=== PATIENT | male | born 1965 | race Caucasian/White ===

== ENCOUNTER 2016-08-22 01:07 | Emergency (ER) | payer MEDICAID ==
[2016-08-22] MEDS ORDERED: HYDROmorphone 1 MG/ML 1 ML SYRINGE IM STA ×2 (01:41→02:55)
[2016-08-22] MEDS ORDERED: ORPHENADRINE 30 MG/ML 2 ML VIAL IM STA (01:49)
[2016-08-22] MEDS ORDERED: methylPREDNISolone SOD SUCCI 125 MG/2 ML VIAL IM ONE (01:49)
--- NOTE | 2016-08-22 02:05 | ED ---
Back Pain HPI - General Chief Complaint: Back Pain/Injury Stated Complaint: BACK PAIN Time Seen by Provider: 08/22/16 01:41 Source: patient, family, RN notes reviewed Limitations: no limitations - History of Present Illness Initial Comments: Patient is a 51-year-old male presenting to the with chief complaint of left sciatic pain. Patient reports that he saw Dr. delacruz today and x-rays were reviewed and showed no evidence of any acute abnormalities. Patient was discharged by Dr. Delacruz with a prescription for steroids and Flexeril. Patient reports that at that after seeing Dr. Delacruz pain did get much worse. Patient states that approximately 12:30 this evening the pain got severe. He states that shoots down the left leg consistent with sciatica. Denies acute trauma or falls. Patient denies peripheral parestesias. He states that it is worse with movement. Denies fevers and chills. Denies saddle anesthesias. - Related Data Home Medications Medication Instructions Recorded Confirmed Citalopram Hydrobromide [CeleXA] 1 tab PO DAILY 08/22/16 08/22/16 Omeprazole 40 mg PO DAILY 08/22/16 08/22/16 Previous Rx's Medication Instructions Recorded HYDROcodone/APAP 10-325MG [[place] 1 tab PO Q6H PRN #15 tab 08/22/16 10-325] Allergies Allergy/AdvReac Type Severity Reaction Status Date / Time No Known Allergies Allergy Verified 08/22/16 01:14 Review of Systems ROS Statement: Those systems with pertinent positive or pertinent negative responses have been documented in the HPI. ROS Other: All systems not noted in ROS Statement are negative. Past Medical History Past Medical History: Asthma Additional Past Medical History / Comment(s): back pain History of Any Multi-Drug Resistant Organisms: None Reported Past Surgical History: Tonsillectomy Past Psychological History: Depression Smoking Status: Former smoker Past Alcohol Use History: Occasional Past Drug Use History: None Reported General Exam - General Exam Comments Initial Comments: Is a pleasant 51-year-old male. He does not appear to be in any acute distress at this time. He does appear to be in moderate discomfort with the leg pain. Limitations: no limitations General appearance: alert, in no apparent distress Head exam: Present: atraumatic, normocephalic, normal inspection Eye exam: Present: normal appearance, PERRL, EOMI. Absent: scleral icterus, conjunctival injection, periorbital swelling ENT exam: Present: normal exam, mucous membranes moist Neck exam: Present: normal inspection. Absent: tenderness, meningismus, lymphadenopathy Respiratory exam: Present: normal lung sounds bilaterally. Absent: respiratory distress, wheezes, rales, rhonchi, stridor Cardiovascular Exam: Present: regular rate, normal rhythm, normal heart sounds. Absent: systolic murmur, diastolic murmur, rubs, gallop, clicks GI/Abdominal exam: Present: soft, normal bowel sounds. Absent: distended, tenderness, guarding, rebound, rigid Left Hip exam: Present: normal inspection, full ROM Upper Leg exam: Present: normal inspection, full ROM Knee exam: Present: normal inspection, full ROM Lower Leg exam: Present: normal inspection, full ROM Ankle exam: Present: normal inspection, full ROM Foot/Toe exam: Present: normal inspection, full ROM Neurovascular tendon exam: Present: no vascular compromise Gait: observed and normal Back exam: Present: normal inspection, other (Patient has positive straight leg test. ) Neurological exam: Present: alert, oriented X3, CN II-XII intact Psychiatric exam: Present: normal affect, normal mood Skin exam: Present: warm, dry, intact, normal color. Absent: rash Course Vital Signs 08/22/16 08/22/16 01:15 03:31 Temperature 97.9 F 97.3 F L Pulse Rate 109 H 87 Respiratory 20 18 Rate Blood Pressure 149/93 110/58 O2 Sat by Pulse 97 95 Oximetry - Reevaluation(s) Reevaluation #1: 08/22/16 02:56 was reevaluated and states that his pain is continue to persist. Patient will be given a second IM injection of Dilaudid. Medical Decision Making - Medical Decision Making Patient is a 51-year-old male presenting to the with left-sided sciatica- like pain. He stated he saw Dr. Delacruz earlier today and received imaging studies. Patient refused to have additional imaging studies at this time. He denies any specific trauma causing the pain. Patient was given IM Dilaudid, Norflex and steroid shot. Patient will be discharged home at this time with a prescription for pain medication or see his artery receiving steroids and Flexeril from his orthopedic physician. Patient understands return parameters and treatment plan was discussed. Disposition Clinical Impression: Sciatica, left side Disposition: HOME SELF-CARE Condition: Good Instructions: Acute Low Back Pain (ED), Sciatica (ED) Additional Instructions: Patient instructed to take pain medications as prescribed. Follow-up with Dr. Delacruz. Return to the [facility] if any alarming signs or symptoms occur. Prescriptions: HYDROcodone/APAP 10-325MG [[place] 10-325] 1 tab PO Q6H PRN #15 tab PRN Reason: Pain Referrals: Zara Pisano MD [Primary Care Provider] - 1-2 days Time of Disposition: 03:18
[2016-08-22] MEDS ORDERED: HYDROcodone/APAP 10-325MG 1 EACH TAB PO ONE (03:18)
[2016-08-22 03:32] VITALS: BP 110/58; PULSE 87; RESP 18; TEMP 97.3
== END 2016-08-22 03:32 | disposition home or self-care (01) ==
LOC: EC 01:07
DX: M54.32 Sciatica, left side (principal); Z79.899 Other long term (current) drug therapy; F32.9 Major depressive disorder, single episode, unspecified; Z87.891 Personal history of nicotine dependence
CPT/HCPCS: 96372 ×4; 99283; J2360; J2930; J1170

== ENCOUNTER 2016-11-26 16:55 | Emergency (ER) | payer MEDICAID, OTHER ==
[2016-11-26] MEDS ORDERED: KETOROLAC 60 MG/2 ML VIAL IM STA (17:32)
--- NOTE | 2016-11-26 17:34 | ED ---
General Adult HPI - General Chief complaint: Fall Stated complaint: Fall/[facility]HS Time Seen by Provider: 11/26/16 17:17 Source: patient, RN notes reviewed Mode of arrival: ambulatory Limitations: no limitations - History of Present Illness Initial comments: Patient 51-year-old male who presents emergency room today with chief complaint of a fall that occurred just prior to arrival. He does admit that he was at work tripped over a box falling down onto the right side of his right ribs and an outstretched right arm. She does admit that pain is worse with movements in the right side of the ribs. Patient denies any head injury or loss conscious. He denies any other complaint associated symptoms at this time. Patient denies any recent fever, chills, shortness of breath, chest pain, back pain, abdominal pain, nausea or vomiting, numbness or tingling, dysuria or hematuria, constipation or diarrhea, headaches or visual changes, or any other complaints. - Related Data Home Medications Medication Instructions Recorded Confirmed Citalopram Hydrobromide [CeleXA] 1 tab PO DAILY 08/22/16 08/22/16 Omeprazole 40 mg PO DAILY 08/22/16 08/22/16 Previous Rx's Medication Instructions Recorded HYDROcodone/APAP 10-325MG [[place] 1 tab PO Q6H PRN #15 tab 08/22/16 10-325] Ibuprofen [Motrin] 600 mg PO Q6HR PRN #40 day 11/26/16 Allergies Allergy/AdvReac Type Severity Reaction Status Date / Time No Known Allergies Allergy Verified 08/22/16 01:14 Review of Systems ROS Statement: Those systems with pertinent positive or pertinent negative responses have been documented in the HPI. ROS Other: All systems not noted in ROS Statement are negative. Past Medical History Past Medical History: Asthma Additional Past Medical History / Comment(s): back pain History of Any Multi-Drug Resistant Organisms: None Reported Past Surgical History: Tonsillectomy Past Psychological History: Depression Smoking Status: Former smoker Past Alcohol Use History: Occasional Past Drug Use History: None Reported General Exam - General Exam Comments Initial Comments: General: The patient is awake and alert, in no distress, and does not appear acutely ill. Eye: Pupils are equal, round and reactive to light, extra-ocular movements are intact. No nystagmus. There is normal conjunctiva bilaterally. No signs of icterus. Ears, nose, mouth and throat: There are moist mucous membranes and no oral lesions. Neck: The neck is supple, there is no tenderness or JVD. Cardiovascular: There is a regular rate and rhythm. No murmur, rub or gallop is appreciated. Respiratory: Lungs are clear to auscultation, respirations are non-labored, breath sounds are equal. No wheezes, stridor, rales, or rhonchi. Gastrointestinal: Soft, non-distended, non-tender abdomen without masses or organomegaly noted. There is no rebound or guarding present. No CVA tenderness. Bowel sounds are unremarkable. Musculoskeletal: Normal appearance right wrist. No obvious deformity. Shows full range of motion. Sensations intact. Pulses bilateral 2+. Strength 5/5. Mild tenderness over the distal ulna. No snuffbox tenderness. No tenderness to the right elbow go down to the right hand. Normal appearance of the right ribs no obvious bruising or deformity. Locally tender over the lateral anterior aspect of the lower right ribs. Strength 5/5. Sensation intact. Pulses equal bilaterally 2+. Neurological: A&O x 3. CN II-XII intact, There are no obvious motor or sensory deficits. Coordination appears grossly intact. Speech is normal. Skin: Skin is warm and dry and no rashes or lesions are noted. Psychiatric: Cooperative, appropriate mood & affect, normal judgment. Limitations: no limitations Course Vital Signs 11/26/16 17:00 Temperature 98.2 F Pulse Rate 100 Respiratory 20 Rate Blood Pressure 128/89 O2 Sat by Pulse 98 Oximetry Medical Decision Making - Medical Decision Making X-rays reviewed and are unremarkable. No fractures or dislocation. Results were discussed with patient. Patient given a spirometer here in emergency room. Disposition Clinical Impression: Fall, Fall, Rib contusion, Wrist sprain Disposition: HOME SELF-CARE Condition: Good Instructions: Rib Contusion (ED) Additional Instructions: Please use medication as discussed. Please follow-up with family doctor in the next 2 days of symptoms have not improved. Please return to emergency room if the symptoms increase or worsen or for any other concerns. Prescriptions: Ibuprofen [Motrin] 600 mg PO Q6HR PRN #40 day PRN Reason: Pain Time of Disposition: 18:01
--- NOTE | 2016-11-26 17:47 | XR ---
EXAMINATION TYPE: XR ribs RT w pa chest xray DATE OF EXAM: 11/26/2016 5:43 PM COMPARISON: NONE HISTORY: Fell today TECHNIQUE: 5 views FINDINGS: Heart and mediastinum are normal. Lungs are clear of infiltrate. There is no sign of pleura l effusion or pneumothorax. I see no displaced rib fracture. IMPRESSION: Negative right rib exam. No cardiopulmonary disease.
--- NOTE | 2016-11-26 17:48 | XR ---
EXAMINATION TYPE: XR wrist limited RT DATE OF EXAM: 11/26/2016 5:43 PM COMPARISON: NONE HISTORY: Wrist pain TECHNIQUE: 2 views FINDINGS: I see no fracture nor dislocation. Joint spaces are normal. There are no erosions. IMPRESSION: Negative right wrist exam.
[2016-11-26 18:32] VITALS: BP 132/75; PULSE 85; RESP 18; TEMP 97.8
== END 2016-11-26 18:30 | disposition home or self-care (01) ==
LOC: EC 16:55
DX: S63.501A Unspecified sprain of right wrist, initial encounter (principal); S20.211A Contusion of right front wall of thorax, initial encounter; F32.9 Major depressive disorder, single episode, unspecified; Z87.891 Personal history of nicotine dependence; Z79.899 Other long term (current) drug therapy; W01.198A Fall on same level from slipping, tripping and stumbling with subsequent striking against other object, initial encounter; Y99.0 Civilian activity done for income or pay; Y92.69 Other specified industrial and construction area as the place of occurrence of the external cause
CPT/HCPCS: 99284; 96372; 71101; 73100; J1885

== ENCOUNTER → 2017-04-01 | Day surgery (SDC) | payer MEDICAID ==
[2017-03-28 16:40] VITALS: BMI 32.6
[~2017-04-01] MED LIST: LACTATED RINGERS 1,000 ML IV SCH; LIDOCAINE 1% 20 ML VIAL (10MG/ML) FOR IV START INTRADERMA PRN; LIDOCAINE 1% INJ 10MG/ML (20 ML MDV) ONE; MIDAZOLAM 2 MG/2 ML VIAL ONE; PROPOFOL 10 MG/ML 20 ML VIAL IV ONE; fentaNYL (PF) 50 MCG/ML 2 ML AMP ONE
[2017-04-01 07:33] VITALS: TEMP 97
[2017-04-01 09:17] VITALS: RESP 16
--- NOTE | 2017-04-01 09:21 | P.PCN ---
Date of Procedure: 04/01/17 Preoperative Diagnosis: Postoperative Diagnosis: Procedure(s) Performed: Procedures: 1. Esophagogastroduodenoscopy and biopsy. 2. Total colonoscopy. Preoperative diagnosis: Chronic reflux and screening for colon neoplasia. Postoperative diagnosis: 1. Sliding hiatal hernia and low-grade distal esophagitis with no evidence of strictures or Bell's esophagus. 2. Mild antral gastritis. 3. Low-grade internal hemorrhoids not bleeding at the time of the exam, otherwise, exam of the colon within normal limits. Preparation: HalfLytely prep. Sedation: Was provided by anesthesia. Brief clinical history: The patient is a 51-year-old male who is referred for this evaluation for screening for colon cancer age being his risk factor. In addition, he has issues with constipation and intermittent bleeding he attributes to hemorrhoids. The patient had had reflux requiring omeprazole therapy for several years but is not having any alarm symptoms. This would be his first upper and lower endoscopy. There is no family history of colon cancer. Procedure: With the patient on his left lateral decubitus position and after informed consent and adequate sedation, I passed the Olympus-GIF 160 video upper endoscope through the cricopharyngeus down the esophagus. GE junction was irregular and was at around 38-39 cm from the incisors and there was a sliding hiatal hernia measuring 1-2 cm. There were no strictures or Bell's esophagus. The distal esophagus showed short linear erosion or 2 terminating at the level of the GE junction consistent with LA grade A distal esophagitis. The endoscope was then passed into the stomach which was insufflated with air and inspected in detail including the retroflex view in the cardia. There was some mottling and erythema in the antrum but no ulcers or erosions. Pyloric channel, duodenal bulb, post bulbar area and descending duodenum appeared within normal limits. I obtained biopsies from the duodenum, antrum and esophagus then the endoscope was withdrawn and I proceeded with the colonoscopy. Perianal area did not show any fissures or fistulas. There were no masses felt on digital rectal examination. The Olympus CFQ 160L video colonoscope was then inserted in the rectum in the usual fashion and advanced to the cecum. I passed the endoscope into the ileocecal valve without difficulty. The mucosa appeared healthy. No abnormalities were seen in the terminal ileum or colon including any polyps or diverticular disease. I retroflexed the endoscope in the rectum before the endoscope was withdrawn. Low-grade internal hemorrhoids were noted with no evidence of bleeding. The patient tolerated the procedure well. Plan: The patient was reassured. Discussed dietary measures and local care for hemorrhoids. Wel also discussed antireflux diet and measures. Will await biopsy results and make additional recommendations regarding his acid reflux regimen. He will follow up with you as planned. Implants: Indications for Procedure: Operative Findings: Description of Procedure:
[2017-04-01 09:43] VITALS: BP 113/70; PULSE 80
== END ==
LOC: ORWHC2ENDO 07:22
DX: Z12.11 Encounter for screening for malignant neoplasm of colon (principal); K21.0 Gastro-esophageal reflux disease with esophagitis; K29.50 Unspecified chronic gastritis without bleeding; K44.9 Diaphragmatic hernia without obstruction or gangrene; K64.8 Other hemorrhoids; K59.00 Constipation, unspecified; I10 Essential (primary) hypertension; J45.909 Unspecified asthma, uncomplicated; M54.9 Dorsalgia, unspecified; Z79.899 Other long term (current) drug therapy
CPT/HCPCS: 88305; 88342; 43239; J2250; J2001; J3010; J2704; G0121

== ENCOUNTER 2017-04-30 12:31 | Emergency (ER) | payer MEDICAID ==
[2017-04-30 12:51] VITALS: RESP 18; TEMP 97.3
[2017-04-30 14:19] LABS: Basophils % (A) 0 %; CH 30.5; CHCM 34.6; Eosinophils # (A) 0.4 k/uL (0-0.7); Eosinophils % (A) 6 %; HDW 2.46; Luc # (Auto) 0.13; Luc % (Auto) 2; Lymphocytes # (A) 0.9 k/uL (1.0-4.8); Lymphocytes % (A) 14 %; MCH 29.5 pg (25.0-35.0); MCHC 33.3 g/dL (31.0-37.0); MCV 88.6 fL (80.0-100.0); Mean Platelet Volume 8.1; Monocytes # (A) 0.4 k/uL (0-1.0); Monocytes % (A) 7 %; Neutrophils # (A) 4.4 k/uL (1.3-7.7); Neutrophils % (A) 70 %; RBC 4.74 m/uL (4.30-5.90); RDW 13.9 % (11.5-15.5); WBC 6.3 k/uL (3.8-10.6); WBC (Perox) 6.16
[2017-04-30 14:24] LABS: ALT 33 U/L (21-72); AST 22 U/L (17-59); Alkaline Phosphatase 56 U/L (38-126); Anion Gap 7 mmol/L; Blood Urea Nitrogen 18 mg/dL (9-20); Calcium 9.1 mg/dL (8.4-10.2); Carbon Dioxide 26 mmol/L (22-30); Chloride 105 mmol/L (98-107); Glucose 85 mg/dL (74-99); Non-African American GFR(MDRD) >60 (>60 ml/min/1.73 sqM); Potassium 4.4 mmol/L (3.5-5.1); Sodium 138 mmol/L (137-145); Total Bilirubin 0.8 mg/dL (0.2-1.3); Total Protein 6.8 g/dL (6.3-8.2)
[2017-04-30 14:26] LABS: INR 1.1 (<1.2); Partial Thromboplastin Time 24.9 sec (22.0-30.0); Prothrombin Time 11.2 sec (9.0-12.0)
--- NOTE | 2017-04-30 14:57 | ED ---
GI Bleed HPI - General Chief complaint: GI Bleed Stated complaint: rectal bleeding Time Seen by Provider: 04/30/17 13:01 Source: patient Mode of arrival: ambulatory Limitations: no limitations - History of Present Illness Initial comments: This 52-year-old white male presents with a complaint of some rectal bleeding. He states that he had a bowel movement this morning and he had a large amount of blood in the toilet. This was bright red blood. He denies any problems with lightheadedness or fatigue. Eyes any abdominal pain chest pain or shortness of breath. He denies taking any blood thinners or aspirin. He states that he has had a workup by gastroenterology 2 months ago and had an EGD as well as a colonoscopy. They noted that he has a sliding hiatal hernia, mild esophagitis, mild gastritis, and some mild internal hemorrhoids. He had no further bleeding until this past morning. He denies any other complaints or modifying factors. - Related Data Home Medications Medication Instructions Recorded Confirmed Citalopram Hydrobromide [CeleXA] 40 mg PO DAILY@1700 08/22/16 04/30/17 Omeprazole 40 mg PO DAILY 08/22/16 04/30/17 Losartan Potassium 50 mg PO BID 03/28/17 04/30/17 Multivitamins, Thera [Multivitamin 1 tab PO DAILY 03/28/17 04/30/17 (formulary)] buPROPion HCL [Wellbutrin Sr] 100 mg PO DAILY@1700 03/28/17 04/30/17 Previous Rx's Medication Instructions Recorded Hydrocortisone [Anusol-Hc] 1 applic RECTAL TID #30 gm 04/30/17 Allergies Allergy/AdvReac Type Severity Reaction Status Date / Time No Known Allergies Allergy Verified 04/30/17 14:06 Review of Systems ROS Statement: Those systems with pertinent positive or pertinent negative responses have been documented in the HPI. ROS Other: All systems not noted in ROS Statement are negative. Past Medical History Past Medical History: Asthma, GERD/Reflux, Hypertension Additional Past Medical History / Comment(s): intermittent freq ls stools with constipation,rectal bleeding,hemorrhoids,back pain bulging disc History of Any Multi-Drug Resistant Organisms: None Reported Past Surgical History: Tonsillectomy Additional Past Surgical History / Comment(s): growth removed from scrotum at age 13,needle removed rt foot Past Anesthesia/Blood Transfusion Reactions: No Reported Reaction Additional Past Anesthesia/Blood Transfusion Reaction / Comment(s): no blood transfusion Past Psychological History: Depression Smoking Status: Former smoker - Past Family History Father Family Medical History: Congestive Heart Failure (CHF), CVA/TIA, Diabetes Mellitus, Renal Disease Mother Family Medical History: No Reported History General Exam - General Exam Comments Initial Comments: GENERAL: The patient is well nourished and well hydrated. VITAL SIGNS: Heart rate, blood pressure, respiratory rate reviewed as recorded in nurse's notes. EYES: Pupils are round and reactive. Extraocular movements are intact. No conjunctival / lid redness or swelling. ENT: No external evidence of injury, swelling, or ecchymosis. Airway is patent. Throat is clear. NECK: Nontender. No swelling or evidence of injury. No subcutaneous emphysema. Trachea is midline. No thyroid mass. HEART: Regular rate and rhythm. Good peripheral pulses. LUNGS/CHEST: Breath sounds clear and equal bilaterally. No rales, rhonchi, or wheezes. No ecchymosis, subcutaneous emphysema, or tenderness. ABDOMEN: Abdomen soft without tenderness. No palpable masses or organomegaly. No peritoneal signs. No abdominal wall swelling or ecchymosis. EXTREMITIES: No extremity tenderness. Normal muscle tone and function. No thoracolumbar tenderness. NEUROLOGIC: Sensation is grossly intact. Cranial nerve exam reveals face is symmetrical, tongue is midline, speech is clear. SKIN: No abrasions or ecchymosis is noted. No induration or masses noted. PSYCHIATRIC: Alert and oriented. Appropriate behavior and judgment. Rectal exam: There are no external hemorrhoids noted. There is some mild amount of blood noted on digital rectal exam. Hemoccult is positive. Limitations: no limitations Course Vital Signs 04/30/17 12:48 Temperature 97.3 F L Pulse Rate 96 Respiratory 18 Rate Blood Pressure 123/81 O2 Sat by Pulse 97 Oximetry Medical Decision Making - Medical Decision Making The patient was seen and examined. All diagnostics were reviewed. His hemoglobin is quite stable. His Hemoccult is positive. It is felt as though his rectal bleeding is likely due to his internal hemorrhoids. He is counseled regarding this in detail. It is felt as though he would benefit from avoiding any aspirin, nonsteroidal anti-inflammatory drugs, alcohol, and spicy foods. It is felt as though he is stable for discharge. His EGD and colonoscopy reports are reviewed from 2 months ago. It is felt as though he may benefit from some Anusol and follow up with GI. In addition, he will use his 's Benefiber. He leaves in no identifiable distress. Return parameters are discussed. - Lab Data Result diagrams: 04/30/17 13:55 04/30/17 13:55 Lab Results 04/30/17 04/30/17 04/30/17 Range/Units 13:15 13:55 13:55 WBC 6.3 (3.8-10.6) k/uL RBC 4.74 (4.30-5.90) m/uL Hgb 14.0 (13.0-17.5) gm/dL Hct 42.0 (39.0-53.0) % MCV 88.6 (80.0-100.0) fL MCH 29.5 (25.0-35.0) pg MCHC 33.3 (31.0-37.0) g/dL RDW 13.9 (11.5-15.5) % Plt Count 196 (150-450) k/uL Neutrophils % 70 % Lymphocytes % 14 % Monocytes % 7 % Eosinophils % 6 % Basophils % 0 % Neutrophils # 4.4 (1.3-7.7) k/uL Lymphocytes # 0.9 L (1.0-4.8) k/uL Monocytes # 0.4 (0-1.0) k/uL Eosinophils # 0.4 (0-0.7) k/uL Basophils # 0.0 (0-0.2) k/uL PT (9.0-12.0) sec INR (<1.2) APTT (22.0-30.0) sec Sodium 138 (137-145) mmol/L Potassium 4.4 (3.5-5.1) mmol/L Chloride 105 (98-107) mmol/L Carbon Dioxide 26 (22-30) mmol/L Anion Gap 7 mmol/L BUN 18 (9-20) mg/dL Creatinine 0.83 (0.66-1.25) mg/dL Est GFR (MDRD) Af Amer >60 (>60 ml/min/1.73 sqM) Est GFR (MDRD) Non-Af >60 (>60 ml/min/1.73 sqM) Glucose 85 (74-99) mg/dL Calcium 9.1 (8.4-10.2) mg/dL Total Bilirubin 0.8 (0.2-1.3) mg/dL AST 22 (17-59) U/L ALT 33 (21-72) U/L Alkaline Phosphatase 56 (38-126) U/L Total Protein 6.8 (6.3-8.2) g/dL Albumin 4.0 (3.5-5.0) g/dL Stool Occult Blood Positive (Negative) 04/30/17 Range/Units 13:55 WBC (3.8-10.6) k/uL RBC (4.30-5.90) m/uL Hgb (13.0-17.5) gm/dL Hct (39.0-53.0) % MCV (80.0-100.0) fL MCH (25.0-35.0) pg MCHC (31.0-37.0) g/dL RDW (11.5-15.5) % Plt Count (150-450) k/uL Neutrophils % % Lymphocytes % % Monocytes % % Eosinophils % % Basophils % % Neutrophils # (1.3-7.7) k/uL Lymphocytes # (1.0-4.8) k/uL Monocytes # (0-1.0) k/uL Eosinophils # (0-0.7) k/uL Basophils # (0-0.2) k/uL PT 11.2 (9.0-12.0) sec INR 1.1 (<1.2) APTT 24.9 (22.0-30.0) sec Sodium (137-145) mmol/L Potassium (3.5-5.1) mmol/L Chloride (98-107) mmol/L Carbon Dioxide (22-30) mmol/L Anion Gap mmol/L BUN (9-20) mg/dL Creatinine (0.66-1.25) mg/dL Est GFR (MDRD) Af Amer (>60 ml/min/1.73 sqM) Est GFR (MDRD) Non-Af (>60 ml/min/1.73 sqM) Glucose (74-99) mg/dL Calcium (8.4-10.2) mg/dL Total Bilirubin (0.2-1.3) mg/dL AST (17-59) U/L ALT (21-72) U/L Alkaline Phosphatase (38-126) U/L Total Protein (6.3-8.2) g/dL Albumin (3.5-5.0) g/dL Stool Occult Blood (Negative) Disposition Clinical Impression: Hematochezia, Internal hemorrhoids Disposition: HOME SELF-CARE Condition: Good Prescriptions: Hydrocortisone [Anusol-Hc] 1 applic RECTAL TID #30 gm Referrals: Remy Infante MD [STAFF PHYSICIAN] - 05/03/17 Zara Pisano MD [Primary Care Provider] - 05/03/17 Time of Disposition: 14:55
--- NOTE | 2017-04-30 15:03 | ED ---
Medical Decision Making - Lab Data Result diagrams: 04/30/17 13:55 04/30/17 13:55 Lab Results 04/30/17 04/30/17 04/30/17 Range/Units 13:15 13:55 13:55 WBC 6.3 (3.8-10.6) k/uL RBC 4.74 (4.30-5.90) m/uL Hgb 14.0 (13.0-17.5) gm/dL Hct 42.0 (39.0-53.0) % MCV 88.6 (80.0-100.0) fL MCH 29.5 (25.0-35.0) pg MCHC 33.3 (31.0-37.0) g/dL RDW 13.9 (11.5-15.5) % Plt Count 196 (150-450) k/uL Neutrophils % 70 % Lymphocytes % 14 % Monocytes % 7 % Eosinophils % 6 % Basophils % 0 % Neutrophils # 4.4 (1.3-7.7) k/uL Lymphocytes # 0.9 L (1.0-4.8) k/uL Monocytes # 0.4 (0-1.0) k/uL Eosinophils # 0.4 (0-0.7) k/uL Basophils # 0.0 (0-0.2) k/uL PT (9.0-12.0) sec INR (<1.2) APTT (22.0-30.0) sec Sodium 138 (137-145) mmol/L Potassium 4.4 (3.5-5.1) mmol/L Chloride 105 (98-107) mmol/L Carbon Dioxide 26 (22-30) mmol/L Anion Gap 7 mmol/L BUN 18 (9-20) mg/dL Creatinine 0.83 (0.66-1.25) mg/dL Est GFR (MDRD) Af Amer >60 (>60 ml/min/1.73 sqM) Est GFR (MDRD) Non-Af >60 (>60 ml/min/1.73 sqM) Glucose 85 (74-99) mg/dL Calcium 9.1 (8.4-10.2) mg/dL Total Bilirubin 0.8 (0.2-1.3) mg/dL AST 22 (17-59) U/L ALT 33 (21-72) U/L Alkaline Phosphatase 56 (38-126) U/L Total Protein 6.8 (6.3-8.2) g/dL Albumin 4.0 (3.5-5.0) g/dL Stool Occult Blood Positive (Negative) 04/30/17 Range/Units 13:55 WBC (3.8-10.6) k/uL RBC (4.30-5.90) m/uL Hgb (13.0-17.5) gm/dL Hct (39.0-53.0) % MCV (80.0-100.0) fL MCH (25.0-35.0) pg MCHC (31.0-37.0) g/dL RDW (11.5-15.5) % Plt Count (150-450) k/uL Neutrophils % % Lymphocytes % % Monocytes % % Eosinophils % % Basophils % % Neutrophils # (1.3-7.7) k/uL Lymphocytes # (1.0-4.8) k/uL Monocytes # (0-1.0) k/uL Eosinophils # (0-0.7) k/uL Basophils # (0-0.2) k/uL PT 11.2 (9.0-12.0) sec INR 1.1 (<1.2) APTT 24.9 (22.0-30.0) sec Sodium (137-145) mmol/L Potassium (3.5-5.1) mmol/L Chloride (98-107) mmol/L Carbon Dioxide (22-30) mmol/L Anion Gap mmol/L BUN (9-20) mg/dL Creatinine (0.66-1.25) mg/dL Est GFR (MDRD) Af Amer (>60 ml/min/1.73 sqM) Est GFR (MDRD) Non-Af (>60 ml/min/1.73 sqM) Glucose (74-99) mg/dL Calcium (8.4-10.2) mg/dL Total Bilirubin (0.2-1.3) mg/dL AST (17-59) U/L ALT (21-72) U/L Alkaline Phosphatase (38-126) U/L Total Protein (6.3-8.2) g/dL Albumin (3.5-5.0) g/dL Stool Occult Blood (Negative) Disposition Clinical Impression: Hematochezia, Internal hemorrhoids Disposition: HOME SELF-CARE Condition: Good Instructions: Gastrointestinal Bleeding (ED), Hemorrhoids (ED) Prescriptions: Hydrocortisone [Anusol-Hc] 1 applic RECTAL TID #30 gm Referrals: Zara Pisano MD [Primary Care Provider] - 05/03/17 Remy Infante MD [STAFF PHYSICIAN] - 05/03/17
[2017-04-30 15:12] VITALS: BP 133/74; PULSE 64
== END 2017-04-30 15:12 | disposition home or self-care (01) ==
LOC: EC 12:31
DX: K64.8 Other hemorrhoids (principal); K92.1 Melena; K21.9 Gastro-esophageal reflux disease without esophagitis; I10 Essential (primary) hypertension; F32.9 Major depressive disorder, single episode, unspecified; Z87.891 Personal history of nicotine dependence; Z79.899 Other long term (current) drug therapy
CPT/HCPCS: 36415; 80053; 82272; 85025; 85610; 85730; 99284

== ENCOUNTER → 2017-07-08 | Outpatient (CLI) | payer MEDICAID ==
[2017-07-08 08:38] LABS: Basophils % (A) 1 %; CH 29.7; CHCM 32.6; Eosinophils # (A) 0.3 k/uL (0-0.7); Eosinophils % (A) 7 %; HCT 45.4 % (39.0-53.0); HDW 2.46; HGB 14.6 gm/dL (13.0-17.5); Luc # (Auto) 0.12; Luc % (Auto) 2; Lymphocytes # (A) 0.8 k/uL (1.0-4.8); Lymphocytes % (A) 16 %; MCH 29.4 pg (25.0-35.0); MCHC 32.2 g/dL (31.0-37.0); MCV 91.5 fL (80.0-100.0); Mean Platelet Volume 7.3; Monocytes # (A) 0.4 k/uL (0-1.0); Monocytes % (A) 7 %; Neutrophils # (A) 3.5 k/uL (1.3-7.7); Neutrophils % (A) 68 %; RBC 4.96 m/uL (4.30-5.90); RDW 13.1 % (11.5-15.5); WBC 5.2 k/uL (3.8-10.6); WBC (Perox) 5.23
[2017-07-08 09:15] LABS: ALT 37 U/L (21-72); AST 18 U/L (17-59); Alkaline Phosphatase 61 U/L (38-126); Anion Gap 8 mmol/L; Blood Urea Nitrogen 18 mg/dL (9-20); Calcium 9.4 mg/dL (8.4-10.2); Carbon Dioxide 30 mmol/L (22-30); Chloride 103 mmol/L (98-107); Cholesterol 205 mg/dL (<200); Glucose 114 mg/dL (74-99); HDL Cholesterol 49 mg/dL (40-60); Non-African American GFR(MDRD) >60 (>60 ml/min/1.73 sqM); Potassium 4.6 mmol/L (3.5-5.1); Sodium 141 mmol/L (137-145); Total Bilirubin 0.6 mg/dL (0.2-1.3); Total Protein 6.9 g/dL (6.3-8.2)
== END | disposition home or self-care (01) ==
LOC: LABWHC1 07:50
PROVIDERS: ATTEND Internal Medicine
DX: E78.5 Hyperlipidemia, unspecified (principal); L10.9 Pemphigus, unspecified
CPT/HCPCS: 36415; 80053; 80061; 84439; 84443; 85025

== ENCOUNTER → 2019-06-13 | Outpatient (CLI) | payer MEDICAID ==
[2019-06-13 11:31] LABS: Basophils % (A) 0 %; Eosinophils # (A) 0.2 k/uL (0-0.7); Eosinophils % (A) 5 %; HCT 42.9 % (39.0-53.0); HGB 13.9 gm/dL (13.0-17.5); Lymphocytes # (A) 0.8 k/uL (1.0-4.8); Lymphocytes % (A) 16 %; MCH 28.8 pg (25.0-35.0); MCHC 32.3 g/dL (31.0-37.0); MCV 89.3 fL (80.0-100.0); Mean Platelet Volume 6.5; Monocytes # (A) 0.3 k/uL (0-1.0); Monocytes % (A) 6 %; Neutrophils # (A) 3.2 k/uL (1.3-7.7); Neutrophils % (A) 70 %; Platelet Count 240 k/uL (150-450); RDW 13.1 % (11.5-15.5); WBC 4.6 k/uL (3.8-10.6)
[2019-06-13 17:55] LABS: ALT 34 U/L (10-49); AST 25 U/L (14-35); Albumin/Globulin Ratio 2.15 (1.60-3.17); Alkaline Phosphatase 78 U/L (41-126); BUN/Creat Ratio 22.22 Ratio (12.00-20.00); Calcium 8.8 mg/dL (8.7-10.3); Carbon Dioxide 27.9 mmol/L (21.6-31.8); Chloride 104 mmol/L (96-109); Chol/HDL Ratio 2.67; Cholesterol 152 mg/dL (0-200); Glucose 91 mg/dL (70-110); Potassium 4.4 mmol/L (3.5-5.5); Sodium 141 mmol/L (135-145); Total Bilirubin 0.7 mg/dL (0.2-1.2); Total Protein 6.3 g/dL (6.2-8.2); Triglycerides <50.0 mg/dL (0.0-149.0); Uric Acid 4.7 mg/dL (3.7-8.7)
[2019-06-13 18:47] LABS: Hemoglobin A1C 5.6 % (4.0-6.0)
== END | disposition home or self-care (01) ==
LOC: LABWHC1 10:09
PROVIDERS: ATTEND Internal Medicine
DX: Z00.00 Encounter for general adult medical examination without abnormal findings (principal); I10 Essential (primary) hypertension; E78.1 Pure hyperglyceridemia; M10.9 Gout, unspecified; R73.9 Hyperglycemia, unspecified
CPT/HCPCS: 36415; 80053; 80061; 83036; 84153; 84439; 84443; 84550; 85025

== ENCOUNTER 2019-12-20 07:58 | Emergency (ER) | payer MEDICAID ==
[2019-12-20 08:06] VITALS: TEMP 98.1
[2019-12-20] MEDS ORDERED: KETOROLAC 60 MG/2 ML VIAL IM STA (08:19)
[2019-12-20] MEDS ORDERED: MORPHINE SULFATE 4 MG/ML SYRINGE IM STA (08:19)
--- NOTE | 2019-12-20 08:23 | ED ---
Upper Extremity HPI - General Chief Complaint: Extremity Injury, Upper Stated Complaint: shoulder pain Time Seen by Provider: 12/20/19 08:01 Source: patient Mode of arrival: ambulatory Limitations: no limitations - History of Present Illness Initial Comments: This a 54-year-old male presents emergency Department with chief complaint of right shoulder pain. Patient states he had some discomfort few months ago after what he thought was from working out. Patient states pain pain was bearable up until last few days the pain has become unbearable. Patient states she is left- handed but states that the pain is right shoulder. He states he feels that it's just on the outside of his shoulder or muscle region. Patient denies any paresthesias. Denies any recent trauma no falls no current neck discomfort. Denies any chest pain or shortness of breath. He states that he did take some old pain medication with no relief of symptoms. - Related Data Home Medications Medication Instructions Recorded Confirmed Citalopram Hydrobromide [CeleXA] 40 mg PO DAILY@1700 08/22/16 04/30/17 Omeprazole 40 mg PO DAILY 08/22/16 04/30/17 Losartan Potassium 50 mg PO BID 03/28/17 04/30/17 Multivitamins, Thera [Multivitamin 1 tab PO DAILY 03/28/17 04/30/17 (formulary)] buPROPion HCL [Wellbutrin Sr] 100 mg PO DAILY@1700 03/28/17 04/30/17 Previous Rx's Medication Instructions Recorded Hydrocortisone [Anusol-Hc] 1 applic RECTAL TID #30 gm 04/30/17 Naproxen 500 mg PO Q12HR #30 tablet 12/20/19 Allergies Allergy/AdvReac Type Severity Reaction Status Date / Time No Known Allergies Allergy Verified 12/20/19 08:03 Review of Systems ROS Statement: Those systems with pertinent positive or pertinent negative responses have been documented in the HPI. ROS Other: All systems not noted in ROS Statement are negative. Past Medical History Past Medical History: Asthma, GERD/Reflux, Hypertension Additional Past Medical History / Comment(s): intermittent freq ls stools with constipation,rectal bleeding,hemorrhoids,back pain bulging disc History of Any Multi-Drug Resistant Organisms: None Reported Past Surgical History: Tonsillectomy Additional Past Surgical History / Comment(s): growth removed from scrotum at age 13,needle removed rt foot Past Anesthesia/Blood Transfusion Reactions: No Reported Reaction Additional Past Anesthesia/Blood Transfusion Reaction / Comment(s): no blood t ransfusion Past Psychological History: Depression Smoking Status: Former smoker Past Alcohol Use History: Daily Past Drug Use History: None Reported - Past Family History Father Family Medical History: Congestive Heart Failure (CHF), CVA/TIA, Diabetes Mellitus, Renal Disease Mother Family Medical History: No Reported History General Exam Limitations: no limitations General appearance: alert, in no apparent distress Head exam: Present: atraumatic, normocephalic, normal inspection Eye exam: Present: normal appearance, PERRL, EOMI. Absent: scleral icterus, conjunctival injection, periorbital swelling ENT exam: Present: normal exam, normal oropharynx, mucous membranes moist Neck exam: Present: normal inspection (Full range of motion ), full ROM. Absent: tenderness, meningismus, lymphadenopathy Respiratory exam: Present: normal lung sounds bilaterally. Absent: respiratory distress, wheezes, rales, rhonchi, stridor Cardiovascular Exam: Present: regular rate, normal rhythm, normal heart sounds. Absent: systolic murmur, diastolic murmur, rubs, gallop, clicks Extremities exam: Present: other (Right shoulder there is slightly decreased range of motion secondary to pain neurovascular intact with equal radial pulses. Campground Caretaker strength is equal bilaterally patient has tenderness over the acromial process in the subacromial bursa region. Patient has equal color equal warmth) Neurological exam: Present: alert, oriented X3, CN II-XII intact, reflexes normal. Absent: motor sensory deficit Skin exam: Present: warm, dry, intact, normal color. Absent: rash Course Vital Signs 12/20/19 08:03 Temperature 98.1 F Pulse Rate 76 Respiratory 18 Rate Blood Pressure 133/93 O2 Sat by Pulse 99 Oximetry Medical Decision Making - Medical Decision Making X-ray of the right shoulder was obtained which does not show any significant abnormality. Patient's symptoms are consistent with right shoulder bursitis. Patient we started on a regimen anti-inflammatories, pain control with follow-up with orthopedics. Disposition Clinical Impression: Bursitis of right shoulder, Calcifying tendinitis of shoulder Disposition: HOME SELF-CARE Condition: Stable Instructions (If sedation given, give patient instructions): Shoulder Bursitis (ED), Calcific Tendinitis (ED) Additional Instructions: Please return to the Emergency Department if symptoms worsen or any other concerns. Prescriptions: Naproxen 500 mg PO Q12HR #30 tablet Is patient prescribed a controlled substance at d/c from ED?: No Referrals: Zara Pisano MD [Primary Care Provider] - 1-2 days Milan Nugent DO [Doctor of Osteopathic Medicine] - 1-2 days Time of Disposition: 08:56
--- NOTE | 2019-12-20 08:33 | XR ---
EXAMINATION TYPE: XR shoulder complete RT , 3 VIEWS DATE OF EXAM ORDERED: 12/20/2019 HISTORY: pain. COMPARISON: None. FINDINGS: There is amorphous calcification adjacent to the insertion site of the supraspinatus tendo n. This may represent chronic calcific tendinosis. No fracture, dislocation or other acute bony abnor mality is seen. IMPRESSION: 1. NO ACUTE OSSEOUS LESION. 2. SUSPICION OF CHRONIC CALCIFIC TENDINOSIS.
[2019-12-20 09:14] VITALS: BP 138/92; PULSE 72; RESP 20
== END 2019-12-20 09:14 | disposition home or self-care (01) ==
LOC: EC 07:58
DX: M75.51 Bursitis of right shoulder (principal); M75.31 Calcific tendinitis of right shoulder; K21.9 Gastro-esophageal reflux disease without esophagitis; I10 Essential (primary) hypertension; F32.9 Major depressive disorder, single episode, unspecified; Z87.891 Personal history of nicotine dependence; Z79.899 Other long term (current) drug therapy
CPT/HCPCS: 73030; 99283; 96372 ×2; J2270; J1885

== ENCOUNTER → 2020-04-26 | Outpatient (CLI) | payer MEDICAID ==
[2020-04-26 09:33] LABS: Basophils % (A) 1 %; Eosinophils # (A) 0.4 k/uL (0-0.7); Eosinophils % (A) 8 %; HCT 41.9 % (39.0-53.0); HGB 13.5 gm/dL (13.0-17.5); Lymphocytes # (A) 0.9 k/uL (1.0-4.8); Lymphocytes % (A) 19 %; MCH 28.5 pg (25.0-35.0); MCHC 32.3 g/dL (31.0-37.0); MCV 88.5 fL (80.0-100.0); Monocytes # (A) 0.3 k/uL (0-1.0); Monocytes % (A) 7 %; Neutrophils # (A) 2.8 k/uL (1.3-7.7); Neutrophils % (A) 62 %; Platelet Count 217 k/uL (150-450); RBC 4.74 m/uL (4.30-5.90); RDW 12.5 % (11.5-15.5); WBC 4.5 k/uL (3.8-10.6)
[2020-04-26 09:43] LABS: Potassium 4.5 mmol/L (3.5-5.1)
== END | disposition home or self-care (01) ==
LOC: LABPAT 08:48
PROVIDERS: ATTEND Orthopaedic Surgery
DX: Z01.818 Encounter for other preprocedural examination (principal); M75.41 Impingement syndrome of right shoulder
CPT/HCPCS: 36415; 80051; 85025; 93005

== ENCOUNTER → 2020-04-27 | Day surgery (SDC) | payer MEDICAID ==
[2020-04-25 15:52] VITALS: BMI 32.9
--- NOTE | 2020-04-26 16:10 | HP ---
HISTORY AND PHYSICAL DATE OF SURGERY: 04/27/2020 Jorden Almaraz is a 55-year-old patient seen with progressive right shoulder pain. We discussed options for treatment. He elected to proceed with arthroscopy. Consent regarding the procedure was obtained. PAST MEDICAL HISTORY: Hypertension, hyperlipidemia, anxiety. PAST SURGICAL HISTORY: Noncontributory. DAILY MEDICATIONS: Antihypertensive, Prilosec, Wellbutrin. ALLERGIES: NONE. SOCIAL HISTORY: He denies current tobacco use. PHYSICAL EVALUATION OF RIGHT SHOULDER: Flexion 150 degrees, abduction 140 degrees. External rotation is 40 degrees with some pain and weakness. Tenderness along the anterior lateral acromion and rotator cuff insertion site. Impingement sign is positive at 90 degrees. Drop-arm sign is positive. His distal neurovascular exam is intact. RIGHT SHOULDER RADIOGRAPHS: Right shoulder radiographs revealed a type 2 anterior acromion, evidence for severe acromioclavicular osteoarthritis and cystic changes of the greater tuberosity. An MRI of the right shoulder was obtained and revealed rotator cuff tendon tear and labral tear. IMPRESSION: 1. Right shoulder impingement with rotator cuff tear. 2. Right shoulder labral tear. 3. Right shoulder acromioclavicular joint osteoarthritis. 4. Hypertension. 5. Hyperlipidemia. PLAN: Right shoulder arthroscopy with subacromial decompression, arthroscopic rotator cuff repair, Scotty procedure and debridement. MMODL / IJN: [id number] /
[~2020-04-27] MED LIST changes: +DEXAMETHASONE SOD PHOSPHATE 10 MG/ML 1 ML VIAL IV ONE; +DEXAMETHASONE SOD PHOSPHATE 4 MG/ML 1 ML VIAL ONE; +FAMOTIDINE 20 MG/2 ML VIAL IV PRN; +HYDROmorphone 0.5 MG/0.5 ML SYRINGE IVP PRN; +LACTATED RINGERS 1,000 ML IV ONE; +LIDOCAINE 1% (10MG/ML) FOR IV START INTRADERMA ONE; -LIDOCAINE 1% 20 ML VIAL (10MG/ML) FOR IV START INTRADERMA PRN; +MIDAZOLAM 2 MG/2 ML VIAL IVP ONE; +ONDANSETRON 4 MG/2 ML VIAL IVP PRN; +ONDANSETRON 4 MG/2 ML VIAL ONE; +ROPIVACAINE 5 MG/ML 30 ML VIAL ONE; +SUCCINYLCHOLINE CHLORIDE VIAL 200 MG/10 ML VIAL IV ONE; +ceFAZolin 3 GM in SODIUM CHLORIDE 0.9% 100 ML IVPB ONE
--- NOTE | 2020-04-27 08:55 | P.ANPRN ---
Procedure Note - Anesthesia - Nerve Block Performed Right Interscalene Time Out Performed: Yes (07:54) Date of Procedure: 04/27/20 Procedure Start Time: :54 Procedure Stop Time: 08:11 Location of Patient: PreOp Indication: Acute Post-Operative Pain, Requested by Surgeon (Dr Stewart) Sedation Type: Sedate with meaningful contact maintained Preparation: Sterile Prep Position: Supine Catheter: None Needle Types: Pajunk Needle Gauge: Other (see comment) (22g) Ultrasound used to visualize needle placement: Yes Ultrasound used to observe medication spread: Yes Injectate: 0.5% Ropivacaine (see comment for volume) (20cc + Decadron 4mg) Blood Aspirated: No Pain Paresthesia on Injection Noted: No Resistance on Injection: Normal Image Stored and Saved: Yes Events: Uneventful and Well Tolerated
--- NOTE | 2020-04-27 10:03 | P.OP ---
Date of Procedure: 04/27/20 Preoperative Diagnosis: Right shoulder impingement Postoperative Diagnosis: 1. Right shoulder rotator cuff tear 2. Right shoulder impingement 3. Right shoulder acromioclavicular joint osteoarthritis 4. Right shoulder partial long head biceps tendon tear 5. Right shoulder superficial labral tear Procedure(s) Performed: 1. Right shoulder arthroscopic rotator cuff repair 2. Right shoulder arthroscopic subacromial decompression 3. Right shoulder arthroscopic Scotty procedure 4. Right shoulder arthroscopic biceps tenotomy 5. Right shoulder arthroscopic debridement labral tear Implants: 15.5 Arthrex swivel lock anchor Anesthesia: GETA, regional (Interscalene block) Surgeon: Wilver Stewart Bundler #1: Damian Munoz Estimated Blood Loss (ml): 8 Pathology: none sent Condition: stable Disposition: PACU Indications for Procedure: 55-year-old patient seen with progressive right shoulder pain. After treatment options were discussed, he elected to proceed with arthroscopy. Operative Findings: See description of procedure Description of Procedure: Patient underwent an interscalene block by department of anesthesia. The patient was then taken to the operative suite. The patient underwent a general anesthetic by the department of anesthesia. The patient was placed into a lateral position and secured. There was appropriate padding of the bony p rominence. Right shoulder was then prepped and draped in normal sterile orthopedic fashion. We placed the extremity in 10 pounds of longitudinal traction. A posterior incision was now made for a posterior working portal site. The trocar and cannula were inserted into the glenohumeral joint. Arthroscopy was initiated. Spinal needle was now inserted anteriorly, to ascertain the anterior working portal site. An incision was now made in that area, a trocar was inserted followed by a probe. There was partial tearing long head biceps tendon. There was superficial tearing of the superior labrum. There were mild grade 1 chondromalacia changes of glenohumeral joint, no osteochondral tears were present. I performed arthroscopic biceps tenotomy. I debrided the superficial labral tear. The residual labrum was probed and found to be stable. Instruments were now removed from the glenohumeral joint. Utilizing the posterior working portal site, the trocar and cannula were inserted into the subacromial space. Arthroscopy initiated. I made an incision 2 fingerbreadths lateral to the acromion. I introduced my trocar followed by my ArthroCare ablator. I now began ablating thick subacromial bursal tissue, which exposed the undersurface of the anterior acromion. There was diminished subacromial space. There was a very prominent anterior acromion. A motorized bur was introduced and a subacromial decompression was performed. I also excised some osteophytes off the inferior aspect of the distal clavicle. The AC joint was visualized and noted to be fairly arthritic. The motorized bur was introduced in the anterior portal site and a Scotty procedure was performed without difficulty, decompressing the AC joint nicely. I turned my attention to the rotator cuff. There was a 1.5 cm rotator cuff tear. I debrided the margins getting down to stable tendon tissue. I abraded the footprint with a motorized bur. I passed 3 everted mattress sutures through good bites of rotator cuff tendon. I punched hole in the footprint area for insertion of an anchor. All 6 limbs of suture were now passed through the eyelet of a 5.5 Arthrex swivel lock anchor. The eyelet was now placed into the pre-punch hole, Román DAILEY tensioned all of the sutures and deployed the anchor with good fixation noted. All residual suture limbs were now clipped. We had good compression of the tendon along the entire footprint. I injected 1 mL Renyte intra-articular. Instruments now removed from the portal sites. All portal sites were approximated with nylon suture. Sterile dressings were applied followed by a shoulder sling. Damian DAILEY assisted in this complex case. The patient was awakened, transferred to a bed, and taken to recovery in stable condition.
[2020-04-27 10:08] VITALS: TEMP 96.8
[2020-04-27 11:04] VITALS: RESP 16
[2020-04-27 11:15] VITALS: BP 123/75; PULSE 89
== END | disposition home or self-care (01) ==
LOC: OR 06:50
PROVIDERS: ATTEND Orthopaedic Surgery
DX: M75.101 Unspecified rotator cuff tear or rupture of right shoulder, not specified as traumatic (principal); M75.41 Impingement syndrome of right shoulder; M19.011 Primary osteoarthritis, right shoulder; S46.111A Strain of muscle, fascia and tendon of long head of biceps, right arm, initial encounter; S43.431A Superior glenoid labrum lesion of right shoulder, initial encounter; X58.XXXA Exposure to other specified factors, initial encounter; M25.711 Osteophyte, right shoulder; I10 Essential (primary) hypertension; E78.5 Hyperlipidemia, unspecified; F41.9 Anxiety disorder, unspecified; J45.909 Unspecified asthma, uncomplicated; K21.9 Gastro-esophageal reflux disease without esophagitis; Z79.899 Other long term (current) drug therapy
CPT/HCPCS: 29826; 29827; 29824; 64415; 76942; C1713; Q4212; J2250; J0330; J1100 ×2; J0690; J2405; J2001; J3010; J2795; J2704

== ENCOUNTER 2021-01-05 00:02 | Emergency (ER) | payer MEDICAID ==
--- NOTE | 2021-01-05 01:45 | XR ---
EXAM: XR Chest, 1 View CLINICAL HISTORY: ITS.REASON XR Reason: Cough; wheezing TECHNIQUE: Frontal view of the chest. COMPARISON: No relevant prior studies available. FINDINGS: Lungs: Mild interstitial prominence and peribronchial thickening. No consolidation. Pleural space: No significant pleural effusion or pneumothorax. Heart: Unremarkable. Mediastinum: Unremarkable. Bones/joints: No acute fracture. IMPRESSION: Mild interstitial prominence and peribronchial thickening. No consolidation.
[2021-01-05] MEDS ORDERED: methylPREDNISolone SOD SUCCI 125 MG/2 ML VIAL IM ONE (01:49)
--- NOTE | 2021-01-05 01:50 | ED ---
URI HPI - General Chief Complaint: Upper Respiratory Infection Stated Complaint: MICHEAL Time Seen by Provider: 01/05/21 00:23 Source: patient Mode of arrival: ambulatory Limitations: no limitations - History of Present Illness Initial Comments: 55 year-old male patient with past medical history significant for asthma, presents to the emergency department today for evaluation of cough and congestion. He should states he's been having increased wheezing and cough today. States he felt a rumbling in his chest with breathing. States he did use his inhaler 4 times today. He does see Dr. Pisano for pulmonology. Does not take any oral or maintenance medication for asthma. He denies any chest pain or tightness with this. Denies fever or chills. Denies ever having to be admitted for asthma in the past. Patient denies any recent rash, abdominal pain, nausea, vomiting, diarrhea, constipation, back pain, numbness, tingling, dizziness, weakness, hematuria, dysuria, urinary urgency, urinary frequency, headache, visual changes, or any other complaints. - Related Data Home Medications Medication Instructions Recorded Confirmed Citalopram Hydrobromide [CeleXA] 40 mg PO HS 08/22/16 04/25/20 Omeprazole 40 mg PO DAILY PRN 08/22/16 04/25/20 buPROPion HCL [Wellbutrin Sr] 100 mg PO HS 03/28/17 04/25/20 Hydrocortisone Suppository 25 mg RECTAL DAILY 04/25/20 04/25/20 [Anusol-Hc] Losartan [Cozaar] 50 mg PO BID 04/25/20 04/25/20 Simvastatin [Zocor] 20 mg PO DAILY 04/25/20 04/25/20 Wheat Dextrin [Benefiber] 1 dose PO DAILY 04/25/20 04/25/20 amLODIPine BESYLATE [Norvasc] 2.5 mg PO DAILY 04/25/20 04/25/20 Previous Rx's Medication Instructions Recorded HYDROcodone/APAP 7.5-325MG [Angwin 1 each PO Q6HR PRN #28 tab 04/27/20 7.5] Albuterol Sulfate [Proventil Hfa] 2 puff INHALATION Q4-6H PRN #1 01/05/21 inhaler methylPREDNISolone [Medrol Dose 4 mg PO DIRECTED #1 pack 01/05/21 Pack] Allergies Allergy/AdvReac Type Severity Reaction Status Date / Time No Known Allergies Allergy Verified 01/05/21 00:21 Review of Systems ROS Statement: Those systems with pertinent positive or pertinent negative responses have been documented in the HPI. ROS Other: All systems not noted in ROS Statement are negative. Past Medical History Past Medical History: Asthma, GERD/Reflux, Hypertension Additional Past Medical History / Comment(s): intermittent freq loose stools with constipation,occasional bleeding hemorrhoids, sciatic nerve pain,.DDD (cervical), Pain right shoulder. History of Any Multi-Drug Resistant Organisms: None Reported Past Surgical History: Tonsillectomy Additional Past Surgical History / Comment(s): growth removed from scrotum at age 13, needle removed rt foot, colonoscopy. Past Anesthesia/Blood Transfusion Reactions: No Reported Reaction Additional Past Anesthesia/Blood Transfusion Reaction / Comment(s): . Past Psychological History: Anxiety, Depression Smoking Status: Former smoker Past Alcohol Use History: Occasional Past Drug Use History: None Reported - Past Family History Father Family Medical History: Congestive Heart Failure (CHF), CVA/TIA, Diabetes Mellitus, Renal Disease Mother Family Medical History: No Reported History General Exam Limitations: no limitations General appearance: alert, in no apparent distress, other (This is a well- developed, well-nourished adult male patient in no acute distress.) Eye exam: Present: normal appearance, PERRL, EOMI. Absent: scleral icterus, conjunctival injection, periorbital swelling ENT exam: Present: normal exam, normal oropharynx, mucous membranes moist Respiratory exam: Present: normal lung sounds bilaterally, wheezes (Right posterior lung davalos). Absent: respiratory distress, rales, rhonchi, stridor Cardiovascular Exam: Present: normal rhythm, tachycardia, normal heart sounds. Absent: systolic murmur, diastolic murmur, rubs, gallop, clicks GI/Abdominal exam: Present: soft, normal bowel sounds. Absent: distended, tenderness, guarding, rebound, rigid Neurological exam: Present: alert, oriented X3, CN II-XII intact Psychiatric exam: Present: normal affect, normal mood Skin exam: Present: warm, dry, intact, normal color. Absent: rash Course Vital Signs 01/05/21 01/05/21 00:16 02:00 Temperature 98.3 F 98.0 F Pulse Rate 105 H 97 Respiratory 22 16 Rate Blood Pressure 106/72 112/68 O2 Sat by Pulse 95 97 Oximetry Medical Decision Making - Medical Decision Making 55 year-old male patient presented for evaluation of cough and wheezing. Physical examination revealed coarse expiratory wheezing a left posterior lung field. Chest x-ray was unremarkable showed some bronchial thickening consistent with asthma. He did test negative for COVID-19. Patient will be given steroids instructed to continue using his inhaler. Instructed to follow-up with his financial aid manager, he will call in the morning. Return parameters were discussed in detail. He verbalizes understanding and agrees with this plan. My attending is Dr. Roblero. - Lab Data Lab Results 01/05/21 Range/Units 00:52 Coronavirus (PCR) Not Detected (Not Detectd) - Radiology Data Radiology results: report reviewed, image reviewed Mild interstitial prominence and peribronchial thickening. No consolidation. Disposition Clinical Impression: Wheezing, Cough Disposition: HOME SELF-CARE Condition: Good Instructions (If sedation given, give patient instructions): Asthma (ED) Additional Instructions: Take medications as directed. Follow-up with her financial aid manager for further evaluation as soon as possible. Return for any new, worsening, or concerning symptoms. Prescriptions: methylPREDNISolone [Medrol Dose Pack] 4 mg PO DIRECTED #1 pack Albuterol Sulfate [Proventil Hfa] 2 puff INHALATION Q4-6H PRN #1 inhaler PRN Reason: Wheezing Is patient prescribed a controlled substance at d/c from ED?: No Referrals: Zara Pisano MD [Primary Care Provider] - 1-2 days Time of Disposition: 01:50
[2021-01-05 02:10] VITALS: BP 112/68; PULSE 97; RESP 16; TEMP 98
== END 2021-01-05 02:00 | disposition home or self-care (01) ==
LOC: EC 00:02
DX: R06.2 Wheezing (principal); R05 Cough; K21.9 Gastro-esophageal reflux disease without esophagitis; J45.909 Unspecified asthma, uncomplicated; I10 Essential (primary) hypertension; Z87.891 Personal history of nicotine dependence; Z79.899 Other long term (current) drug therapy; Z20.822 Contact with and (suspected) exposure to COVID-19
CPT/HCPCS: 99285; 87635; 71045; J2930

== ENCOUNTER → 2021-01-23 | Outpatient (CLI) | payer MEDICAID ==
[2021-01-23 09:25] LABS: Appearance,Urine Clear (Clear); Color,Urine Yellow; PH, Urine 5.5 (5.0-8.0); Protein,Urine Trace (Negative)
[2021-01-23 09:26] LABS: Bilirubin,Urine Negative (Negative); Blood,Urine Negative (Negative); Glucose,Urine (UA) Negative (Negative); Ketones,Urine Negative (Negative); Leukocyte Esterase,Urine Negative (Negative); Nitrite,Urine Negative (Negative); Urobilinogen,Urine <2.0 mg/dL (<2.0)
[2021-01-23 09:45] LABS: Specific Gravity,Urine >1.030 (1.001-1.035)
[2021-01-23 11:21] LABS: Basophils # (A) 0.03 X 10*3/uL (0.00-0.10); Basophils % (A) 0.6 %; Eosinophils # (A) 0.27 X 10*3/uL (0.04-0.35); Eosinophils % (A) 5.7 %; HGB 13.5 g/dL (13.0-17.0); Lymphocytes # (A) 0.82 X 10*3/uL (0.90-5.00); Lymphocytes % (A) 17.3 %; MCH 28.1 pg (27.0-32.0); MCHC 32.1 g/dL (32.0-37.0); MCV 87.3 fL (80.0-97.0); Mean Platelet Volume 11.3 fL (9.5-12.2); Monocytes # (A) 0.43 X 10*3/uL (0.20-1.00); Monocytes % (A) 9.1 %; Neutrophils # (A) 3.19 X 10*3/uL (1.80-7.70); Neutrophils % (A) 67.1 %; Platelet Count 210 X 10*3/uL (140-440); RBC 4.81 X 10*6/uL (4.40-5.60); RDW 13.5 % (11.5-14.5); WBC 4.75 X 10*3/uL (4.50-10.00)
[2021-01-23 14:25] LABS: Hemoglobin A1C 6.1 % (4.0-6.0)
[2021-01-23 14:59] LABS: African American GFR (CKD) 110.3 (60.0-200.0); Albumin 4.1 g/dL (3.80-4.90); Albumin/Globulin Ratio 1.95 (1.60-3.17); Anion Gap 8.2 mmol/L (4.00-12.00); BUN/Creat Ratio 18.89 Ratio (12.00-20.00); Calcium 8.7 mg/dL (8.7-10.3); Carbon Dioxide 28.8 mmol/L (21.6-31.8); Chol/HDL Ratio 4.67; Globulin 2.1 g/dL (1.6-3.3); LDL Cholesterol,Calculated 96.6 mg/dL (0.0-131.0); Non-African American GFR(CKD) 95.1 (60.0-200.0); Potassium 4.3 mmol/L (3.5-5.5); Total Bilirubin 0.7 mg/dL (0.3-1.2); Total Protein 6.2 g/dL (6.2-8.2); VLDL Calculation 13.4 mg/dL (5.00-40.00)
[2021-01-23 15:06] LABS: T4, Free (Free Thyroxine) 0.9 ng/dL (0.80-1.80)
[2021-01-23 15:09] LABS: Prostate Specific Antigen 0.4 ng/mL (0.0-3.5)
== END | disposition home or self-care (01) ==
LOC: LABWHC1 08:27
PROVIDERS: ATTEND Internal Medicine
DX: Z00.00 Encounter for general adult medical examination without abnormal findings (principal); I10 Essential (primary) hypertension; E78.5 Hyperlipidemia, unspecified
CPT/HCPCS: 36415; 80053; 80061; 81003; 83036; 84153; 84439; 84443; 85025; 87086

== ENCOUNTER → 2022-06-27 | Outpatient (CLI) | payer MEDICAID ==
[2022-06-27 11:23] LABS: Basophils # (A) 0.02 X 10*3/uL (0.00-0.10); Basophils % (A) 0.4 %; Eosinophils # (A) 0.25 X 10*3/uL (0.04-0.35); Eosinophils % (A) 4.9 %; HCT 41.2 % (39.6-50.0); HGB 13.3 g/dL (13.0-17.0); Immature Grans, Automated 0.2 %; Lymphocytes # (A) 0.97 X 10*3/uL (0.90-5.00); Lymphocytes % (A) 18.9 %; MCH 28.4 pg (27.0-32.0); MCHC 32.3 g/dL (32.0-37.0); Mean Platelet Volume 10.9 fL (9.5-12.2); Monocytes # (A) 0.45 X 10*3/uL (0.20-1.00); Monocytes % (A) 8.8 %; NRBC Per 100 WBC 0 /100 WBCS (0.0-0.0); Neutrophils # (A) 3.43 X 10*3/uL (1.80-7.70); Neutrophils % (A) 66.8 %; Platelet Count 256 X 10*3/uL (140-440); RBC 4.68 X 10*6/uL (4.40-5.60); RDW 13.2 % (11.5-14.5); WBC 5.13 X 10*3/uL (4.50-10.00)
[2022-06-27 11:51] LABS: ALT 31 U/L (10-49); AST 17 U/L (14-35); African American GFR (CKD) 99.7 (60.0-200.0); Albumin 4.4 g/dL (3.8-4.9); Albumin/Globulin Ratio 2.12 (1.60-3.17); Alkaline Phosphatase 77 U/L (41-126); Blood Urea Nitrogen 14.7 mg/dL (9.0-27.0); Calcium 9.2 mg/dL (8.7-10.3); Carbon Dioxide 28.6 mmol/L (20.0-27.5); Chloride 104 mmol/L (96-109); Chol/HDL Ratio 3.92 Ratio; Globulin 2.1 g/dL (1.6-3.3); Glucose 100 mg/dL (70-110); LDL Cholesterol,Calculated 100.1 mg/dL (0.0-131.0); Potassium 4.1 mmol/L (3.5-5.5); Sodium 141 mmol/L (135-145); Total Protein 6.4 g/dL (6.2-8.2); VLDL Calculation 13.94 mg/dL (5.00-40.00)
[2022-06-27 12:08] LABS: Erythrocyte Sedimentation Rate 15 mm/Hr (0-20)
== END | disposition home or self-care (01) ==
LOC: LABWHC1 08:17
PROVIDERS: ATTEND Internal Medicine
DX: Z00.00 Encounter for general adult medical examination without abnormal findings (principal); E78.5 Hyperlipidemia, unspecified; I10 Essential (primary) hypertension
CPT/HCPCS: 36415; 80053; 80061; 83036; 84153; 84439; 84443; 85025; 85652

== ENCOUNTER 2022-09-04 18:21 | Observation (INO) | payer MEDICAID ==
[2022-09-04] MEDS ORDERED: ASPIRIN 81 MG PO STA (19:04)
[2022-09-04] MEDS ORDERED: NITROGLYCERIN OINT 1 INCH/GM PACKET TOPICAL STA (19:04)
--- NOTE | 2022-09-04 19:06 | ED ---
General Adult HPI - General Chief complaint: Chest Pain Stated complaint: chest pain Time Seen by Provider: 09/04/22 18:46 Source: patient, RN notes reviewed Mode of arrival: ambulatory Limitations: no limitations - History of Present Illness Initial comments: Patient is a pleasant 57-year-old male presenting to the emergency department with concerns with chest discomfort. Onset of symptoms was a couple hours prior to arrival. Discomfort feels like pressure. There is minimal nausea. No diaphoresis. No dyspnea. Symptoms are near resolved at this time. Patient did have a similar episode 2 days ago. Otherwise no history prior to that. No leg pain or leg swelling. No cough or fever - Related Data Home Medications Medication Instructions Recorded Confirmed Citalopram Hydrobromide [CeleXA] 40 mg PO DAILY@1600 08/22/16 09/04/22 Omeprazole 40 mg PO DAILY 08/22/16 09/04/22 buPROPion HCL [Wellbutrin Sr] 100 mg PO DAILY@1600 03/28/17 09/04/22 Losartan [Cozaar] 50 mg PO BID 04/25/20 09/04/22 Simvastatin [Zocor] 20 mg PO DAILY 04/25/20 09/04/22 amLODIPine BESYLATE [Norvasc] 2.5 mg PO DAILY 04/25/20 09/04/22 Albuterol Sulfate [Proventil Hfa] 2 puff INHALATION RT-QID PRN 09/04/22 09/04/22 Cbd Gummies (Unknown Strength) 1 dose PO HS 09/04/22 09/04/22 Elderberry Fruit and Flower [Black 1 cap PO DAILY 09/04/22 09/04/22 Elderberry 575 mg Cap] Fluticasone Propion/Salmeterol 1 puff INHALATION RT-BID 09/04/22 09/04/22 [Advair 250-50 Diskus] Allergies Allergy/AdvReac Type Severity Reaction Status Date / Time No Known Allergies Allergy Verified 09/04/22 20:18 Review of Systems ROS Statement: Those systems with pertinent positive or pertinent negative responses have been documented in the HPI. ROS Other: All systems not noted in ROS Statement are negative. Constitutional: Denies: fever Eyes: Denies: eye pain ENT: Denies: ear pain Respiratory: Denies: cough, dyspnea Cardiovascular: Reports: as per HPI, chest pain Endocrine: Denies: fatigue Gastrointestinal: Denies: abdominal pain Genitourinary: Denies: dysuria Past Medical History Past Medical History: Asthma, GERD/Reflux, Hypertension Additional Past Medical History / Comment(s): intermittent freq loose stools with constipation,occasional bleeding hemorrhoids, sciatic nerve pain,.DDD (cervical), Pain right shoulder. History of Any Multi-Drug Resistant Organisms: None Reported Past Surgical History: Tonsillectomy Additional Past Surgical History / Comment(s): growth removed from scrotum at age 13, needle removed rt foot, colonoscopy. Past Anesthesia/Blood Transfusion Reactions: No Reported Reaction Additional Past Anesthesia/Blood Transfusion Reaction / Comment(s): . Past Psychological History: Anxiety, Depression Smoking Status: Former smoker Past Alcohol Use History: Occasional Past Drug Use History: None Reported - Past Family History Father Family Medical History: Congestive Heart Failure (CHF), CVA/TIA, Diabetes Mellitus, Renal Disease Mother Family Medical History: No Reported History General Exam Limitations: no limitations General appearance: alert, in no apparent distress Head exam: Present: atraumatic, normocephalic Eye exam: Present: normal appearance Neck exam: Present: normal inspection Respiratory exam: Present: normal lung sounds bilaterally. Absent: chest wall tenderness Cardiovascular Exam: Present: regular rate, normal rhythm Expanded Peripheral pulses: 2+: Radial (R), Radial (L), Dorsalis Pedis (R), Dorsalis Pedis (L) GI/Abdominal exam: Present: soft. Absent: tenderness Extremities exam: Present: normal inspection. Absent: pedal edema, calf tenderness Neurological exam: Present: alert Psychiatric exam: Present: normal affect, normal mood Skin exam: Present: normal color Course Vital Signs 09/04/22 09/04/22 09/04/22 18:30 19:34 20:54 Temperature 98 F Pulse Rate 86 70 70 Pulse Rate [ 70 Apical] Respiratory 16 12 12 Rate Blood Pressure 113/74 136/87 131/83 O2 Sat by Pulse 97 98 98 Oximetry EKG Findings - EKG Results: EKG: interpreted by RAUL, sinus rhythm, normal axis, normal QRS, normal ST/T Medical Decision Making - Medical Decision Making Was pt. sent in by a medical professional or institution (, PA, FIBER GLASS WORKER, urgent care, hospital, or half-way...) When possible be specific @ -No Did you speak to anyone other than the patient for history (EMS, parent, family, police, friend...)? What history was obtained from this source @ - is present and helps provide history Did you review nursing and triage notes (agree or disagree)? Why? @ -I reviewed and agree with nursing and triage notes Were old charts reviewed (outside hosp., previous admission, EMS record, old EKG, old radiological studies, urgent care reports/EKG's, half-way records)? Report findings @ -No old charts were reviewed Differential Diagnosis (chest pain, altered mental status, abdominal pain women, abdominal pain men, vaginal bleeding, weakness, fever, dyspnea, syncope, headach e, dizziness, GI bleed, back pain, seizure, CVA, palpatations, mental health)? @ -Differential Chest Pain: Stable Angina, Unstable Angina, STEMI, NSTEMI Aortic Dissection, Pneumothorax, Musculoskeletal, Esophageal Spasm GERD, Cholecystitis, Pancreatitis, Zoster, this is not meant to be an all-inclusive list. EKG interpreted by me (3pts min.). @ -As above X-rays interpreted by me (1pt min.). @ -Chest x-ray shows no acute process CT interpreted by me (1pt min.). @ -None done U/S interpreted by me (1pt. min.). @ -None done What testing was considered but not performed or refused? (CT, X-rays, U/S, labs)? Why? @ -None What meds were considered but not given or refused? Why? @ -None Did you discuss the management of the patient with other professionals (professionals i.e. , PA, FIBER GLASS WORKER, lab, RT, psych nurse, social media analyst, concrete mixer operator, teacher, parole hearing officer, counseling case manager)? Give summary @ -Case was discussed with Dr. Mcleod, who will admit covering hospital call Was smoking cessation discussed for >3mins.? @ -No Was critical care preformed (if so, how long)? @ -No Were there social determinants of health that impacted care today? How? (Homelessness, low income, unemployed, alcoholism, drug addiction, transportation, low edu. Level, literacy, decrease access to med. care, group home, rehab)? @ -No Was there de-escalation of care discussed even if they declined (Discuss DNR or withdrawal of care, Hospice)? DNR status @ -No What co-morbidities impacted this encounter? (DM, HTN, Smoking, COPD, CAD, Cancer, CVA, ARF, Chemo, Hep., AIDS, mental health diagnosis, sleep apnea, morbid obesity)? @ -None Was patient admitted / discharged? Hospital course, mention meds given and route, prescriptions, significant lab abnormalities, going to OR and other pertinent info. @ -Patient reevaluated without significant change. Patient and family updated on results and plan. Patient be admitted. Admission orders written. Undiagnosed new problem with uncertain prognosis? @ -No Drug Therapy requiring intensive monitoring for toxicity (Heparin, Nitro, Insulin, Cardizem)? @ -No Were any procedures done? @ -No Diagnosis/symptom? @ -Chest pain Acute, or Chronic, or Acute on Chronic? @ -Acute Uncomplicated (without systemic symptoms) or Complicated (systemic symptoms)? @ -default Side effects of treatment? @ -No Exacerbation, Progression, or Severe Exacerbation? @ -No Poses a threat to life or bodily function? How? (Chest pain, [place], [place], pneumonia, PE, COPD, DKA, ARF, appy, cholecystitis, CVA, Diverticulitis, Homicidal, Suicidal, threat to staff... and all critical care pts) @ -Potential threat of chest pain cause is cardiac - Lab Data Result diagrams: 09/04/22 19:13 09/04/22 19:13 Lab Results 09/04/22 09/04/22 09/04/22 Range/Units 19:13 19:13 19:13 WBC 7.0 (3.8-10.6) k/uL RBC 4.90 (4.30-5.90) m/uL Hgb 13.7 (13.0-17.5) gm/dL Hct 41.9 (39.0-53.0) % MCV 85.6 (80.0-100.0) fL MCH 27.9 (25.0-35.0) pg MCHC 32.7 (31.0-37.0) g/dL RDW 13.6 (11.5-15.5) % Plt Count 209 (150-450) k/uL MPV 8.3 Neutrophils % 73 % Lymphocytes % 13 % Monocytes % 7 % Eosinophils % 4 % Basophils % 1 % Neutrophils # 5.1 (1.3-7.7) k/uL Lymphocytes # 0.9 L (1.0-4.8) k/uL Monocytes # 0.5 (0-1.0) k/uL Eosinophils # 0.3 (0-0.7) k/uL Basophils # 0.0 (0-0.2) k/uL PT 10.3 (9.0-12.0) sec INR 1.0 (<1.2) APTT 25.1 (22.0-30.0) sec D-Dimer 0.27 (<0.60) mg/L FEU Sodium 139 (137-145) mmol/L Potassium 4.1 (3.5-5.1) mmol/L Chloride 105 (98-107) mmol/L Carbon Dioxide 25 (22-30) mmol/L Anion Gap 9 mmol/L BUN 22 H (9-20) mg/dL Creatinine 0.89 (0.66-1.25) mg/dL Est GFR (CKD-EPI)AfAm >90 (>60 ml/min/1.73 sqM) Est GFR (CKD-EPI)NonAf >90 (>60 ml/min/1.73 sqM) Glucose 94 (74-99) mg/dL Calcium 9.0 (8.4-10.2) mg/dL Magnesium 1.9 (1.6-2.3) mg/dL Total Bilirubin 0.4 (0.2-1.3) mg/dL AST 26 (17-59) U/L ALT 26 (4-49) U/L Alkaline Phosphatase 73 (38-126) U/L Troponin I (0.000-0.034) ng/mL Total Protein 6.7 (6.3-8.2) g/dL Albumin 4.2 (3.5-5.0) g/dL Amylase 49 (30-110) U/L Lipase 83 (23-300) U/L 09/04/22 Range/Units 19:13 WBC (3.8-10.6) k/uL RBC (4.30-5.90) m/uL Hgb (13.0-17.5) gm/dL Hct (39.0-53.0) % MCV (80.0-100.0) fL MCH (25.0-35.0) pg MCHC (31.0-37.0) g/dL RDW (11.5-15.5) % Plt Count (150-450) k/uL MPV Neutrophils % % Lymphocytes % % Monocytes % % Eosinophils % % Basophils % % Neutrophils # (1.3-7.7) k/uL Lymphocytes # (1.0-4.8) k/uL Monocytes # (0-1.0) k/uL Eosinophils # (0-0.7) k/uL Basophils # (0-0.2) k/uL PT (9.0-12.0) sec INR (<1.2) APTT (22.0-30.0) sec D-Dimer (<0.60) mg/L FEU Sodium (137-145) mmol/L Potassium (3.5-5.1) mmol/L Chloride (98-107) mmol/L Carbon Dioxide (22-30) mmol/L Anion Gap mmol/L BUN (9-20) mg/dL Creatinine (0.66-1.25) mg/dL Est GFR (CKD-EPI)AfAm (>60 ml/min/1.73 sqM) Est GFR (CKD-EPI)NonAf (>60 ml/min/1.73 sqM) Glucose (74-99) mg/dL Calcium (8.4-10.2) mg/dL Magnesium (1.6-2.3) mg/dL Total Bilirubin (0.2-1.3) mg/dL AST (17-59) U/L ALT (4-49) U/L Alkaline Phosphatase (38-126) U/L Troponin I <0.012 (0.000-0.034) ng/mL Total Protein (6.3-8.2) g/dL Albumin (3.5-5.0) g/dL Amylase (30-110) U/L Lipase (23-300) U/L Disposition Clinical Impression: Chest pain Disposition: ADMITTED IP TO THIS HOSP Is patient prescribed a controlled substance at d/c from ED?: No Referrals: Zara Pisano MD [Primary Care Provider] - 1-2 days Time of Disposition: 21:37
--- NOTE | 2022-09-04 19:32 | XR ---
EXAMINATION TYPE: XR chest 2V DATE OF EXAM: 09/04/2022 7:17 PM COMPARISON: Chest radiographs from 01/05/2021 TECHNIQUE: XR chest 2V Frontal and lateral views of the chest. CLINICAL INDICATION:Male, 57 years old with history of Chest Pain; FINDINGS: Lungs/Pleura: There is no evidence of pleural effusion, focal consolidation, or pneumothorax. Pulmonary vascularity: Unremarkable. Heart/mediastinum: Cardiomediastinal silhouette is unremarkable. Musculoskeletal: No acute osseous pathology. IMPRESSION: No acute cardiopulmonary disease/process.
[2022-09-04 20:21] LABS: Basophils % (A) 1 %; Eosinophils # (A) 0.3 k/uL (0-0.7); Eosinophils % (A) 4 %; HCT 41.9 % (39.0-53.0); HGB 13.7 gm/dL (13.0-17.5); Lymphocytes # (A) 0.9 k/uL (1.0-4.8); Lymphocytes % (A) 13 %; MCH 27.9 pg (25.0-35.0); MCHC 32.7 g/dL (31.0-37.0); MCV 85.6 fL (80.0-100.0); Mean Platelet Volume 8.3; Monocytes # (A) 0.5 k/uL (0-1.0); Monocytes % (A) 7 %; Neutrophils # (A) 5.1 k/uL (1.3-7.7); Neutrophils % (A) 73 %; Platelet Count 209 k/uL (150-450); RDW 13.6 % (11.5-15.5)
[2022-09-04 20:34] LABS: Partial Thromboplastin Time 25.1 sec (22.0-30.0); Prothrombin Time 10.3 sec (9.0-12.0)
[2022-09-04 20:37] LABS: ALT 26 U/L (4-49); AST 26 U/L (17-59); African American GFR (CKD) >90 (>60 ml/min/1.73 sqM); Albumin 4.2 g/dL (3.5-5.0); Alkaline Phosphatase 73 U/L (38-126); Amylase 49 U/L (30-110); Anion Gap 9 mmol/L; Blood Urea Nitrogen 22 mg/dL (9-20); Carbon Dioxide 25 mmol/L (22-30); Chloride 105 mmol/L (98-107); Glucose 94 mg/dL (74-99); Lipase 83 U/L (23-300); Magnesium 1.9 mg/dL (1.6-2.3); Non-African American GFR(CKD) >90 (>60 ml/min/1.73 sqM); Potassium 4.1 mmol/L (3.5-5.1); Sodium 139 mmol/L (137-145); Total Bilirubin 0.4 mg/dL (0.2-1.3); Total Protein 6.7 g/dL (6.3-8.2)
[2022-09-04] MEDS ORDERED: MAG HYDROX/AL HYDROX/SIMETH 30 ML, HYOSCYAMINE ELIXIR 10 ML, LIDOCAINE VISCOUS 2% 10 ML PO STA ×3 (20:43)
[2022-09-04] MEDS ORDERED: MORPHINE SULFATE 4 MG/ML SYRINGE IVP STA (21:37)
[2022-09-04] MEDS ORDERED: NITROGLYCERIN SL TABS 0.4 MG TAB SUBLINGUAL PRN (21:38)
[2022-09-04] MEDS ORDERED: ALBUTEROL NEBULIZED 2.5 MG/3 ML INHALATION PRN (21:38)
[2022-09-04] MEDS: NITROGLYCERIN OINT 1 INCH/GM PACKET TOPICAL SCH (22:57)
[2022-09-04] MEDS ORDERED: ZOLPIDEM 5 MG TAB PO PRN (23:42)
--- NOTE | 2022-09-05 00:54 | P.HPIM ---
History of Present Illness H&P Date: 09/04/22 Chief Complaint: chest pain 57 year old male with hyperlipidemia , hypertension patient coming in after experiencing chest pain , that started suddenly while resting doing nothing, he experienced retrosternal chest pain 6/10 in severity , felt pressure like , no associated palpitations, dizziness, nausea or vomiting, no SOB, or profuse sweating, he took some GERD meds with not much benefits. for which he decided to come in for evaluation , especially as this is his second episode, as he felt similr pain the night before. otherwise , normally he is able to workout doing 30 min of cardio with no limitations. he reports family history of stroke in his father at young age. he has had stress test done 10 years ago and was unremarkable otherwise he denies any cardiac history he denies any fever, chills, cough, abd pain , changes in bowel or urinary habits patient chest pain finally improved with nitro paste in the ED he denies any recent hospital stay , but had recent travel back from [place] earlier this month blood work in the ed overall unremarkable , EKG no acute ST changes CXR no acute pathology , trops negative , d dimer negative he denies any tobacco smoking, illicit drugs or alcohol abuse Review of Systems Pertinent positives as noted in HPI. All other systems were reviewed and are negative Past Medical History Past Medical History: Asthma, GERD/Reflux, Hypertension Additional Past Medical History / Comment(s): intermittent freq loose stools with constipation,occasional bleeding hemorrhoids, sciatic nerve pain,.DDD (cervical), Pain right shoulder. History of Any Multi-Drug Resistant Organisms: None Reported Past Surgical History: Tonsillectomy Additional Past Surgical History / Comment(s): growth removed from scrotum at age 13, needle removed rt foot, colonoscopy. Past Anesthesia/Blood Transfusion Reactions: No Reported Reaction Additional Past Anesthesia/Blood Transfusion Reaction / Comment(s): . Past Psychological History: Anxiety, Depression Smoking Status: Former smoker Past Alcohol Use History: Occasional Past Drug Use History: None Reported - Past Family History Father Family Medical History: Congestive Heart Failure (CHF), CVA/TIA, Diabetes Mellitus, Renal Disease Mother Family Medical History: No Reported History Medications and Allergies Home Medications Medication Instructions Recorded Confirmed Type Citalopram Hydrobromide [CeleXA] 40 mg PO DAILY@1600 08/22/16 09/04/22 History Omeprazole 40 mg PO DAILY 08/22/16 09/04/22 History buPROPion HCL [Wellbutrin Sr] 100 mg PO DAILY@1600 03/28/17 09/04/22 History Losartan [Cozaar] 50 mg PO BID 04/25/20 09/04/22 History Simvastatin [Zocor] 20 mg PO DAILY 04/25/20 09/04/22 History amLODIPine BESYLATE [Norvasc] 2.5 mg PO DAILY 04/25/20 09/04/22 History Albuterol Sulfate [Proventil Hfa] 2 puff INHALATION RT-QID PRN 09/04/22 09/04/22 History Cbd Gummies (Unknown Strength) 1 dose PO HS 09/04/22 09/04/22 History Elderberry Fruit and Flower [Black 1 cap PO DAILY 09/04/22 09/04/22 History Elderberry 575 mg Cap] Fluticasone Propion/Salmeterol 1 puff INHALATION RT-BID 09/04/22 09/04/22 History [Advair 250-50 Diskus] Allergies Allergy/AdvReac Type Severity Reaction Status Date / Time No Known Allergies Allergy Verified 09/04/22 20:18 Physical Exam Vitals: Vital Signs Temp Pulse Pulse Resp BP Pulse Ox 09/04/22 20:54 70 12 131/83 98 09/04/22 19:34 70 70 12 136/87 98 09/04/22 18:30 98 F 86 16 113/74 97 Intake and Output 09/04/22 09/04/22 09/04/22 06:59 14:59 22:59 Other: Weight 113.398 kg Constitutional: No acute distress, conversant, pleasant Eyes: Anicteric sclerae, moist conjunctiva, Pupils equal round reactive to light ENMT: NC/AT Oropharynx clear, no erythema, or exudates Neck: Supple, no masses, or JVD No carotid bruits No thyromegaly Lungs: Clear to auscultation Clear to percussion Normal respiratory effort, no accessory muscle use Cardiovascular: Heart regular in rate and rhythm, No murmurs, gallops, or rubs No peripheral edema Abdominal: Soft Nontender, no guarding, rebound or rigidity Abdomen moving with respiration Normoactive bowel sounds No hepatomegaly, No splenomegaly No palpable mass No abdominal wall hernia noted Skin: Normal temperature, tone, texture, turgor No induration No subcutaneous nodules No rash, lesions No ulcers Extremities: No digital cyanosis No clubbing Pedal pulses intact and symmetrical Radial pulses intact and symmetrical No calf tenderness Psychiatric: Alert and oriented to person, place and time Appropriate affect fair judgement Neuro Muscles Strength 5/5 in all 4 extremities Sensation to light touch grossly present throughout Cranial nerves II-XII grossly intact Lymphatics: no palpable cervical or supraclavicular lymph nodes Results CBC & Chem 7: 09/04/22 19:13 09/04/22 19:13 Labs: Abnormal Lab Results - Last 24 Hours (Table) 09/04/22 09/04/22 Range/Units 19:13 19:13 Lymphocytes # 0.9 L (1.0-4.8) k/uL BUN 22 H (9-20) mg/dL Assessment and Plan Assessment: chest pain rule outACS hypertension hyperlipidemia trend trops EKG no acute st changes monitor vital signs supervisor production managing cardiology consult lipid panel ASA, statin chronic conditions asthma , resume inhalers PRN full code DVT PPX heparin sc tid
[2022-09-05] MEDS: NITROGLYCERIN OINT 1 INCH/GM PACKET TOPICAL SCH (05:54)
[2022-09-05] MEDS ORDERED: PANTOPRAZOLE 40 MG TABLET PO SCH (07:30)
[2022-09-05] MEDS ORDERED: ASPIRIN 325 MG TAB PO SCH (09:00)
[2022-09-05] MEDS ORDERED: ATORVASTATIN 10 MG TAB PO SCH (09:00)
[2022-09-05] MEDS ORDERED: amLODIPine 2.5 MG TAB PO SCH (09:00)
[2022-09-05] MEDS ORDERED: ASPIRIN 81 MG PO SCH (09:00)
[2022-09-05] MEDS ORDERED: LOSARTAN 50 MG TAB PO SCH (09:00)
--- NOTE | 2022-09-05 10:36 | P.CRDCN ---
History of Present Illness History of present illness: HISTORY OF PRESENT ILLNESS: This is a 57-year-old male with a past medical history significant for hypertension, hyperlipidemia, former nicotine dependence (patient quit smoking 20 years ago), and former alcohol use (patient states he quit drinking 1 year ago). Patient does not follow with a hand grinder. We have been asked to see the patient in consultation for chest pain. Patient examined at the bedside. Patient states he initially began having chest discomfort Saturday morning around 3 AM. He states he woke up from sleep with right-sided chest pain and mids ternal chest pain. He states initially he thought this was related to his GERD as he gets the symptoms if he misses his dose of omeprazole. He states yesterday around 5:00 he began having the same symptoms. He denied any shortness of breath. Denied any diaphoresis. He denied any radiation of the pain. He does report having nausea on Saturday. The patient reports he is normally active and works out 2-3 times a week doing [employer]. He also reports an intentional weight loss of 25 pounds over the past year. The patient reports his dad suffered a stroke when he was in his 40s and his grandpa at the age of 63 secondary to heart attack. * EKG reveals sinus mechanism with no signs of acute ischemia * Chest xray negative for acute process * Laboratory data: WBC 7.0. Hemoglobin 13.7. Platelet count 209. D-dimer 0.27. Sodium 139. Potassium 4.1. BUN 22. Creatinine 0.9. Troponin nega tive 3 * Current home cardiac medications include amlodipine 2.5 mg daily, losartan 50 mg twice a day, simvastatin 20 mg daily REVIEW OF SYSTEMS: At the time of my exam: CONSTITUTIONAL: Denies fever or chills. HEENT: Denies blurred vision, vision changes, or eye pain. Denies hemoptysis CARDIOVASCULAR: Denies chest pain. Denies orthopnea. Denies PND. Denies palpit ations RESPIRATORY: Denies shortness of breath. GASTROINTESTINAL: Denies abdominal pain. Denies nausea or vomiting. HEMATOLOGIC: Denies bleeding disorders. GENITOURINARY: Denies any blood in urine. SKIN: Denies pruitis. Denies rash. PHYSICAL EXAM: VITAL SIGNS: Reviewed. GENERAL: Well-developed in no acute distress. HEENT: Head is normocephalic. Pupils are equal, round. Sclerae anicteric. Mucous membranes of the mouth are moist. Neck supple. No JVD or thyromegaly LUNGS: Respirations even and unlabored. Lungs essentially clear to auscultation bilaterally. HEART: Regular rate and rhythm. S1 and S2 heard. ABDOMEN: Soft. Nondistended. Nontender. EXTREMITIES: Normal range of motion. No clubbing or cyanosis. Peripheral pulses intact. No lower extremity edema NEUROLOGIC: Awake and alert. Oriented x 3. ASSESSMENT: Chest pain, troponins negative 3 Hypertension Hyperlipidemia Former nicotine dependence PLAN: An acute coronary event has been ruled out Resume home cardiac medications Obtain 2-D echo to assess cardiac structure and function Patient to undergo stress echocardiogram today If negative, recommend GI workup Further recommendations pending patient's course Nurse practitioner note has been reviewed by physician. Signing provider agrees with the documented findings, assessment, and plan of care. Past Medical History Past Medical History: Asthma, GERD/Reflux, Hypertension Additional Past Medical History / Comment(s): intermittent freq loose stools with constipation,occasional bleeding hemorrhoids, sciatic nerve pain,.DDD (cervical), Pain right shoulder. History of Any Multi-Drug Resistant Organisms: None Reported Past Surgical History: Tonsillectomy Additional Past Surgical History / Comment(s): growth removed from scrotum at age 13, needle removed rt foot, colonoscopy. Past Anesthesia/Blood Transfusion Reactions: No Reported Reaction Additional Past Anesthesia/Blood Transfusion Reaction / Comment(s): . Past Psychological History: Anxiety, Depression Smoking Status: Former smoker Past Alcohol Use History: Occasional Past Drug Use History: None Reported - Past Family History Father Family Medical History: Congestive Heart Failure (CHF), CVA/TIA, Diabetes Mellitus, Renal Disease Mother Family Medical History: No Reported History Medications and Allergies Home Medications Medication Instructions Recorded Confirmed Type Citalopram Hydrobromide [CeleXA] 40 mg PO DAILY@1600 08/22/16 09/04/22 History Omeprazole 40 mg PO DAILY 08/22/16 09/04/22 History buPROPion HCL [Wellbutrin Sr] 100 mg PO DAILY@1600 03/28/17 09/04/22 History Losartan [Cozaar] 50 mg PO BID 04/25/20 09/04/22 History Simvastatin [Zocor] 20 mg PO DAILY 04/25/20 09/04/22 History amLODIPine BESYLATE [Norvasc] 2.5 mg PO DAILY 04/25/20 09/04/22 History Albuterol Sulfate [Proventil Hfa] 2 puff INHALATION RT-QID PRN 09/04/22 09/04/22 History Cbd Gummies (Unknown Strength) 1 dose PO HS 09/04/22 09/04/22 History Elderberry Fruit and Flower [Black 1 cap PO DAILY 09/04/22 09/04/22 History Elderberry 575 mg Cap] Fluticasone Propion/Salmeterol 1 puff INHALATION RT-BID 09/04/22 09/04/22 History [Advair 250-50 Diskus] Allergies Allergy/AdvReac Type Severity Reaction Status Date / Time No Known Allergies Allergy Verified 09/04/22 20:18 Physical Exam Vitals: Vital Signs Temp Pulse Pulse Resp BP BP Pulse Ox 09/05/22 05:05 86 17 106/57 97 09/04/22 22:30 98.6 F 71 18 103/59 96 09/04/22 20:54 70 12 131/83 98 09/04/22 19:34 70 70 12 136/87 98 09/04/22 18:30 98 F 86 16 113/74 97 Intake and Output 09/04/22 09/05/22 09/05/22 22:59 06:59 14:59 Other: # Voids 2 Weight 113.398 kg Results 09/04/22 19:13 09/04/22 19:13 Cardiac Enzymes 09/04/22 09/04/22 09/04/22 Range/Units 19:13 19:13 21:52 AST 26 (17-59) U/L Troponin I <0.012 <0.012 (0.000-0.034) ng/mL 09/05/22 Range/Units 00:26 AST (17-59) U/L Troponin I <0.012 (0.000-0.034) ng/mL Coagulation 09/04/22 Range/Units 19:13 PT 10.3 (9.0-12.0) sec APTT 25.1 (22.0-30.0) sec CBC 09/04/22 Range/Units 19:13 WBC 7.0 (3.8-10.6) k/uL RBC 4.90 (4.30-5.90) m/uL Hgb 13.7 (13.0-17.5) gm/dL Hct 41.9 (39.0-53.0) % Plt Count 209 (150-450) k/uL Comprehensive Metabolic Panel 09/04/22 Range/Units 19:13 Sodium 139 (137-145) mmol/L Potassium 4.1 (3.5-5.1) mmol/L Chloride 105 (98-107) mmol/L Carbon Dioxide 25 (22-30) mmol/L BUN 22 H (9-20) mg/dL Creatinine 0.89 (0.66-1.25) mg/dL Glucose 94 (74-99) mg/dL Calcium 9.0 (8.4-10.2) mg/dL AST 26 (17-59) U/L ALT 26 (4-49) U/L Alkaline Phosphatase 73 (38-126) U/L Total Protein 6.7 (6.3-8.2) g/dL Albumin 4.2 (3.5-5.0) g/dL Current Medications Generic Name Dose Route Start Last Admin Trade Name Freq PRN Reason Stop Dose Admin Albuterol Sulfate 2.5 mg 09/04/22 21:38 Albuterol Nebulized 2.5 Mg/3 Ml INHALATION RT-QID PRN Shortness Of Breath Amlodipine Besylate 2.5 mg 09/05/22 09:00 Amlodipine 2.5 Mg Tab PO DAILY [facility] Aspirin 325 mg 09/05/22 09:00 Aspirin 325 Mg Tab PO DAILY [facility] Atorvastatin Calcium 10 mg 09/05/22 09:00 Atorvastatin 10 Mg Tab PO DAILY [facility] Bupropion HCl 100 mg 09/05/22 16:00 Bupropion Sr 100 Mg Tablet.Er PO DAILY@1600 [facility] Citalopram Hydrobromide 40 mg 09/05/22 16:00 Citalopram Hydrobromide 20 Mg Tab PO DAILY@1600 [facility] Losartan Potassium 50 mg 09/05/22 09:00 Losartan 50 Mg Tab PO BID [facility] Nitroglycerin 0.4 mg 09/04/22 21:38 Nitroglycerin Sl Tabs 0.4 Mg Tab SUBLINGUAL Q5M PRN Chest Pain Nitroglycerin 1 inch 09/05/22 00:00 09/05/22 05:54 Nitroglycerin Oint 1 Inch/Gm Packet TOPICAL 1 inch Q6HR [facility] Administration Pantoprazole Sodium 40 mg 09/05/22 07:30 09/05/22 05:54 Pantoprazole 40 Mg Tablet PO 40 mg [id number] ESTUARDO Administration Zolpidem Tartrate 5 mg 09/04/22 23:42 Zolpidem 5 Mg Tab PO HS PRN Insomnia Intake and Output 09/04/22 09/05/22 09/05/22 22:59 06:59 14:59 Other: # Voids 2 Weight 113.398 kg 09/04/22 19:13 09/04/22 19:13
[2022-09-05 11:04] LABS: Chol/HDL Ratio 3.17 Ratio; LDL Cholesterol,Calculated 78.7 mg/dL (0.0-131.0); VLDL Calculation 12.42 mg/dL (5.00-40.00)
[2022-09-05 15:07] VITALS: TEMP 98
[2022-09-05] MEDS ORDERED: CITALOPRAM HYDROBROMIDE 20 MG TAB PO SCH (16:00)
[2022-09-05] MEDS ORDERED: buPROPion SR 100 MG TABLET.ER PO SCH (16:00)
--- NOTE | 2022-09-05 16:34 | CA ---
Stress Echo Report Jorden Almaraz Age: 57 Gender: M : 1965 Exam Date: 09/05/2022 11:19 Exam Location: [place] [facility] Ht (in): 72 Wt (lb): 250 Ordering Physician: Margi Jain Referring Physician: [id number] Assistant Sales Center Manager: AUGIE, Technologist Procedure CPT: Indication: CP ICD-9 Codes: Rhythm: Patient History: Chest pain Cardiac Medications: Medications in past 24 hours: Contrast: Lumason Stress Results Protocol: Wilmer Total dose(mL): 10 Exercise Duration (min:sec): Max ST Depression (mm): Angina Score: Lewis Score: METS: 8.1 Resting HR: 96 Resting BP: 100 / 65 Peak HR: 152 Peak BP: 145 / 59 Max Predicted HR: 162 94 % Max Predicted HR Target HR: 138 Double Product: 79900 Stress Summary: BP Response: Reason for Termination: Reached target heart rate or work-load Cardiac Symptoms: Test terminated after reaching target heart rate (85% max predicted) ECG Analysis Resting ECG: Normal sinus rhythm normal axis normal intervals Stress ECG: Patient exercised on Wilmer protocol for a total of 6 and half minutes achieving 8 mets 85% of predicted maximal heart rate without chest pain or diagnostic ST segment depression Arrhythmia: Echo Analysis Resting Echo: Normal left ventricular size wall motion systolic function contrast agent was used to enhance endocardial visualization Peak Echo Analysis: Normal hyperdynamic response this was a contrast echo MEASUREMENTS (Male/Female) Normal Values CONCLUSIONS Average exercise tolerance Negative stress echo Dr. Maikel Lozada MD (Electronically Signed) Final Date: 05 September 2022 16:33
--- NOTE | 2022-09-05 16:41 | CA ---
Transthoracic Echo Report Name: Jorden Almaraz Age: 57 Gender: M : 1965 Exam Date: 09/05/2022 11:37 Exam Location: [place] [facility] Ht (in): 72 Wt (lb): 240 Ordering Physician: Margi Jain Attending/Referring Phys: [id number], Cristobal Meteorologist Liaison Vivi Patiño, MATTHEW Procedure CPT: Indications: LV function Cardiac Hx: Technical Quality: Contrast 1: Total Dose (mL): Contrast 2: Total Dose (mL): MEASUREMENTS (Male / Female) Normal Values 2D ECHO LV Diastolic Diameter PLAX 4.7 cm 4.2 - 5.9 / 3.9 - 5.3 cm LV Systolic Diameter PLAX 4.1 cm IVS Diastolic Thickness 1.0 cm 0.6 - 1.0 / 0.6 - 0.9 cm LVPW Diastolic Thickness 1.1 cm 0.6 - 1.0 / 0.6 - 0.9 cm LV Relative Wall Thickness 0.5 RV Internal Dim ED PLAX 2.9 cm LA Systolic Diameter LX 4.1 cm 3.0 - 4.0 / 2.7 - 3.8 cm LA Volume 81.9 cm??? 18 - 58 / 22 - 52 cm??? M-MODE Aortic Root Diameter MM 3.4 cm LA Systolic Diameter MM 4.3 cm LA Ao Ratio MM 1.3 MV E Point Septal Separation 0.7 cm AV Cusp Separation MM 2.4 cm DOPPLER MV Area PHT 4.1 cm??? Mitral E Point Velocity 76.3 cm/s Mitral A Point Velocity 94.3 cm/s Mitral E to A Ratio 0.8 MV Deceleration Time 184.3 ms MV E' Velocity 7.4 cm/s Mitral E to MV E' Ratio 10.2 FINDINGS Left Ventricle Left ventricular ejection fraction is estimated at 55%.left ventricular cavity size normal. Right Ventricle Normal right ventricular size and function. Right Atrium Normal right atrial size. Left Atrium Mildly increased left atrial diameter. Severely increased left atrial volume. Mildly increased left atrial area. Mitral Valve Structurally normal mitral valve. Mild mitral regurgitation. Aortic Valve Trileaflet aortic valve. Tricuspid Valve Structurally normal tricuspid valve. Pulmonic Valve Structurally normal pulmonic valve. Pericardium Normal pericardium. Aorta Normal size aortic root and proximal ascending aorta. CONCLUSIONS Normal LV function Enlarged left atrium Mild mitral regurgitation Previewed by: Dr. Maikel Lozada MD (Electronically Signed) Final Date: 05 September 2022 16:40
--- NOTE | 2022-09-05 17:25 | P.DS ---
Providers Date of admission: 09/04/22 21:38 Expected date of discharge: 09/05/22 Attending physician: Ciara Dallas MD Consults: 09/04/22 21:38 Consult Physician Urgent Consulting Provider: Benedicto Reddy Consult Reason/Comments: cp Do you want consulting provider notified?: Yes Primary care physician: [facility] Course: Chest pain, atypical GERD Hypertension Asthma 57 year old male with hyperlipidemia , hypertension presented after experiencing chest pain. In the emergency room, patient was afebrile, 113/74, heart rate 86, 97% on room air. CBC was unremarkable. Chemistries were unremarkable. Troponin was less than 0.012, trended to less than 0.012 after 2 different checks. Lipid panel is negative. Amylase, lipase is 49, 83. EKG showed normal sinus rhythm with no acute ST changes. CXR showed no acute pathology , d-dimer was negative. Case was discussed with emergency room physician and patient was admitted to the observation for further evaluation. Cardiology was consulted and recommended echocardiogram as well as echo stress test. With completed and showed normal ejection fraction with no evidence of wall motion abnormality as well as normal hemodynamic response to stress. Patient was also discharged home with PCP follow-up. Gen: awake, alert HEENT: normocephalic, atraumatic, good hearing acuity, moist mucous membranes Resp: good air exchange, breathing comfortably with no accessory muscle use, clear to auscultation bilaterally CVS: good distal perfusion x 4, regular rate and rhythm without murmurs GI: soft, NTTP, ND : no SPT, no CVAT, shepard catheter not present MSK: no pitting edema, no clubbing Neuro: non-focal, moving all extremities Psych: cooperative, euthymic mood Patient Condition at Discharge: Good Plan - Discharge Summary Discharge Rx Participant: No New Discharge Prescriptions: Continue Citalopram Hydrobromide [CeleXA] 40 mg PO DAILY@1600 Omeprazole 40 mg PO DAILY buPROPion HCL [Wellbutrin SR] 100 mg PO DAILY@1600 Losartan [Cozaar] 50 mg PO BID Simvastatin [Zocor] 20 mg PO DAILY amLODIPine BESYLATE [Norvasc] 2.5 mg PO DAILY Fluticasone Propion/Salmeterol [Advair 250-50 Diskus] 1 puff INHALATION RT- BID Albuterol Sulfate [Proventil Hfa] 2 puff INHALATION RT-QID PRN PRN Reason: Shortness Of Breath Cbd Gummies (Unknown Strength) 1 dose PO HS Elderberry Fruit and Flower [Black Elderberry 575 mg Cap] 1 cap PO DAILY Discharge Medication List Citalopram Hydrobromide [CeleXA] 40 mg PO DAILY@1600 08/22/16 [History] Omeprazole 40 mg PO DAILY 08/22/16 [History] buPROPion HCL [Wellbutrin SR] 100 mg PO DAILY@1600 03/28/17 [History] Losartan [Cozaar] 50 mg PO BID 04/25/20 [History] Simvastatin [Zocor] 20 mg PO DAILY 04/25/20 [History] amLODIPine BESYLATE [Norvasc] 2.5 mg PO DAILY 04/25/20 [History] Albuterol Sulfate [Proventil Hfa] 2 puff INHALATION RT-QID PRN 09/04/22 [History] Cbd Gummies (Unknown Strength) 1 dose PO HS 09/04/22 [History] Elderberry Fruit and Flower [Black Elderberry 575 mg Cap] 1 cap PO DAILY 09/04/22 [History] Fluticasone Propion/Salmeterol [Advair 250-50 Diskus] 1 puff INHALATION RT-BID 09/04/22 [History] Follow up Appointment(s)/Referral(s): Zara Pisano MD [Primary Care Provider] - 1-2 days Patient Instructions/Handouts: Cardiac Stress Test (DC) Discharge Disposition: HOME SELF-CARE
[2022-09-05 17:39] VITALS: BP 106/57; PULSE 85; RESP 17
== END 2022-09-05 17:36 | disposition home or self-care (01) ==
LOC: EC 18:21 → 3SCARD 21:38
PROVIDERS: ADMIT Internal Medicine; ATTEND Internal Medicine
DX: R07.89 Other chest pain (principal); J45.909 Unspecified asthma, uncomplicated; K21.9 Gastro-esophageal reflux disease without esophagitis; I10 Essential (primary) hypertension; F32.A Depression, unspecified; F41.9 Anxiety disorder, unspecified; E78.5 Hyperlipidemia, unspecified; Z87.891 Personal history of nicotine dependence; Z79.51 Long term (current) use of inhaled steroids; Z79.899 Other long term (current) drug therapy
CPT/HCPCS: 96374; 99285; 36415; 93005; 93306; 93351; 85379; 80061; 80053; 82150; 83690; 83735; 84484 ×2; 85025; 85610; 85730; 83036; 71046; G0378 ×2; J2270; S0106; Q9950

== ENCOUNTER 2022-09-07 22:21 | Emergency (ER) | payer MEDICAID ==
[2022-09-07 22:25] VITALS: BP 120/74; PULSE 98; RESP 22; TEMP 97
[2022-09-07] MEDS ORDERED: SODIUM CHLORIDE 0.9% 1,000 ML IV STA (22:37)
[2022-09-07] MEDS ORDERED: PANTOPRAZOLE 40 MG/10 ML VIAL IVP STA (22:38)
[2022-09-07] MEDS ORDERED: MAG HYDROX/AL HYDROX/SIMETH 30 ML, HYOSCYAMINE ELIXIR 10 ML, LIDOCAINE VISCOUS 2% 10 ML PO STA ×3 (22:39)
--- NOTE | 2022-09-07 22:46 | ED ---
Abdominal Pain HPI - General Chief Complaint: Abdominal Pain Stated Complaint: Chest pain Time Seen by Provider: 09/07/22 22:42 Source: patient, RN notes reviewed, old records reviewed Mode of arrival: ambulatory Limitations: no limitations - History of Present Illness Initial Comments: 57-year-old male presents to the emergency room with epigastric burning up into his chest for the past few days. States she was just discharged from the hospital for the same thing on the . He does not remember everything that they did while he was here was told to follow up with his primary care doctor but is unable to get an appointment. Patient states, pain, worse after eating today. Did take his Celexa and Wellbutrin and Motrin with no relief. -: days(s) (3) Location: epigastric Radiation: chest Quality: burning Consistency: constant Worsens With: eating - Related Data Home Medications Medication Instructions Recorded Confirmed Citalopram Hydrobromide [CeleXA] 40 mg PO DAILY@1600 08/22/16 09/04/22 Omeprazole 40 mg PO DAILY 08/22/16 09/04/22 buPROPion HCL [Wellbutrin SR] 100 mg PO DAILY@1600 03/28/17 09/04/22 Losartan [Cozaar] 50 mg PO BID 04/25/20 09/04/22 Simvastatin [Zocor] 20 mg PO DAILY 04/25/20 09/04/22 amLODIPine BESYLATE [Norvasc] 2.5 mg PO DAILY 04/25/20 09/04/22 Albuterol Sulfate [Proventil Hfa] 2 puff INHALATION RT-QID PRN 09/04/22 09/04/22 Cbd Gummies (Unknown Strength) 1 dose PO HS 09/04/22 09/04/22 Elderberry Fruit and Flower [Black 1 cap PO DAILY 09/04/22 09/04/22 Elderberry 575 mg Cap] Fluticasone Propion/Salmeterol 1 puff INHALATION RT-BID 09/04/22 09/04/22 [Advair 250-50 Diskus] Previous Rx's Medication Instructions Recorded Pantoprazole [Protonix] 40 mg PO DAILY 30 Days #30 tab 09/07/22 Allergies Allergy/AdvReac Type Severity Reaction Status Date / Time No Known Allergies Allergy Verified 09/04/22 20:18 Review of Systems ROS Statement: Those systems with pertinent positive or pertinent negative responses have been documented in the HPI. ROS Other: All systems not noted in ROS Statement are negative. Past Medical History Past Medical History: Asthma, GERD/Reflux, Hypertension Additional Past Medical History / Comment(s): intermittent freq loose stools with constipation,occasional bleeding hemorrhoids, sciatic nerve pain,.DDD (cervical), Pain right shoulder. History of Any Multi-Drug Resistant Organisms: None Reported Past Surgical History: Tonsillectomy Additional Past Surgical History / Comment(s): growth removed from scrotum at age 13, needle removed rt foot, colonoscopy. Past Anesthesia/Blood Transfusion Reactions: No Reported Reaction Additional Past Anesthesia/Blood Transfusion Reaction / Comment(s): . Past Psychological History: Anxiety, Depression Smoking Status: Former smoker Past Alcohol Use History: Occasional Past Drug Use History: None Reported - Past Family History Father Family Medical History: Congestive Heart Failure (CHF), CVA/TIA, Diabetes Mellitus, Renal Disease Mother Family Medical History: No Reported History General Exam Limitations: no limitations General appearance: alert, in no apparent distress Head exam: Present: atraumatic, normocephalic Eye exam: Present: normal appearance. Absent: scleral icterus, conjunctival injection, periorbital swelling, periorbital tenderness ENT exam: Present: mucous membranes moist Neck exam: Absent: tenderness, meningismus Respiratory exam: Present: normal lung sounds bilaterally. Absent: respiratory distress, accessory muscle use Cardiovascular Exam: Present: regular rate GI/Abdominal exam: Present: soft, tenderness (Epigastric). Absent: distended, guarding, rebound, rigid Extremities exam: Present: normal capillary refill Back exam: Present: normal inspection, tenderness (Mid thoracic). Absent: rash noted Neurological exam: Present: alert, oriented X3, normal gait Psychiatric exam: Present: anxious Skin exam: Present: warm, dry, intact, normal color. Absent: cyanosis, diaphoretic, petechiae, pallor Course Vital Signs 09/07/22 22:23 Temperature 97 F L Pulse Rate 98 Respiratory 22 Rate Blood Pressure 120/74 O2 Sat by Pulse 99 Oximetry Medical Decision Making - Medical Decision Making Patient presents with 10 out of 10 epigastric burning. Denies nausea vomiting diarrhea or fevers. No difficulty breathing. No diaphoresis. Patient refusing IV and labs. States he is feeling much better after the GI cocktail and ready to be discharged home. I did offer further testing including labs and CT and he declined at this time related to "I don't want to run up a bill". EKG shows sinus rhythm with no significant change compared to old dated 09/04/2022. Patient was admitted September 04 and had cardiac consult including an echo that showed normal left ventricular function, enlarged left atrium, mild mitral regurgitation Stress echo showed average exercise tolerance, negative stress echo. He will be placed on Protonix directed to discontinue omeprazole. Directed to follow up with Dr. Lozada for further evaluation of epigastric pain GERD versus peptic ulcer disease. Return to the emergency room with any new or concerning symptoms. He is agreeable to this plan of care. Case discussed with Dr. Ozuna. History of asthma, GERD, hypertension, anxiety and depression. Former smoker quit several years ago. Was pt. sent in by a medical professional or institution? @ -no Did you speak to anyone other than the patient for history? @ -no Did you review nursing and triage notes? @ -yes i agree Were old charts reviewed? @ -yes old ekg, and echo, last admission documentation Differential Diagnosis? @ -Differential Abdominal Pain Men: Appendicitis, cholecystitis, diverticulosis, ischemic bowel, pancreatitis, hepatitis, gastroenteritis, AAA, incarcerated hernia, hepatitis, peptic ulcer disease, splenic infarction, perforated viscus, this is not meant to be an all- inclusive list EKG interpreted by me (3pts min.)? @ -yes as above X-rays interpreted by me (1pt min.)? @ -[none] CT interpreted by me (1pt min.)? @ -[none] U/S interpreted by me (1pt. min.)? @ -[none] What testing was considered but not performed? (CT, X-rays, U/S, labs)? Why? @ CT and labs however patient refused What meds were considered but not given? Why? @ -none Did you discuss the management of the patient with other professionals? @ -no Did you reconcile home meds? @ -no Was smoking cessation discussed for >3mins.? @ -n/a Was critical care preformed (if so, how long)? @ -no Were there social determinants of health that impacted care today? How? (Homelessness, low income, unemployed, alcoholism, drug addiction, transportation, low edu. Level, literacy, decrease access to med. care, long term, rehab)? @ -none Was there de-escalation of care discussed even if they declined? (Discuss DNR or withdrawal of care, Hospice)? @ -no What co-morbidities impacted this encounter? (DM, HTN, Smoking, COPD, CAD, Cancer, CVA, Hep., AIDS, mental health diagnosis, sleep apnea, morbid obesity)? @ -Asthma, GERD, hypertension, anxiety and depression Was patient admitted / discharged? @ -discharged Undiagnosed new problem with uncertain prognosis? @ -[none] Drug Therapy requiring intensive monitoring for toxicity (Heparin, Nitro, Insulin, Cardizem)? @ -no Were any procedures done? @ -no Diagnosis/symptom? @ -GERD Acute, or Chronic, or Acute on Chronic? @ -acute Uncomplicated (without systemic symptoms) or Complicated (systemic symptoms)? @ -[default] Side effects of treatment? @ -[none] Exacerbation, Progression, or Severe Exacerbation] @ -[no] Poses a threat to life or bodily function? @ -[no] - EKG Data EKG shows normal: sinus rhythm (Ventricular rate 89, MT interval 0.164, QRS 0. 105, QTC 0.416, sinus rhythm, normal axis) Disposition Clinical Impression: Epigastric pain, GERD (gastroesophageal reflux disease) Disposition: HOME SELF-CARE Condition: Good Instructions (If sedation given, give patient instructions): Epigastric Pain (ED) Additional Instructions: Take Protonix daily as prescribed. Follow-up with Dr. Lozada the helpdesk administrator for endoscopy. Return to the emergency room with any new or concerning symptoms including increased pain, fevers or persistent nausea vomiting. Prescriptions: Pantoprazole [Protonix] 40 mg PO DAILY 30 Days #30 tab Is patient prescribed a controlled substance at d/c from ED?: No Referrals: Chuck Coleman MD [Primary Care Provider] - 1-2 days Sheri Lozada MD [STAFF PHYSICIAN] - 1-2 days Time of Disposition: 23:37
== END 2022-09-07 23:44 | disposition home or self-care (01) ==
LOC: EC 22:21
DX: R10.13 Epigastric pain (principal); K21.9 Gastro-esophageal reflux disease without esophagitis; J45.909 Unspecified asthma, uncomplicated; I10 Essential (primary) hypertension; F41.9 Anxiety disorder, unspecified; F32.A Depression, unspecified; Z87.891 Personal history of nicotine dependence; Z79.899 Other long term (current) drug therapy
CPT/HCPCS: 93005; 99284

== ENCOUNTER → 2023-03-22 | Day surgery (SDC) | payer MEDICAID ==
[~2023-03-22] MED LIST changes: -DEXAMETHASONE SOD PHOSPHATE 10 MG/ML 1 ML VIAL IV ONE; -DEXAMETHASONE SOD PHOSPHATE 4 MG/ML 1 ML VIAL ONE; -FAMOTIDINE 20 MG/2 ML VIAL IV PRN; -HYDROmorphone 0.5 MG/0.5 ML SYRINGE IVP PRN; -LACTATED RINGERS 1,000 ML IV ONE; -LIDOCAINE 1% (10MG/ML) FOR IV START INTRADERMA ONE; -LIDOCAINE 1% INJ 10MG/ML (20 ML MDV) ONE; +LIDOCAINE 2% INJ 20 MG/ML (2 ML VIAL) ONE; -MIDAZOLAM 2 MG/2 ML VIAL IVP ONE; -MIDAZOLAM 2 MG/2 ML VIAL ONE; -ONDANSETRON 4 MG/2 ML VIAL IVP PRN; -ONDANSETRON 4 MG/2 ML VIAL ONE; -ROPIVACAINE 5 MG/ML 30 ML VIAL ONE; -SUCCINYLCHOLINE CHLORIDE VIAL 200 MG/10 ML VIAL IV ONE; -ceFAZolin 3 GM in SODIUM CHLORIDE 0.9% 100 ML IVPB ONE; -fentaNYL (PF) 50 MCG/ML 2 ML AMP ONE
[2023-03-22 11:01] VITALS: TEMP 97.4
--- NOTE | 2023-03-22 12:22 | P.PCN ---
Date of Procedure: 03/22/23 Procedure(s) Performed: BRIEF HISTORY: Patient is a 57-year-old, pleasant, white male scheduled for an upper endoscopy as a part of surveillance of Bell's esophagus with biopsies that showed indefinite for dysplasia in September of this year.. He has since been on Protonix 40 mg twice daily as scheduled for repeat upper endoscopy PROCEDURE PERFORMED: Esophagogastroduodenoscopy with biopsy. PREOPERATIVE DIAGNOSIS: GERD/Bell's esophagus indefinite for dysplasia. IV sedation per anesthesia. PROCEDURE: After informed consent was obtained, the patient was brought into the endoscopy unit. IV sedation was administered by Anesthesia under continuous monitoring. Initially the Olympus GIF-140 video endoscope was inserted into the mouth. Esophagus intubated without any difficulty. It was gradually advanced into the stomach and duodenum and carefully examined. The bulb and the second part of the duodenum appeared normal. The scope at this time was withdrawn to the stomach, adequately insufflated with air, and upon careful examination, mucosa of the antrum, body, cardia and the fundus appeared normal. Multiple small gastric polyps were noted which were biopsied. The scope was then withdrawn into the esophagus. Small hiatal hernia noted. The GE junction was located at 39 cm from the incisors. There were 2 tongues of Bell's appearing mucosa measuring 2 mm and 3 mm just proximal to the GE junction which was biopsied. The rest of the esophagus appeared normal. There were no erosions or ulcerations seen and the patient tolerated the procedure well. IMPRESSION: 1. Short segment Bell's esophagus with 2 mm and 3 mm tongue of Bell's appearing mucosa just proximal to the GE junction status post multiple biopsies. 2. Small hiatal hernia 3. Multiple small gastric polyps. RECOMMENDATIONS: The findings of this examination were discussed with the patient as well as his family. He was advised to follow with the biopsy results. Continue with Protonix 40 mg twice daily and follow antrum reflux measures. Based on the biopsy results will plan a repeat upper endoscopy in 1-3 years.
[2023-03-22 12:26] VITALS: RESP 16
[2023-03-22 12:37] VITALS: PULSE 87
[2023-03-22 12:49] VITALS: BP 122/81
== END ==
LOC: ORWHC2ENDO 10:41
PROVIDERS: ATTEND Internal Medicine Gastroenterology
DX: K22.70 Barrett's esophagus without dysplasia (principal); K21.9 Gastro-esophageal reflux disease without esophagitis; Z79.899 Other long term (current) drug therapy; K31.7 Polyp of stomach and duodenum; K44.9 Diaphragmatic hernia without obstruction or gangrene; E78.5 Hyperlipidemia, unspecified; I10 Essential (primary) hypertension; J45.909 Unspecified asthma, uncomplicated; F41.9 Anxiety disorder, unspecified; Z88.9 Allergy status to unspecified drugs, medicaments and biological substances; Z87.891 Personal history of nicotine dependence
CPT/HCPCS: 88305; 43239; J2704; J2001

== ENCOUNTER → 2023-11-18 | Outpatient (CLI) | payer MEDICAID ==
[2023-11-18 11:00] LABS: Basophils # (A) 0.02 X 10*3/uL (0.00-0.10); Basophils % (A) 0.4 %; Eosinophils # (A) 0.39 X 10*3/uL (0.04-0.35); Eosinophils % (A) 7.2 %; HCT 42.7 % (39.6-50.0); HGB 13.5 g/dL (13.0-17.0); Lymphocytes # (A) 0.85 X 10*3/uL (0.90-5.00); Lymphocytes % (A) 15.6 %; MCH 27.7 pg (27.0-32.0); MCHC 31.6 g/dL (32.0-37.0); MCV 87.7 FL (80.0-97.0); Mean Platelet Volume 10.8 FL (9.5-12.2); Monocytes # (A) 0.47 X 10*3/uL (0.20-1.00); Monocytes % (A) 8.6 %; NRBC Per 100 WBC 0 X 10*3/uL (0.00-0.01); Neutrophils # (A) 3.71 X 10*3/uL (1.80-7.70); Platelet Count 227 X 10*3/uL (140-440); RBC 4.87 X 10*6/uL (4.40-5.60); RDW 14.1 % (11.5-14.5); WBC 5.45 X 10*3/uL (4.50-10.00)
[2023-11-18 11:21] LABS: ALT 29 U/L (10-49); AST 19 U/L (14-35); Albumin 4.3 g/dL (3.8-4.9); Albumin/Globulin Ratio 1.79 Ratio (1.60-3.17); Alkaline Phosphatase 86 U/L (41-126); Blood Urea Nitrogen 18.8 mg/dL (9.0-27.0); Calcium 9.2 mg/dL (8.7-10.3); Carbon Dioxide 24.9 mmol/L (21.6-31.8); Chloride 105 mmol/L (96-109); Chol/HDL Ratio 3.48 Ratio; Globulin 2.4 g/dL (1.6-3.3); Glucose 121 mg/dL (70-110); LDL Cholesterol,Calculated 111.2 mg/dL (0.0-131.0); PSA Annual Screen 0.631 ng/mL (0.000-4.000); Potassium 4.4 mmol/L (3.5-5.5); Sodium 140 mmol/L (135-145); T4, Free (Free Thyroxine) 1.07 ng/dL (0.80-1.80); Total Bilirubin 0.5 mg/dL (0.3-1.2); Total Protein 6.7 g/dL (6.2-8.2); VLDL Calculation 17.14 mg/dL (5.00-40.00)
== END | disposition home or self-care (01) ==
LOC: LABWHC1 07:15
PROVIDERS: ATTEND Internal Medicine
DX: Z12.5 Encounter for screening for malignant neoplasm of prostate (principal); I10 Essential (primary) hypertension; E78.5 Hyperlipidemia, unspecified
CPT/HCPCS: 84439; 80061; 80053; 84443; 85025; 83036; 36415; G0103

== ENCOUNTER 2024-12-16 08:50 | Inpatient (IN) | payer MEDICAID, OTHER ==
[2024-12-16] MEDS: ONDANSETRON 4 MG/2 ML VIAL IVP STA (10:37)
[2024-12-16] MEDS: KETOROLAC 15 MG/ML 1 ML VIAL IVP STA ×2 (10:37→19:01)
[2024-12-16] MEDS: LACTATED RINGERS 1,000 ML IV ONE (10:38)
[2024-12-16 10:40] LABS: Basophils # (A) 0.04 10*3/uL (0.00-0.10); Basophils % (A) 0.2 %; Eosinophils # (A) 0.05 10*3/uL (0.04-0.35); Eosinophils % (A) 0.3 %; HGB 14.3 g/dL (13.0-17.0); Lymphocytes # (A) 0.45 10*3/uL (0.90-5.00); Lymphocytes % (A) 2.6 %; MCH 28.2 pg (27.0-32.0); MCHC 33.3 g/dL (32.0-37.0); MCV 84.8 fL (80.0-97.0); Mean Platelet Volume 10.4 fL (9.5-12.2); Monocytes # (A) 1.48 10*3/uL (0.20-1.00); Monocytes % (A) 8.6 %; Neutrophils # (A) 14.95 10*3/uL (1.80-7.70); Neutrophils % (A) 87.5 %; Platelet Count 204 10*3/uL (140-440); RBC 5.07 10*6/uL (4.40-5.60); RDW 13.9 % (11.5-14.5); WBC 17.11 10*3/uL (4.50-10.00)
[2024-12-16 10:51] LABS: ALT 66 U/L (4-49); AST 33 U/L (17-59); African American GFR (CKD) >90 (>60 ml/min/1.73 sqM); Albumin 3.4 g/dL (3.5-5.0); Alkaline Phosphatase 103 U/L (38-126); Anion Gap 10 mmol/L; Blood Urea Nitrogen 21 mg/dL (9-20); Calcium 8.9 mg/dL (8.4-10.2); Carbon Dioxide 26 mmol/L (22-30); Chloride 99 mmol/L (98-107); Glucose 123 mg/dL (74-99); Lipase 23 U/L (23-300); Non-African American GFR(CKD) >90 (>60 ml/min/1.73 sqM); Sodium 135 mmol/L (137-145); Total Bilirubin 1.7 mg/dL (0.2-1.3); Total Protein 6.2 g/dL (6.3-8.2)
--- NOTE | 2024-12-16 11:28 | CT ---
EXAMINATION TYPE: CT abdomen pelvis w con CT DLP: 1738.1 mGycm, Automated exposure control for dose reduction was used. DATE OF EXAM: 12/16/2024 11:17 AM COMPARISON: No direct comparisons. CLINICAL INDICATION:Male, 59 years old with history of abdominal pain; Abdominal pain TECHNIQUE: Standard CT of the abdomen and pelvis following the administration of 100 cc of Isovue 3 00 IV contrast material. Coronal and sagittal reformats were performed. FINDINGS: LOWER CHEST: Trace right pleural effusion with associated linear subsegmental atelectasis. Enlarged r ight paraesophageal lymph node measuring up to 1.4 cm. ABDOMEN LIVER: Right hepatic dome 0.8 cm simple cyst. Portal venous vasculature is patent. GALLBLADDER AND BILE DUCTS: Distended gallbladder with wall thickening and surrounding fat stranding. There appears to be a 4 mm calculus within the gallbladder neck. No biliary ductal dilatation. PANCREAS: Unremarkable. SPLEEN: Unremarkable. ADRENAL GLANDS: Unremarkable. KIDNEYS AND URETERS: No evidence of hydronephrosis or renal calculus. The kidneys enhance symmetrical ly. Contrast is demonstrated within both collecting systems and proximal ureters on the delayed phase . Left renal subcentimeter simple appearing cyst. No follow up recommended. PELVIS BLADDER: Unremarkable REPRODUCTIVE: Unremarkable. ABDOMEN & PELVIS STOMACH AND BOWEL: Small hiatal hernia. There is fat stranding and wall thickening involving the hepa tic flexure. The appendix is not identified. No evidence of bowel obstruction. PERITONEUM: No evidence of pneumoperitoneum. Small amount of free fluid in the rectovesicular space. VASCULATURE: No evidence of aortic aneurysm. MUSCULOSKELETAL: No acute osseous abnormalities. Benign vertebral hemangioma involving the T9 vertebr al body. LYMPH NODES: No evidence for lymphadenopathy. SOFT TISSUE/ABDOMINAL WALL: Unremarkable IMPRESSION: 1. Acute cholecystitis with a 4 mm calculus in the gallbladder neck. 2. Reactive inflammatory changes involving the hepatic flexure. 3. Small amount of free fluid in the pelvis. 4. Trace right pleural effusion. [facility], , 12/16/2024 11:26 AM
--- NOTE | 2024-12-16 11:59 | US ---
EXAMINATION TYPE: US gallbladder DATE OF EXAM: 12/16/2024 COMPARISON: Same day CT CLINICAL INDICATION: Male, 59 years old with history of right upper quadrant pain; Nausea, vomiting a nd diarrhea TECHNIQUE: Grayscale and color Doppler imaging of the right upper quadrant was performed. FINDINGS: EXAM MEASUREMENTS: Liver Length: 19.0 cm Gallbladder Wall: 0.6 cm CBD: 0.5 cm Right Kidney: 11.8 x 5.6 x 6.7 cm BEAM BUILDER NOTES:Difficult exam due to patient body habitus and tolerance. Pancreas: Tail obscured by overlying bowel gas Liver: Increased attenuation Gallbladder: ? Distended and full of sludge Evidence for sonographic Gómez's sign: Yes CBD: wnl Right Kidney: limited visualization, WNL as visualized. IMPRESSION: Suboptimal study. CT and ultrasound findings are consistent with acute cholecystitis. Brooks gical evaluation is advised. [facility], , 12/16/2024 11:57 AM
--- NOTE | 2024-12-16 12:26 | ED ---
Abdominal Pain HPI - General Chief Complaint: Abdominal Pain Stated Complaint: ABD Pain Time Seen by Provider: 12/16/24 09:02 Source: patient Mode of arrival: wheelchair Limitations: no limitations - History of Present Illness Initial Comments: 59-year-old male with past medical history of asthma, hypertension, hyperlipidemia who presents emergency department with right upper quadrant abdominal pain. Patient states that the pain has been going on for the past 3 days but has gotten worse. Has pain with deep inspiration. Describes it as a sharp sensation with intermittent cramping. Patient feels nauseated and has vomiting. He denies diarrhea or constipation. He does have a low-grade fever. Denies any Motrin or Tylenol use today. He has not had any abdominal surgeries. Denies any shortness of breath. No changes in his bowel or bladder habits. No other alleviating, precipitating or modifying factors - Related Data Home Medications Medication Instructions Recorded Confirmed Citalopram Hydrobromide [CeleXA] 40 mg PO HS 08/22/16 12/16/24 Simvastatin [Zocor] 20 mg PO DAILY 04/25/20 12/16/24 amLODIPine BESYLATE [Norvasc] 2.5 mg PO DAILY 04/25/20 12/16/24 Pantoprazole [Protonix] 40 mg PO BID 03/20/23 12/16/24 Dicyclomine [Bentyl] 20 mg PO TID 03/22/23 12/16/24 Budesonide/Formoterol Fumarate 2 puff INHALATION RT-BID 12/16/24 12/16/24 [Symbicort 160-4.5 Mcg Inhaler] Celecoxib [CeleBREX] 200 mg PO BID PRN 12/16/24 12/16/24 buPROPion XL [Wellbutrin XL] 300 mg PO HS 12/16/24 12/16/24 busPIRone HCL 10 mg PO BID PRN 12/16/24 12/16/24 Previous Rx's Medication Instructions Recorded polyethylene glycoL 3350 [Miralax] 17 gm PO HS 30 Days #30 packet 12/20/24 Amoxic-Pot Clav 875-125Mg 1 tab PO BID 10 Days #20 tab 12/22/24 [Augmentin 875-125] HYDROcodone/APAP 5-325MG [Morris 1 tab PO Q6HR PRN 3 Days #12 tab 12/22/24 5-325] Allergies Allergy/AdvReac Type Severity Reaction Status Date / Time No Known Allergies Allergy Verified 12/18/24 14:05 Review of Systems ROS Statement: Those systems with pertinent positive or pertinent negative responses have been documented in the HPI. ROS Other: All systems not noted in ROS Statement are negative. Past Medical History Past Medical History: Asthma, GERD/Reflux, Hyperlipidemia, Hypertension, Osteoarthritis (OA) Additional Past Medical History / Comment(s): GERD, recent difficulty for diarrhea. Occasional bleeding hemorrhoids, sciatic nerve pain, DDD (cervical), History of Any Multi-Drug Resistant Organisms: None Reported Past Surgical History: Orthopedic Surgery, Tonsillectomy Additional Past Surgical History / Comment(s): growth removed in scrotum at age 13, needle removed left foot, colonoscopy. RIGHT SHOULDER SURGERY Past Anesthesia/Blood Transfusion Reactions: No Reported Reaction Additional Past Anesthesia/Blood Transfusion Reaction / Comment(s): . Past Psychological History: Anxiety Smoking Status: Former smoker - Past Family History Father Family Medical History: Diabetes Mellitus, Renal Disease Additional Family Medical History / Comment(s): Obesity Mother Family Medical History: COPD General Exam Limitations: no limitations General appearance: alert, in no apparent distress Head exam: Present: atraumatic, normocephalic, normal inspection Eye exam: Present: normal appearance, PERRL, EOMI. Absent: scleral icterus, conjunctival injection, periorbital swelling ENT exam: Present: normal exam, mucous membranes moist Neck exam: Present: normal inspection. Absent: tenderness, meningismus, lymphadenopathy Respiratory exam: Present: normal lung sounds bilaterally. Absent: respiratory distress, wheezes, rales, rhonchi, stridor Cardiovascular Exam: Present: normal rhythm, tachycardia, normal heart sounds. Absent: systolic murmur, diastolic murmur, rubs, gallop, clicks GI/Abdominal exam: Present: soft, tenderness (Right upper quadrant tenderness), normal bowel sounds. Absent: distended, guarding, rebound, rigid Extremities exam: Present: normal inspection, full ROM, normal capillary refill. Absent: tenderness, pedal edema, joint swelling, calf tenderness Back exam: Present: normal inspection Neurological exam: Present: alert, oriented X3, CN II-XII intact Psychiatric exam: Present: normal affect, normal mood Skin exam: Present: warm, dry, intact, normal color. Absent: rash Course Vital Signs 12/16/24 12/16/24 12/16/24 08:55 12:56 14:00 Temperature 97.7 F 99.4 F Pulse Rate 116 H 99 Pulse Rate [ 106 H Pulse Oximetery ] Respiratory 18 18 Rate Blood Pressure 118/80 110/83 Blood Pressure 112/72 [Right Arm] O2 Sat by Pulse 98 94 L 97 Oximetry 12/16/24 15:09 Temperature Pulse Rate 101 H Pulse Rate [ Pulse Oximetery ] Respiratory 18 Rate Blood Pressure 128/44 Blood Pressure [Right Arm] O2 Sat by Pulse 96 Oximetry Medical Decision Making - Medical Decision Making Was pt. sent in by a medical professional or institution (, PA, FORMULATION CHEMIST, urgent care, hospital, or group home...) When possible be specific @ -No Did you speak to anyone other than the patient for history (EMS, parent, family, police, friend...)? What history was obtained from this source @ -I spoke with for history Did you review nursing and triage notes (agree or disagree)? Why? @ -I reviewed and agree with nursing and triage notes Were old charts reviewed (outside hosp., previous admission, EMS record, old EKG, old radiological studies, urgent care reports/EKG's, group home records)? Report findings @ -No old charts were reviewed Differential Diagnosis (chest pain, altered mental status, abdominal pain women, abdominal pain men, vaginal bleeding, weakness, fever, dyspnea, syncope, headache, dizziness, GI bleed, back pain, seizure, CVA, palpatations, mental health, musculoskeletal)? @ -Differential Abdominal Pain Men: Appendicitis, cholecystitis, diverticulosis, ischemic bowel, pancreatitis, hepatitis, UTI, gastroenteritis, AAA, incarcerated hernia, bowel obstruction, constipation, inflammatory bowel, hepatitis, peptic ulcer disease, splenic infarction, perforated viscus, testicular torsion, this is not meant to be an all-inclusive list EKG interpreted by me (3pts min.). @ -Yes and demonstrates sinus tachycardia with a rate of 103. Parable 153. QRS 112. QTc of 409. No acute ST segment elevations or depressions X-rays interpreted by me (1pt min.). @ -None done CT interpreted by me (1pt min.). @ -Yes which demonstrates acute cholecystitis with stone and gallstone neck U/S interpreted by me (1pt. min.). @ -yes which demonstrates acute cholecystitis What testing was considered but not performed or refused? (CT, X-rays, U/S, labs)? Why? @ -None What meds were considered but not given or refused? Why? @ -None Did you discuss the management of the patient with other professionals (professionals i.e. DrJose, PA, FORMULATION CHEMIST, lab, RT, psych nurse, social organization professor, tool pusher, teacher, chief diversity officer, disability case manager)? Give summary @ -Spoke with Dr. Burton who would like patient admitted to medicine. Spoke with Dr. Schultz for admission Was smoking cessation discussed for >3mins.? @ -No Was critical care preformed (if so, how long)? @ -No Were there social determinants of health that impacted care today? How? (Homelessness, low income, unemployed, alcoholism, drug addiction, transportation, low edu. Level, literacy, decrease access to med. care, snf, rehab)? @ -No Was there de-escalation of care discussed even if they declined (Discuss DNR or withdrawal of care, Hospice)? DNR status @ -No What co-morbidities impacted this encounter? (DM, HTN, Smoking, COPD, CAD, Cancer, CVA, ARF, Chemo, Hep., AIDS, mental health diagnosis, sleep apnea, morbid obesity)? @ -None Was patient admitted / discharged? Hospital course, mention meds given and route, prescriptions, significant lab abnormalities, going to OR and other pertinent info. @ -Upon arrival patient seen and evaluated in room 8. Thorough history and physical exam was performed. IV access was established and laboratory studies were conducted. Gallbladder ultrasound and CT was performed which demonstrates acute cholecystitis. Patient does have elevated white blood cell count. He is initiated on antibiotics is given a fluid bolus for sepsis. Source of infection was identified at 1126. I did call and speak with Dr. Burton. He would like the patient to be admitted to medicine with heme-onc consults. He would like to obtain an MRCP first. I then spoke with Dr. Schultz for the admission Undiagnosed new problem with uncertain prognosis? @ -No Drug Therapy requiring intensive monitoring for toxicity (Heparin, Nitro, Insulin, Cardizem)? @ -No Were any procedures done? @ -No Diagnosis/symptom? @ -Acute abdominal pain, acute cholecystitis, acute leukocytosis, tachycardia Acute, or Chronic, or Acute on Chronic? @ -Acute Uncomplicated (without systemic symptoms) or Complicated (systemic symptoms)? @ -Complicated Side effects of treatment? @ -Allergic reaction Exacerbation, Progression, or Severe Exacerbation? @ -No Poses a threat to life or bodily function? How? (Chest pain, USA, CT, pneumonia, PE, COPD, DKA, ARF, appy, cholecystitis, CVA, Diverticulitis, Homicidal, Suicidal, threat to staff... and all critical care pts) @ -No - Lab Data Result diagrams: 12/21/24 02:53 12/21/24 02:53 Lab Results 12/16/24 12/16/24 12/16/24 Range/Units 10:27 10:27 10:27 WBC 17.11 H (4.50-10.00) 10*3/uL RBC 5.07 (4.40-5.60) 10*6/uL Hgb 14.3 (13.0-17.0) g/dL Hct 43.0 (39.6-50.0) % MCV 84.8 (80.0-97.0) fL MCH 28.2 (27.0-32.0) pg MCHC 33.3 (32.0-37.0) g/dL Plt Count 204 (140-440) 10*3/uL MPV 10.4 (9.5-12.2) fL Immature Gran % (Auto) 0.8 % Neutrophils % 87.5 % Lymphocytes % 2.6 % Monocytes % 8.6 % Eosinophils % 0.3 % Basophils % 0.2 % Immature Gran # 0.14 H (0.00-0.04) 10*3/uL Neutrophils # 14.95 H (1.80-7.70) 10*3/uL Lymphocytes # 0.45 L (0.90-5.00) 10*3/uL Monocytes # 1.48 H (0.20-1.00) 10*3/uL Eosinophils # 0.05 (0.04-0.35) 10*3/uL Basophils # 0.04 (0.00-0.10) 10*3/uL Sodium 135 L (137-145) mmol/L Potassium 4.0 (3.5-5.1) mmol/L Chloride 99 (98-107) mmol/L Carbon Dioxide 26 (22-30) mmol/L Anion Gap 10 mmol/L BUN 21 H (9-20) mg/dL Creatinine 0.77 (0.66-1.25) mg/dL Est GFR (CKD-EPI)AfAm >90 (>60 ml/min/1.73 sqM) Est GFR (CKD-EPI)NonAf >90 (>60 ml/min/1.73 sqM) Glucose 123 H (74-99) mg/dL Plasma Lactic Acid Tima 1.2 (0.7-2.0) mmol/L Calcium 8.9 (8.4-10.2) mg/dL Total Bilirubin 1.7 H (0.2-1.3) mg/dL AST 33 (17-59) U/L ALT 66 H (4-49) U/L Alkaline Phosphatase 103 (38-126) U/L Troponin I (0.000-0.034) ng/mL Total Protein 6.2 L (6.3-8.2) g/dL Albumin 3.4 L (3.5-5.0) g/dL Lipase 23 (23-300) U/L Urine Color Urine Appearance (Clear) Urine pH (5.0-8.0) Ur Specific [place] (1.001-1.035) Urine Protein (Negative) Urine Glucose (UA) (Negative) Urine Ketones (Negative) Urine Blood (Negative) Urine Nitrite (Negative) Urine Bilirubin (Negative) Urine Urobilinogen (<2.0) mg/dL Ur Leukocyte Esterase (Negative) Urine RBC (0-5) /hpf Urine WBC (0-5) /hpf Ur Squamous Epith Cells (0-4) /hpf Urine Bacteria (None) /hpf Urine Mucus (None) /hpf 12/16/24 12/16/24 Range/Units 10:27 12:19 WBC (4.50-10.00) 10*3/uL RBC (4.40-5.60) 10*6/uL Hgb (13.0-17.0) g/dL Hct (39.6-50.0) % MCV (80.0-97.0) fL MCH (27.0-32.0) pg MCHC (32.0-37.0) g/dL Plt Count (140-440) 10*3/uL MPV (9.5-12.2) fL Immature Gran % (Auto) % Neutrophils % % Lymphocytes % % Monocytes % % Eosinophils % % Basophils % % Immature Gran # (0.00-0.04) 10*3/uL Neutrophils # (1.80-7.70) 10*3/uL Lymphocytes # (0.90-5.00) 10*3/uL Monocytes # (0.20-1.00) 10*3/uL Eosinophils # (0.04-0.35) 10*3/uL Basophils # (0.00-0.10) 10*3/uL Sodium (137-145) mmol/L Potassium (3.5-5.1) mmol/L Chloride (98-107) mmol/L Carbon Dioxide (22-30) mmol/L Anion Gap mmol/L BUN (9-20) mg/dL Creatinine (0.66-1.25) mg/dL Est GFR (CKD-EPI)AfAm (>60 ml/min/1.73 sqM) Est GFR (CKD-EPI)NonAf (>60 ml/min/1.73 sqM) Glucose (74-99) mg/dL Plasma Lactic Acid Tima (0.7-2.0) mmol/L Calcium (8.4-10.2) mg/dL Total Bilirubin (0.2-1.3) mg/dL AST (17-59) U/L ALT (4-49) U/L Alkaline Phosphatase (38-126) U/L Troponin I <0.012 (0.000-0.034) ng/mL Total Protein (6.3-8.2) g/dL Albumin (3.5-5.0) g/dL Lipase (23-300) U/L Urine Color Yellow Urine Appearance Clear (Clear) Urine pH 6.5 (5.0-8.0) Ur Specific [place] 1.029 (1.001-1.035) Urine Protein 2+ H (Negative) Urine Glucose (UA) Negative (Negative) Urine Ketones Negative (Negative) Urine Blood Small H (Negative) Urine Nitrite Negative (Negative) Urine Bilirubin Negative (Negative) Urine Urobilinogen 3.0 (<2.0) mg/dL Ur Leukocyte Esterase Negative (Negative) Urine RBC 4 (0-5) /hpf Urine WBC 5 (0-5) /hpf Ur Squamous Epith Cells <1 (0-4) /hpf Urine Bacteria Rare H (None) /hpf Urine Mucus Moderate H (None) /hpf Disposition Clinical Impression: Acute cholecystitis, Cholelithiases, Leukocytosis, Tachycardia Disposition: ADMITTED IP TO THIS HOSP Condition: Stable Is patient prescribed a controlled substance at d/c from ED?: No Time of Disposition: 12:41 Decision to Admit Reason: Admit from EC Decision Date: 12/16/24 Decision Time: 12:41
[2024-12-16] MEDS ORDERED: NALOXONE 0.4 MG/ML 1 ML VIAL IV PRN (12:41)
[2024-12-16] MEDS: PIPERACILLIN-TAZOBACTAM 3.375 GM in SODIUM CHLORIDE 0.9% 100 ML IVPB ONE (12:58)
[2024-12-16] MEDS: SODIUM CHLORIDE 0.9% 1,000 ML IV SCH (12:58)
[2024-12-16] MEDS: SODIUM CHLORIDE 0.9% 1,000 ML IV ONE (12:59)
[2024-12-16 13:04] LABS: Appearance,Urine Clear (Clear); Bacteria,Urine Rare /hpf; Bilirubin,Urine Negative (Negative); Blood,Urine Small (Negative); Color,Urine Yellow; Glucose,Urine (UA) Negative (Negative); Ketones,Urine Negative (Negative); Leukocyte Esterase,Urine Negative (Negative); Mucus,Urine Moderate /hpf; Nitrite,Urine Negative (Negative); PH, Urine 6.5 (5.0-8.0); Protein,Urine 2+ (Negative); RBC,Urine 4 /hpf (0-5); Specific Gravity,Urine 1.029 (1.001-1.035); Squamous Epithelial Cell,Urine <1 /hpf (0-4); WBC,Urine 5 /hpf (0-5)
--- NOTE | 2024-12-16 15:24 | P.HPIM ---
History of Present Illness H&P Date: 12/16/24 Patient is a 59-year-old male with history of anxiety/depression, dyslipidemia, GERD, hypertension, COPD presenting with abdominal pain. He claims that his abdominal pain started Saturday, progressively worsened. He was mostly limited to right upper quadrant. He claims that he was also feeling chills, and had fever of 101 Fahrenheit. He also had nausea with vomiting x 2, no bowel movements in the last 3 days. 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 Denies any alcohol use, smoking or illicit drug use. No issues with anesthesia in the past. In the ED, temperature was 97.7, pulse 116, respiratory rate 18, blood pressure 118/80, saturating at 98% on room air. Gallbladder ultrasound showed CBD within normal limits 4 mm calculus in the gallbladder neck with acute cholecystitis, reactive inflammatory changes involving the hepatic flexure, small amount of free fluid in the pelvis, trace right pleural effusion. WBC 17.11, platelet 204, hemoglobin 14.3, creatinine 0.77, total bili 1.7 AST 33, ALT 66, ALP 103, troponin negative, lipase 23. She received 2 L of IV fluids in the ED, started on IV Zosyn. Surgery consulted. Concern for possible acute cholangitis. Pending GI recommendations. Patient being admitted for sepsis secondary to acute cholecystitis, possible cholangitis. Pertinent positives and negatives as discussed in HPI, a complete review of systems was performed and all other systems are negative. Patient seen and examined at bedside. Vital signs reviewed General: nontoxic, no distress, appears at stated age Derm: warm, dry Head: atraumatic, normocephalic, symmetric Eyes: EOMI, no lid lag, anicteric sclera, pupils equal round reactive to light ENT: Nose and ears atraumatic Neck: No thyromegaly, supple Mouth: no lip lesion, mucus membranes moist Cardiovascular: S1S2 reg, no murmur, no edema Lungs: clear to auscultation bilateral, no rhonchi, no rales, no wheeze, no accessory muscle use Abdominal: soft, tender to palpation in right upper quadrant, no guarding, no appreciable organomegaly Ext: no gross muscle atrophy, muscle strength muscle strength 5 out of 5 in all 4 extremities, no contractures Neuro: CN II-XII grossly intact Psych: Alert, oriented, appropriate affect Assessment/Plan: Active: Acute cholecystitis Possible cholangitis Hyperbilirubinemia Mild transaminitis - Continue normal saline at 130 cc an hour, Zosyn IV 3.375 g every 8 hours - Blood cultures pending - Continue n.p.o. - Surgery and GI following - MRCP pending History of hypertension - Hold amlodipine Chronic: Asthma, not in exacerbation Anxiety/depression GERD Hyperlipidemia The patient is admitted with an anticipated greater than 2 midnight stay as inpatient status for evaluation of acute cholecystitis. Surrogate decision-maker: Spouse CODE STATUS: Full code DVT prophylaxis: SCDs Anticipated discharge date: Pending clinical course Anticipated discharge place: Pending clinical course A total of 65 minutes was spent on the care of this complex patient more than 50% of the time was spent in counseling and care coordination. Past Medical History Past Medical History: Asthma, GERD/Reflux, Hyperlipidemia, Hypertension, Osteoarthritis (OA) Additional Past Medical History / Comment(s): GERD, recent difficulty for diarrhea. Occasional bleeding hemorrhoids, sciatic nerve pain, DDD (cervical), History of Any Multi-Drug Resistant Organisms: None Reported Past Surgical History: Orthopedic Surgery, Tonsillectomy Additional Past Surgical History / Comment(s): growth removed in scrotum at age 13, needle removed left foot, colonoscopy. RIGHT SHOULDER SURGERY Past Anesthesia/Blood Transfusion Reactions: No Reported Reaction Additional Past Anesthesia/Blood Transfusion Reaction / Comment(s): . Past Psychological History: Anxiety Smoking Status: Former smoker - Past Family History Father Family Medical History: Diabetes Mellitus, Renal Disease Additional Family Medical History / Comment(s): Obesity Mother Family Medical History: COPD Medications and Allergies Home Medications Medication Instructions Recorded Confirmed Type Citalopram Hydrobromide [CeleXA] 40 mg PO HS 08/22/16 12/16/24 History Simvastatin [Zocor] 20 mg PO DAILY 04/25/20 12/16/24 History amLODIPine BESYLATE [Norvasc] 2.5 mg PO DAILY 04/25/20 12/16/24 History Pantoprazole [Protonix] 40 mg PO BID 03/20/23 12/16/24 History Dicyclomine [Bentyl] 20 mg PO TID 03/22/23 12/16/24 History Budesonide/Formoterol Fumarate 2 puff INHALATION RT-BID 12/16/24 12/16/24 History [Symbicort 160-4.5 Mcg Inhaler] Celecoxib [CeleBREX] 200 mg PO BID PRN 12/16/24 12/16/24 History buPROPion XL [Wellbutrin XL] 300 mg PO HS 12/16/24 12/16/24 History busPIRone HCL 10 mg PO BID PRN 12/16/24 12/16/24 History Allergies Allergy/AdvReac Type Severity Reaction Status Date / Time No Known Allergies Allergy Verified 12/16/24 13:24 Physical Exam Vitals: Vital Signs Temp Pulse Resp BP Pulse Ox 12/16/24 12:56 99 18 110/83 94 L 12/16/24 08:55 97.7 F 116 H 18 118/80 98 Intake and Output 12/15/24 12/16/24 12/16/24 22:59 06:59 14:59 Other: Weight 108.862 kg Results CBC & Chem 7: 12/16/24 10:27 12/16/24 10:27 Labs: Abnormal Lab Results - Last 24 Hours (Table) 12/16/24 12/16/24 12/16/24 Range/Units 10:27 10:27 12:19 WBC 17.11 H (4.50-10.00) 10*3/uL Immature Gran # 0.14 H (0.00-0.04) 10*3/uL Neutrophils # 14.95 H (1.80-7.70) 10*3/uL Lymphocytes # 0.45 L (0.90-5.00) 10*3/uL Monocytes # 1.48 H (0.20-1.00) 10*3/uL Sodium 135 L (137-145) mmol/L BUN 21 H (9-20) mg/dL Glucose 123 H (74-99) mg/dL Total Bilirubin 1.7 H (0.2-1.3) mg/dL ALT 66 H (4-49) U/L Total Protein 6.2 L (6.3-8.2) g/dL Albumin 3.4 L (3.5-5.0) g/dL Urine Protein 2+ H (Negative) Urine Blood Small H (Negative) Urine Bacteria Rare H (None) /hpf Urine Mucus Moderate H (None) /hpf
--- NOTE | 2024-12-16 16:08 | P.CONS ---
History of Present Illness - Reason for Consult Consult date: 12/16/24 Acute Bebe lithiasis, elevated liver enzymes Requesting physician: Lolis Sanchez - Chief Complaint Abdominal pain - History of Present Illness This is a pleasant 59-year-old male with history of anxiety and depression, dyslipidemia, GERD, hypertension, and COPD who presented to the emergency department today with complaints of abdominal pain. He complaints most of his abdominal pain is in the right side of his abdomen worse in the right lower. Abdominal pain had started on Saturday and has progressively gotten worse. Reportedly having fever and chills. Nausea and vomiting. He came into the emergency department for further evaluation. Patient was afebrile on admission. Laboratory studies show leukocytosis with a WBC of 17.1, mildly elevated bilirubin at 1.7 AST 33 ALT 66 alkaline phosphatase 103 lipase 23. He underwent gallbladder ultrasound which reported as a suboptimal study secondary to patient's body habitus however does report possible distended gallbladder possibly full of sludge, CBD 0.5 cm. He did undergo a CT of the abdomen and pelvis reporting acute cholecystitis with calculus in gallbladder neck. Gastroenterology was consulted for elevated LFTs and cholelithiasis. General surgery is on consultation for cholecystitis. MRCP has been ordered from the general surgery group. Patient currently states pain is improved with pain medication, no emesis and is afebrile. States most of his pain is in his right lower abdomen but also in the right upper abdomen. Review of Systems REVIEW OF SYSTEMS: CARDIOPULMONARY: No chest pain or shortness of breath. Gastrointestinal: Abdominal pain associated with nausea and vomiting. No hematemesis, coffee-ground emesis. No rectal bleeding, or melena. Acid reflux. GENITOURINARY: No dysuria or hematuria. MUSCULOSKELETAL: Reports normal range of motion. SKIN: No rashes. No jaundice. ENDOCRINE: No chills, fevers. No excessive weight gain or loss. No polydipsia or polyuria. PSYCHIATRIC: Anxiety and depression. NEUROLOGY: No change in mental status. Denies dizziness, headache. ENT: Vision unremarkable. CONSTITUTIONAL: No recent weight loss. Fever and chills. Past Medical History Past Medical History: Asthma, GERD/Reflux, Hyperlipidemia, Hypertension, Osteoarthritis (OA) Additional Past Medical History / Comment(s): GERD, recent difficulty for diarrhea. Occasional bleeding hemorrhoids, sciatic nerve pain, DDD (cervical), History of Any Multi-Drug Resistant Organisms: None Reported Past Surgical History: Orthopedic Surgery, Tonsillectomy Additional Past Surgical History / Comment(s): growth removed in scrotum at age 13, needle removed left foot, colonoscopy. RIGHT SHOULDER SURGERY Past Anesthesia/Blood Transfusion Reactions: No Reported Reaction Additional Past Anesthesia/Blood Transfusion Reaction / Comm: . Past Psychological History: Anxiety Smoking Status: Former smoker - Past Family History Father Family Medical History: Diabetes Mellitus, Renal Disease Additional Family Medical History / Comment(s): Obesity Mother Family Medical History: COPD Medications and Allergies Home Medications Medication Instructions Recorded Confirmed Type Citalopram Hydrobromide [CeleXA] 40 mg PO HS 08/22/16 12/16/24 History Simvastatin [Zocor] 20 mg PO DAILY 04/25/20 12/16/24 History amLODIPine BESYLATE [Norvasc] 2.5 mg PO DAILY 04/25/20 12/16/24 History Pantoprazole [Protonix] 40 mg PO BID 03/20/23 12/16/24 History Dicyclomine [Bentyl] 20 mg PO TID 03/22/23 12/16/24 History Budesonide/Formoterol Fumarate 2 puff INHALATION RT-BID 12/16/24 12/16/24 History [Symbicort 160-4.5 Mcg Inhaler] Celecoxib [CeleBREX] 200 mg PO BID PRN 12/16/24 12/16/24 History buPROPion XL [Wellbutrin XL] 300 mg PO HS 12/16/24 12/16/24 History busPIRone HCL 10 mg PO BID PRN 12/16/24 12/16/24 History Allergies Allergy/AdvReac Type Severity Reaction Status Date / Time No Known Allergies Allergy Verified 12/16/24 13:24 Physical Exam Vitals: Vital Signs Temp Pulse Resp BP Pulse Ox 12/16/24 12:56 99 18 110/83 94 L 12/16/24 08:55 97.7 F 116 H 18 118/80 98 Intake and Output 12/15/24 12/16/24 12/16/24 22:59 06:59 14:59 Other: Weight 108.862 kg General appearance: The patient is alert, oriented, appears in no acute distress. HET: Head is normocephalic and atraumatic. Conjunctiva pink. Sclera anicteric. Neck: Supple without lymphadenopathy. Trachea midline. Heart: Regular. Lungs: Equal expansion, normal respiratory effort. Abdomen: Soft, right upper quadrant tenderness with palpation, nondistended. Skin: No rashes. No jaundice. Extremities: Normal skin color and turgor. No pedal edema. Neurological: No focal deficits. Alert and oriented x3. Results CBC & Chem 7: 12/16/24 10:27 12/16/24 10:27 Labs: Abnormal Lab Results - Last 24 Hours (Table) 12/16/24 12/16/24 12/16/24 Range/Units 10:27 10: 12:19 WBC 17.11 H (4.50-10.00) 10*3/uL Immature Gran # 0.14 H (0.00-0.04) 10*3/uL Neutrophils # 14.95 H (1.80-7.70) 10*3/uL Lymphocytes # 0.45 L (0.90-5.00) 10*3/uL Monocytes # 1.48 H (0.20-1.00) 10*3/uL Sodium 135 L (137-145) mmol/L BUN 21 H (9-20) mg/dL Glucose 123 H (74-99) mg/dL Total Bilirubin 1.7 H (0.2-1.3) mg/dL ALT 66 H (4-49) U/L Total Protein 6.2 L (6.3-8.2) g/dL Albumin 3.4 L (3.5-5.0) g/dL Urine Protein 2+ H (Negative) Urine Blood Small H (Negative) Urine Bacteria Rare H (None) /hpf Urine Mucus Moderate H (None) /hpf Comments: CT abdomen pelvis with contrast reports acute cholecystitis with a 4 mm calculus in the gallbladder neck. Reactive inflammatory changes involving the hepatic flexure. Small amount of free fluid in the pelvis. Trace right pleural effusion. Gallbladder ultrasound reports suboptimal study. CT and ultrasound findings are consistent with acute cholecystitis. Surgical evaluation is advised. Assessment and Plan (1) Acute cholecystitis Narrative/Plan: 5-year-old male presenting with right upper quadrant pain with CT and ultrasound evidence of acute cholecystitis, reported calculus in the gallbladder neck with mildly elevated total bilirubin and ALT likely reactive to acute cholecystitis. Patient does not appear to have choledochal lithiasis, there is no evidence on ultrasound or CT for biliary dilation. Mildly elevated bilirubin with mild e levation of ALT no elevation of alkaline phosphatase likely not a cholestatic pattern. MRCP has been ordered by the surgical team. Will await imaging. Repeat labs. And continue with recommendations from general surgery. Current Visit: Yes Status: Acute Code(s): K81.0 - ACUTE CHOLECYSTITIS SNOMED Code(s): 02415439 (2) Elevated LFTs Current Visit: Yes Status: Acute Code(s): R79.89 - OTHER SPECIFIED ABNORMAL FINDINGS OF BLOOD CHEMISTRY SNOMED Code(s): 785321754 Plan: 1. Continue symptomatic and supportive care 2. Keep n.p.o. 3. MRCP pending 4. Protonix 40 mg daily for GI prophylaxis 5. Antiemetics as needed 6. Pain medication per primary medical team 7. Repeat CBC, CMP, INR tomorrow 8. Continue antibiotics as ordered 9. Continue with recommendations from general surgery 10. Further recommendations forthcoming based on clinical course Thank you for this consultation, we will continue to follow. Dr. Mingo Lozada I agree with the dictator's note, documented as a scribe by Cary Scott.
[2024-12-16] MEDS ORDERED: KETOROLAC 15 MG/ML 1 ML VIAL IM PRN (19:05)
[2024-12-16] MEDS: PIPERACILLIN-TAZOBACTAM 3.375 GM in SODIUM CHLORIDE 0.9% 100 ML IVPB SCH (20:13)
[2024-12-16] MEDS: CITALOPRAM HYDROBROMIDE 20 MG TAB PO SCH (20:13)
[2024-12-16] MEDS: busPIRone HCl 10 MG TAB PO PRN (20:13)
[2024-12-16] MEDS: buPROPion XL 300 MG TAB.ER.24H PO SCH (20:13)
[2024-12-16] MEDS: PANTOPRAZOLE 40 MG TABLET PO SCH (20:13)
[2024-12-16] MEDS: SYMBICORT 160-4.5 MCG INHALER INHALATION SCH (20:45)
--- NOTE | 2024-12-16 21:40 | P.GSCN ---
History of Present Illness Consult date: 12/16/24 History of present illness: This is a pleasant 59-year-old male who presented to the emergency department today with complaints of abdominal pain. The pain has been going on for the past 2 days and has been worsening over that period. Per patient's , he also had mild febrile episodes at home. He states that the pain is mainly on the right side. He also is complaining of nausea and vomiting. On workup, he is found to have leukocytosis of 17.1 and mildly elevated bilirubin at 1.7. Ultrasound was performed which does report distended gallbladder possibly full of sludge. CT of the abdomen concerning for acute cholecystitis with calculus in the gallbladder neck. Review of Systems All systems: negative Past Medical History Past Medical History: Asthma, GERD/Reflux, Hyperlipidemia, Hypertension, Osteoarthritis (OA) Additional Past Medical History / Comment(s): GERD, recent difficulty for diarrhea. Occasional bleeding hemorrhoids, sciatic nerve pain, DDD (cervical), History of Any Multi-Drug Resistant Organisms: None Reported Past Surgical History: Orthopedic Surgery, Tonsillectomy Additional Past Surgical History / Comment(s): growth removed in scrotum at age 13, needle removed left foot, colonoscopy. RIGHT SHOULDER SURGERY Past Anesthesia/Blood Transfusion Reactions: No Reported Reaction Additional Past Anesthesia/Blood Transfusion Reaction / Comm: . Past Psychological History: Anxiety Smoking Status: Former smoker - Past Family History Father Family Medical History: Diabetes Mellitus, Renal Disease Additional Family Medical History / Comment(s): Obesity Mother Family Medical History: COPD Medications and Allergies Home Medications Medication Instructions Recorded Confirmed Type Citalopram Hydrobromide [CeleXA] 40 mg PO HS 08/22/16 12/16/24 History Simvastatin [Zocor] 20 mg PO DAILY 04/25/20 12/16/24 History amLODIPine BESYLATE [Norvasc] 2.5 mg PO DAILY 04/25/20 12/16/24 History Pantoprazole [Protonix] 40 mg PO BID 03/20/23 12/16/24 History Dicyclomine [Bentyl] 20 mg PO TID 03/22/23 12/16/24 History Budesonide/Formoterol Fumarate 2 puff INHALATION RT-BID 12/16/24 12/16/24 History [Symbicort 160-4.5 Mcg Inhaler] Celecoxib [CeleBREX] 200 mg PO BID PRN 12/16/24 12/16/24 History buPROPion XL [Wellbutrin XL] 300 mg PO HS 12/16/24 12/16/24 History busPIRone HCL 10 mg PO BID PRN 12/16/24 12/16/24 History Allergies Allergy/AdvReac Type Severity Reaction Status Date / Time No Known Allergies Allergy Verified 12/16/24 13:24 Surgical - Exam Osteopathic Statement: *. No significant issues noted on an osteopathic structural exam other than those noted in the History and Physical/Consult. Vital Signs Temp Pulse Resp BP Pulse Ox 97.7 F 116 H 18 118/80 98 12/16/24 08:55 12/16/24 08:55 12/16/24 08:55 12/16/24 08:55 12/16/24 08:55 - General well nourished, no distress - Eyes normal ocular movement - Neck trachea midline - Abdomen Soft, tender to palpation in the right upper quadrant, nondistended, no rebound or guarding - Psychiatric oriented to time, oriented to person, oriented to place Results - Labs 12/16/24 10:27 12/16/24 10:27 Abnormal Lab Results - Last 24 Hours (Table) 12/16/24 12/16/24 12/16/24 Range/Units 10:27 10:27 12:19 WBC 17.11 H (4.50-10.00) 10*3/uL Immature Gran # 0.14 H (0.00-0.04) 10*3/uL Neutrophils # 14.95 H (1.80-7.70) 10*3/uL Lymphocytes # 0.45 L (0.90-5.00) 10*3/uL Monocytes # 1.48 H (0.20-1.00) 10*3/uL Sodium 135 L (137-145) mmol/L BUN 21 H (9-20) mg/dL Glucose 123 H (74-99) mg/dL Total Bilirubin 1.7 H (0.2-1.3) mg/dL ALT 66 H (4-49) U/L Total Protein 6.2 L (6.3-8.2) g/dL Albumin 3.4 L (3.5-5.0) g/dL Urine Protein 2+ H (Negative) Urine Blood Small H (Negative) Urine Bacteria Rare H (None) /hpf Urine Mucus Moderate H (None) /hpf Diabetes panel 12/16/24 Range/Units 10:27 Sodium 135 L (137-145) mmol/L Potassium 4.0 (3.5-5.1) mmol/L Chloride 99 (98-107) mmol/L Carbon Dioxide 26 (22-30) mmol/L BUN 21 H (9-20) mg/dL Creatinine 0.77 (0.66-1.25) mg/dL Glucose 123 H (74-99) mg/dL Calcium 8.9 (8.4-10.2) mg/dL AST 33 (17-59) U/L ALT 66 H (4-49) U/L Alkaline Phosphatase 103 (38-126) U/L Total Protein 6.2 L (6.3-8.2) g/dL Albumin 3.4 L (3.5-5.0) g/dL Calcium panel 12/16/24 Range/Units 10:27 Calcium 8.9 (8.4-10.2) mg/dL Albumin 3.4 L (3.5-5.0) g/dL Pituitary panel 12/16/24 Range/Units 10:27 Sodium 135 L (137-145) mmol/L Potassium 4.0 (3.5-5.1) mmol/L Chloride 99 (98-107) mmol/L Carbon Dioxide 26 (22-30) mmol/L BUN 21 H (9-20) mg/dL Creatinine 0.77 (0.66-1.25) mg/dL Glucose 123 H (74-99) mg/dL Calcium 8.9 (8.4-10.2) mg/dL Adrenal panel 12/16/24 Range/Units 10:27 Sodium 135 L (137-145) mmol/L Potassium 4.0 (3.5-5.1) mmol/L Chloride 99 (98-107) mmol/L Carbon Dioxide 26 (22-30) mmol/L BUN 21 H (9-20) mg/dL Creatinine 0.77 (0.66-1.25) mg/dL Glucose 123 H (74-99) mg/dL Calcium 8.9 (8.4-10.2) mg/dL Total Bilirubin 1.7 H (0.2-1.3) mg/dL AST 33 (17-59) U/L ALT 66 H (4-49) U/L Alkaline Phosphatase 103 (38-126) U/L Total Protein 6.2 L (6.3-8.2) g/dL Albumin 3.4 L (3.5-5.0) g/dL Assessment and Plan Plan: 59-year-old male with concern for acute cholecystitis. Patient started on IV antibiotics. Keep patient NPO. Based on mild elevation of total bilirubin, we will obtain MRCP for further evaluation prior to surgical intervention. This was explained to the patient and patient's . They are in agreement with this plan.
[2024-12-17] MEDS: KETOROLAC 15 MG/ML 1 ML VIAL IVP PRN (03:14)
[2024-12-17 05:32] LABS: Basophils # (A) 0.02 10*3/uL (0.00-0.10); Basophils % (A) 0.2 %; Eosinophils # (A) 0.25 10*3/uL (0.04-0.35); Eosinophils % (A) 2.1 %; HCT 36.4 % (39.6-50.0); HGB 11.8 g/dL (13.0-17.0); Lymphocytes # (A) 0.43 10*3/uL (0.90-5.00); Lymphocytes % (A) 3.7 %; MCH 28.2 pg (27.0-32.0); MCHC 32.4 g/dL (32.0-37.0); MCV 87.1 fL (80.0-97.0); Mean Platelet Volume 10.5 fL (9.5-12.2); Monocytes # (A) 1.26 10*3/uL (0.20-1.00); Monocytes % (A) 10.7 %; Neutrophils # (A) 9.73 10*3/uL (1.80-7.70); Neutrophils % (A) 82.5 %; Platelet Count 182 10*3/uL (140-440); RBC 4.18 10*6/uL (4.40-5.60); RDW 13.9 % (11.5-14.5); WBC 11.78 10*3/uL (4.50-10.00)
[2024-12-17 06:09] LABS: ALT 66 U/L (4-49); AST 44 U/L (17-59); African American GFR (CKD) >90 (>60 ml/min/1.73 sqM); Albumin 2.8 g/dL (3.5-5.0); Albumin/Globulin Ratio 1.2; Alkaline Phosphatase 137 U/L (38-126); Anion Gap 11 mmol/L; Blood Urea Nitrogen 20 mg/dL (9-20); Calcium 8.6 mg/dL (8.4-10.2); Carbon Dioxide 24 mmol/L (22-30); Chloride 101 mmol/L (98-107); Globulin 2.4 g/dL; Glucose 96 mg/dL (74-99); Non-African American GFR(CKD) >90 (>60 ml/min/1.73 sqM); Sodium 136 mmol/L (137-145); Total Bilirubin 1.8 mg/dL (0.2-1.3); Total Protein 5.2 g/dL (6.3-8.2)
[2024-12-17] MEDS: ATORVASTATIN 10 MG TAB PO SCH (08:45)
[2024-12-17] MEDS: LORazepam 1 MG/0.5 ML VIAL IV STA (10:42)
--- NOTE | 2024-12-17 11:46 | MR ---
EXAMINATION TYPE: MR MRCP DATE OF EXAM: 12/17/2024 11:31 AM COMPARISON: CT abdomen and pelvis one day earlier CLINICAL INDICATION: Male, 59 years old with history of abdominal pain, cholecystitis, Abdomen pain IV Contrast: cc (None if empty) Standard multiplanar, multisequence MRI departmental protocol Multiplanar, multisequence images of the abdomen were acquired without contrast. Diffusion weighted i maging was performed. Thin and thick slice MRCP imaging performed on independent workstation. FINDINGS: Liver/gallbladder/pancreas/biliary system: Gallbladder redemonstrates edematous wall thickening. No i ntraluminal gallstones are seen. No intrahepatic or extrahepatic biliary dilatation is noted. And cys tic duct is not well-visualized. Common bile duct measures up to 4 mm. There is some motion compromis e identified making evaluation suboptimal. Liver is normal in size with 7 mm simple appearing thin-wa lled cyst in the right hepatic dome coronal image 23. There is slightly larger 1.3 cm simple thin-wal led cyst anterior left hepatic lobe coronal image 6. Pancreas shows no obvious mass or ductal dilatat ion. Other: Lung bases are grossly clear. Both adrenal glands and spleen appear within normal limits. No h ydronephrosis is evident bilaterally. There is a 7 mm simple appearing thin-walled cyst from the uppe r pole of the left kidney. No abnormal bowel dilatation. No AAA. Osseous structures are intact. IMPRESSION: MRI findings suggestive of acute cholecystitis are redemonstrated. Suboptimal evaluation of the cysti c duct and portions of the common bile duct. Visualized portion of common bile duct is not dilated. N o definitive internal gallstones in gallbladder. Cannot confirm or exclude tiny stone in the gallblad gayatri neck. [facility], , 12/17/2024 11:43 AM
--- NOTE | 2024-12-17 12:58 | P.PN ---
Subjective Progress Note Date: 12/17/24 SURGICAL PROGRESS NOTE CHIEF COMPLAINT: Acute cholecystitis HISTORY OF PRESENT ILLNESS: Patient continues to have right upper quadrant abdominal pain and nausea. Medications are helping. MRCP had reported MR findings suggestive of acute cholecystitis. Suboptimal evaluation of the cystic duct and portions of the common bile duct. Visualized portion of common bile duct is not dilated. Afebrile. WBC is down from 17-11.78 total bilirubin is 1.8 AST 44 ALT 66 alk phos 137 PHYSICAL EXAM: VITAL SIGNS: Reviewed. GENERAL: Well-developed in no acute distress. HEENT: No sclera icterus. Extraocular movements grossly intact. Moist buccal mucosa. Head is atraumatic, normocephalic. ABDOMEN: Soft. Nondistended. Tenderness palpation right upper quadrant NEUROLOGIC: Alert and oriented. Cranial nerves II through XII grossly intact. ASSESSMENT: 1. Acute cholecystitis 2. Mildly elevated total bilirubin PLAN: - Patient scheduled for robotic cholecystectomy tomorrow with Dr. Burton - Clear liquid diet today - N.p.o. after midnight - Continue antibiotics - Continue supportive care Physician [facility] note has been reviewed by physician. Signing provider agrees with the documented findings, assessment, and plan of care. Attestation Patient seen and examined at bedside. Continues to have right upper quadrant abdominal pain that is somewhat improved during his admission. MRCP completed with no obvious finding of choledocholithiasis. Total bilirubin is 1.8. GI is following with no plans for intervention at this time. Plan for robotic cholecystectomy tomorrow. Clear liquid diet today and n.p.o. after midnight. Continue IV antibiotics. Nicole Burton, Objective - Vital Signs Vital signs: Vital Signs Temp 98.3 F 12/17/24 07:00 Pulse 102 H 12/17/24 07:00 Resp 17 12/17/24 07:00 BP 115/72 12/17/24 07:00 Pulse Ox 96 12/17/24 07:00 FiO2 Intake & Output 12/16/24 12/17/24 12/17/24 18:59 06:59 18:59 Intake Total 0 500 Balance 0 500 Weight 108.862 kg Intake: Oral 0 500 Other: # Voids 2 2 - Labs CBC & Chem 7: 12/17/24 04:57 12/17/24 04:57 Labs: Abnormal Lab Results - Last 24 Hours (Table) 12/16/24 12/17/24 12/17/24 Range/Units 12:19 04:57 04:57 WBC 11.78 H (4.50-10.00) 10*3/uL RBC 4.18 L (4.40-5.60) 10*6/uL Hgb 11.8 L (13.0-17.0) g/dL Hct 36.4 L (39.6-50.0) % Immature Gran # 0.09 H (0.00-0.04) 10*3/uL Neutrophils # 9.73 H (1.80-7.70) 10*3/uL Lymphocytes # 0.43 L (0.90-5.00) 10*3/uL Monocytes # 1.26 H (0.20-1.00) 10*3/uL Sodium 136 L (137-145) mmol/L Total Bilirubin 1.8 H (0.2-1.3) mg/dL ALT 66 H (4-49) U/L Alkaline Phosphatase 137 H (38-126) U/L Total Protein 5.2 L (6.3-8.2) g/dL Albumin 2.8 L (3.5-5.0) g/dL Urine Protein 2+ H (Negative) Urine Blood Small H (Negative) Urine Bacteria Rare H (None) /hpf Urine Mucus Moderate H (None) /hpf
--- NOTE | 2024-12-17 14:03 | P.PN ---
Subjective Progress Note Date: 12/17/24 Principal diagnosis: Acute cholecystitis This is a pleasant 59-year-old male with history of anxiety and depression, dyslipidemia, GERD, hypertension, and COPD who presented to the emergency department today with complaints of abdominal pain. He complaints most of his abdominal pain is in the right side of his abdomen worse in the right lower. Abdominal pain had started on Saturday and has progressively gotten worse. Reportedly having fever and chills. Nausea and vomiting. He came into the emergency department for further evaluation. Patient was afebrile on admission. Laboratory studies show leukocytosis with a WBC of 17.1, mildly elevated bilirubin at 1.7 AST 33 ALT 66 alkaline phosphatase 103 lipase 23. He underwent gallbladder ultrasound which reported as a suboptimal study secondary to patient's body habitus however does report possible distended gallbladder possibly full of sludge, CBD 0.5 cm. He did undergo a CT of the abdomen and pelvis reporting acute cholecystitis with calculus in gallbladder neck. Gastroenterology was consulted for elevated LFTs and cholelithiasis. General surgery is on consultation for cholecystitis. MRCP has been ordered from the general surgery group. Patient currently states pain is improved with pain medication, no emesis and is afebrile. States most of his pain is in his right lower abdomen but also in the right upper abdomen. 12/17/2024 Patient seen and examined as a follow-up. States abdominal pain is improved. He is using Toradol with good pain relief. States he still has some of that discomfort into his back. No nausea or vomiting. Scheduled for MRCP today which stated findings suggestive of acute cholecystitis redemonstrated. Suboptimal evaluation of the cystic duct and portions of the common bile duct. Visualized portion of common bile duct not dilated. No definitive internal gallstones in the gallbladder. Patient is afebrile. Leukocytosis improving. He remains on IV antibiotics. Total bilirubin 1.8 AST 44 ALT 66 alkaline phosphatase 137 Objective - Vital Signs Vital signs: Vital Signs Temp 98.3 F 12/17/24 07:00 Pulse 102 H 12/17/24 07:00 Resp 17 12/17/24 07:00 BP 115/72 12/17/24 07:00 Pulse Ox 96 12/17/24 07:00 FiO2 Intake & Output 12/16/24 12/17/24 12/17/24 18:59 06:59 18:59 Intake Total 0 500 Balance 0 500 Weight 108.862 kg Intake: Oral 0 500 Other: # Voids 2 2 - Exam General appearance: The patient is alert, oriented, appears in no acute distress. HET: Head is normocephalic and atraumatic. Conjunctiva pink. Sclera anicteric. Neck: Supple without lymphadenopathy. Abdomen: Soft, right upper quadrant tenderness, nondistended. Extremities: Normal skin color and turgor. No pedal edema Skin: No rashes, no jaundice Neurological: No focal deficits. Alert and oriented. - Labs CBC & Chem 7: 12/17/24 04:57 12/17/24 04:57 Labs: Abnormal Lab Results - Last 24 Hours (Table) 12/16/24 12/17/24 12/17/24 Range/Units 12:19 04:57 04:57 WBC 11.78 H (4.50-10.00) 10*3/uL RBC 4.18 L (4.40-5.60) 10*6/uL Hgb 11.8 L (13.0-17.0) g/dL Hct 36.4 L (39.6-50.0) % Immature Gran # 0.09 H (0.00-0.04) 10*3/uL Neutrophils # 9.73 H (1.80-7.70) 10*3/uL Lymphocytes # 0.43 L (0.90-5.00) 10*3/uL Monocytes # 1.26 H (0.20-1.00) 10*3/uL Sodium 136 L (137-145) mmol/L Total Bilirubin 1.8 H (0.2-1.3) mg/dL ALT 66 H (4-49) U/L Alkaline Phosphatase 137 H (38-126) U/L Total Protein 5.2 L (6.3-8.2) g/dL Albumin 2.8 L (3.5-5.0) g/dL Urine Protein 2+ H (Negative) Urine Blood Small H (Negative) Urine Bacteria Rare H (None) /hpf Urine Mucus Moderate H (None) /hpf Assessment and Plan (1) Acute cholecystitis Narrative/Plan: 5-year-old male presenting with right upper quadrant pain with CT and ultrasound evidence of acute cholecystitis, reported calculus in the gallbladder neck with mildly elevated total bilirubin and ALT likely reactive to acute cholecystitis. Patient does not appear to have choledochal lithiasis, there is no evidence on ultrasound or CT for biliary dilation. Mildly elevated bilirubin with mild elevation of ALT no elevation of alkaline phosphatase likely not a cholestatic pattern. MRCP has been ordered by the surgical team. Will await imaging. Repeat labs. And continue with recommendations from general surgery. Current Visit: Yes Status: Acute Code(s): K81.0 - ACUTE CHOLECYSTITIS SNOMED Code(s): 32567890 (2) Elevated LFTs Narrative/Plan: Elevated LFTs likely reactive to acute cholecystitis. MRCP is not showing evidence of cholelithiasis or choledocholithiasis. Current Visit: Yes Status: Acute Code(s): R79.89 - OTHER SPECIFIED ABNORMAL FINDINGS OF BLOOD CHEMISTRY SNOMED Code(s): 461556789 Plan: 1. Continue symptomatic and supportive care 2. MRCP findings discussed with general surgery. No indication for ERCP at this time. 3. Clear liquid diet, n.p.o. after midnight 4. Protonix 40 mg daily for GI prophylaxis 5. Antiemetics as needed 6. Pain medication per primary medical team 7. Daily CBC, CMP 8. Continue antibiotics as ordered 9. Continue with recommendations from general surgery Thank you for this consultation, we will continue to follow. Dr. Mingo Lozada I agree with the dictator's note, documented as a scribe by Cary Scott.
--- NOTE | 2024-12-17 17:07 | P.PN ---
Subjective Progress Note Date: 12/17/24 Hospital course: Patient is a pleasant 59-year-old male with a past COPD not home oxygen dependent, GERD, anxiety with depression. He presented to the hospital on 12/16/2024 secondary to abdominal pain/discomfort accompanied by nausea and vomiting. Upon arrival to our facility, patient underwent evaluation in the emergency department.. Vital signs upon arrival show blood pressure 118/80, heart rate 116, respiratory rate 18, temp 97.7 F, and SpO2 of 98% on room air. EKG completed showing sinus tachycardia 103 bpm. Labs completed and reviewed. CBC showing leukocytosis with WBC count of 17.11. BMP showing elevated BUN of 21 and blood glucose of 123. Lactic acid was 1.2. Liver profile showed elevated total bili of 1.7 and ALT of 66. Troponin was negative at less than 0. 012. Lipase 23. CT abdomen and pelvis showing acute cholecystitis with a 4 mm calculus in the gallbladder neck, nearby reactive inflammatory changes involving the hepatic flexure and small amount of free fluid in the pelvis. Patient was admitted under services with consultation to gastroenterology to rule out choledocholithiasis and to general surgery for acute cholecystitis. Physical exam: Patient seen and fully evaluated at bedside this morning. He reports continued pain right upper quadrant but denies any further episodes of nausea or vomiting stating currently controlled with medication regimen. Patient awaiting to be taken down for MRCP later this morning. Vital signs reviewed and stable. General: Nontoxic, no distress and appears stated age. Derm: Skin warm and dry, normal coloration for ethnicity. Head: Atraumatic, normocephalic and symmetric. Eyes: EOM's intact, no lid lag, and anicteric sclera Mouth: no lip lesions, mucus membranes moist Cardiovascular: regular rate and rhythm with normal S1S2, no murmur, positive posterior tibial pulses bilaterally, and cap refill < 2 seconds. Lungs: Respirations even, regular, and unlabored on room air. Lungs CTA bilaterally, no rhonchi, no rales, no wheezing, and no accessory muscle usage. Abdominal: soft, tenderness upon palpation right upper quadrant, no guarding, no appreciable organomegaly Ext: ROM intact. No gross muscle atrophy, no edema, no contractures Neuro: Speech clear, face symmetrical and CN II-XII grossly intact with no noted focal neuro deficits Psych: Alert and oriented to person, place, time, and situation. Appropriate and pleasant affect. Assessment and Plan of Care: Acute cholecystitis Hyperbilirubinemia with transaminitis, rule out cholangitis vs choledocholithiasis -General Surgery following, discussed plan of care in detail with general surgery PA. -Gastroenterology following, discussed plan of care in detail with gastroenterology CUSTOMER SUPPORT ASSOCIATE. - N.p.o. pending completion MRCP later this morning, diet to be advanced per general surgery/gastroenterology team. -Continue IV antibiotics with Zosyn 3.375 g every 8 hours. -Gentle IV fluid hydration with 0.9% normal saline at 130 cc/h, may discontinue once diet is advanced. -Continue symptomatic care and pain management Toradol 15 mg IVP every 6 hours as needed for pain and Zofran 4 mg IVP every 8 hours as needed for nausea or vomiting. -GI prophylaxis with Protonix 40 mg twice daily. Hypertension -Monitor vital signs and continue daily medication regimen with amlodipine 2.5 mg daily. Hyperlipidemia -At this time we continue atorvastatin 10 mg daily, if transaminitis worsens will hold. Anxiety with depression -Continue Wellbutrin XL 300 mg nightly, Celexa 40 mg nightly, and BuSpar 10 mg twice daily as needed for anxiety. Data and imaging reviewed: -Vital signs reviewed. Blood pressure 115/72, heart rate 102, respiratory rate 17, temp 98.3 F, and SpO2 of 96% on room air. -Morning labs reviewed. CBC showing improvement of leukocytosis with WBC count decreasing from 17.11 down to 11.78. Hemoglobin also decreasing but stable at 11.8. BMP unremarkable. Blood glucose 96. Liver profile showing hyperbilirubinemia with total bili 1.8, AST of 44, ALT of 66, and alkaline phosphatase of 137. CODE STATUS full code DVT prophylaxis: SCDs Discussed with: Patient, RN, gastroenterology CUSTOMER SUPPORT ASSOCIATE, and general surgery PA Anticipated discharge date: Pending clinical course Anticipated discharge place: Home Patient was seen independently by Nurse Pracitioner. This document was prepared using [employer] dictation software. Please allow for errors in screen printing press operator, while rare they do occur. Oscar Abad NP rendered care for this patient independently, reviewed the findings and plan as documented in the note above and agree with plan. I did not physically speak with or examine the patient on this date. Objective - Vital Signs Vital signs: Vital Signs Temp 99.2 F 12/17/24 00:50 Pulse 113 H 12/17/24 00:50 Resp 16 12/17/24 00:50 BP 113/71 12/17/24 00:50 Pulse Ox 95 12/17/24 00:50 FiO2 Intake & Output 12/16/24 12/17/24 12/17/24 18:59 06:59 18:59 Intake Total 0 500 Balance 0 500 Weight 108.862 kg Intake: Oral 0 500 Other: # Voids 2 2 - Labs CBC & Chem 7: 12/17/24 04:57 12/17/24 04:57 Labs: Abnormal Lab Results - Last 24 Hours (Table) 12/16/24 12/16/24 12/16/24 Range/Units 10:27 10:27 12:19 WBC 17.11 H (4.50-10.00) 10*3/uL RBC (4.40-5.60) 10*6/uL Hgb (13.0-17.0) g/dL Hct (39.6-50.0) % Immature Gran # 0.14 H (0.00-0.04) 10*3/uL Neutrophils # 14.95 H (1.80-7.70) 10*3/uL Lymphocytes # 0.45 L (0.90-5.00) 10*3/uL Monocytes # 1.48 H (0.20-1.00) 10*3/uL Sodium 135 L (137-145) mmol/L BUN 21 H (9-20) mg/dL Glucose 123 H (74-99) mg/dL Total Bilirubin 1.7 H (0.2-1.3) mg/dL ALT 66 H (4-49) U/L Alkaline Phosphatase (38-126) U/L Total Protein 6.2 L (6.3-8.2) g/dL Albumin 3.4 L (3.5-5.0) g/dL Urine Protein 2+ H (Negative) Urine Blood Small H (Negative) Urine Bacteria Rare H (None) /hpf Urine Mucus Moderate H (None) /hpf 12/17/24 12/17/24 Range/Units 04:57 04:57 WBC 11.78 H (4.50-10.00) 10*3/uL RBC 4.18 L (4.40-5.60) 10*6/uL Hgb 11.8 L (13.0-17.0) g/dL Hct 36.4 L (39.6-50.0) % Immature Gran # 0.09 H (0.00-0.04) 10*3/uL Neutrophils # 9.73 H (1.80-7.70) 10*3/uL Lymphocytes # 0.43 L (0.90-5.00) 10*3/uL Monocytes # 1.26 H (0.20-1.00) 10*3/uL Sodium 136 L (137-145) mmol/L BUN (9-20) mg/dL Glucose (74-99) mg/dL Total Bilirubin 1.8 H (0.2-1.3) mg/dL ALT 66 H (4-49) U/L Alkaline Phosphatase 137 H (38-126) U/L Total Protein 5.2 L (6.3-8.2) g/dL Albumin 2.8 L (3.5-5.0) g/dL Urine Protein (Negative) Urine Blood (Negative) Urine Bacteria (None) /hpf Urine Mucus (None) /hpf
[2024-12-18 08:20] LABS: Basophils # (A) 0.02 X 10*3/uL (0.00-0.10); Basophils % (A) 0.2 %; Eosinophils % (A) 2.6 %; HCT 32.2 % (39.6-50.0); HGB 10.3 g/dL (13.0-17.0); Lymphocytes # (A) 0.47 X 10*3/uL (0.90-5.00); Lymphocytes % (A) 4.1 %; MCH 27.5 pg (27.0-32.0); MCV 85.9 FL (80.0-97.0); Mean Platelet Volume 11.6 FL (9.5-12.2); Monocytes # (A) 1.47 X 10*3/uL (0.20-1.00); NRBC Per 100 WBC 0 X 10*3/uL (0.00-0.01); Neutrophils # (A) 9.04 X 10*3/uL (1.80-7.70); Neutrophils % (A) 79.7 %; Platelet Count 205 X 10*3/uL (140-440); RBC 3.75 X 10*6/uL (4.40-5.60); WBC 11.35 X 10*3/uL (4.50-10.00)
[2024-12-18 08:26] LABS: ALT 99 U/L (10-49); AST 70 U/L (14-35); Albumin/Globulin Ratio 1.43 Ratio (1.60-3.17); Alkaline Phosphatase 262 U/L (41-126); BUN/Creat Ratio 22.12 Ratio (12.00-20.00); Blood Urea Nitrogen 17.7 mg/dL (9.0-27.0); Calcium 8.1 mg/dL (8.7-10.3); Carbon Dioxide 23.3 mmol/L (21.6-31.8); Chloride 105 mmol/L (96-109); Globulin 2.1 g/dL (1.6-3.3); Glucose 108 mg/dL (70-110); Potassium 3.7 mmol/L (3.5-5.5); Sodium 137 mmol/L (135-145); Total Bilirubin 1.5 mg/dL (0.3-1.2); Total Protein 5.1 g/dL (6.2-8.2)
[2024-12-18] MEDS: amLODIPine 2.5 MG TAB PO SCH (09:01)
[2024-12-18 11:50] LABS: Glucose,Whole Blood 105 mg/dL (70-110)
--- NOTE | 2024-12-18 12:05 | P.PN ---
Subjective Progress Note Date: 12/18/24 Principal diagnosis: Acute cholecystitis This is a pleasant 59-year-old male with history of anxiety and depression, dyslipidemia, GERD, hypertension, and COPD who presented to the emergency department today with complaints of abdominal pain. He complaints most of his abdominal pain is in the right side of his abdomen worse in the right lower. Abdominal pain had started on Saturday and has progressively gotten worse. Reportedly having fever and chills. Nausea and vomiting. He came into the emergency department for further evaluation. Patient was afebrile on admission. Laboratory studies show leukocytosis with a WBC of 17.1, mildly elevated bilirubin at 1.7 AST 33 ALT 66 alkaline phosphatase 103 lipase 23. He underwent gallbladder ultrasound which reported as a suboptimal study secondary to patient's body habitus however does report possible distended gallbladder possibly full of sludge, CBD 0.5 cm. He did undergo a CT of the abdomen and pelvis reporting acute cholecystitis with calculus in gallbladder neck. Gastroenterology was consulted for elevated LFTs and cholelithiasis. General surgery is on consultation for cholecystitis. MRCP has been ordered from the general surgery group. Patient currently states pain is improved with pain medication, no emesis and is afebrile. States most of his pain is in his right lower abdomen but also in the right upper abdomen. 12/17/2024 Patient seen and examined as a follow-up. States abdominal pain is improved. He is using Toradol with good pain relief. States he still has some of that discomfort into his back. No nausea or vomiting. Scheduled for MRCP today which stated findings suggestive of acute cholecystitis redemonstrated. Suboptimal evaluation of the cystic duct and portions of the common bile duct. Visualized portion of common bile duct not dilated. No definitive internal gallstones in the gallbladder. Patient is afebrile. Leukocytosis improving. He remains on IV antibiotics. Total bilirubin 1.8 AST 44 ALT 66 alkaline phosphatase 137 12/18/2024 Patient seen and examined today as a follow-up. He states he still having some right upper quadrant discomfort mostly into his back. No nausea or vomiting. He is scheduled today to undergo cholecystectomy. He has been afebrile. WBC 11.3 hemoglobin 10.3 platelet count 205,000 total bilirubin 1.5 AST 70 ALT 99 alk phos 262 Objective - Vital Signs Vital signs: Vital Signs Temp 98.6 F 12/18/24 00:45 Pulse 76 12/18/24 00:45 Resp 16 12/18/24 00:45 BP 97/56 12/18/24 00:45 Pulse Ox 94 L 12/18/24 00:45 FiO2 Intake & Output 12/17/24 12/17/24 12/18/24 06:59 18:59 06:59 Intake Total 500 250 Balance 500 250 Intake: Oral 500 250 Other: Voiding Method Toilet # Voids 2 3 1 - Exam General appearance: The patient is alert, oriented, appears in no acute distress. HET: Head is normocephalic and atraumatic. Conjunctiva pink. Sclera anicteric. Neck: Supple without lymphadenopathy. Abdomen: Soft, right upper quadrant tenderness, nondistended. Extremities: Normal skin color and turgor. No pedal edema Skin: No rashes, no jaundice Neurological: No focal deficits. Alert and oriented. - Labs CBC & Chem 7: 12/18/24 05:02 12/18/24 05:02 Labs: Microbiology - Last 24 Hours (Table) 12/16/24 12:52 Blood Culture - Preliminary Blood Assessment and Plan (1) Acute cholecystitis Narrative/Plan: 5-year-old male presenting with right upper quadrant pain with CT and ultrasound evidence of acute cholecystitis, reported calculus in the gallbladder neck with mildly elevated total bilirubin and ALT likely reactive to acute cholecystitis. Patient does not appear to have choledochal lithiasis, there is no evidence on ultrasound or CT for biliary dilation. Mildly elevated bilirubin with mild elevation of ALT no elevation of alkaline phosphatase likely not a cholestatic pattern. MRCP has been ordered by the surgical team. Will await imaging. Repeat labs. And continue with recommendations from general surgery. Current Visit: Yes Status: Acute Code(s): K81.0 - ACUTE CHOLECYSTITIS SNOMED Code(s): 87376209 (2) Elevated LFTs Narrative/Plan: Elevated LFTs likely reactive to acute cholecystitis. MRCP is not showing evidence of cholelithiasis or choledocholithiasis. Current Visit: Yes Status: Acute Code(s): R79.89 - OTHER SPECIFIED ABNORMAL FINDINGS OF BLOOD CHEMISTRY SNOMED Code(s): 862907709 Plan: 1. Continue symptomatic and supportive care 2. MRCP findings discussed with general surgery. No indication for ERCP at this time. 3. N.p.o. for surgery 4. Protonix 40 mg daily for GI prophylaxis 5. Antiemetics as needed 6. Pain medication per primary medical team 7. Continue with recommendations from general surgery Thank you for allowing us to participate in the care of the patient, the GI service will sign off, gastroenterology will not be available at the hospital this weekend and through next week. If further evaluation by gastroenterology is required the patient will need transfer as per the primary team's discretion. Dr. Mingo Lozada I agree with the dictator's note, documented as a scribe by Cary Scott.
[2024-12-18] MEDS: IV FLUID CONTINUATION 1,000 ML IV ONE ×2 (14:02→15:03)
[2024-12-18] MEDS: ONDANSETRON 4 MG/2 ML VIAL IVP PRN (14:50)
[2024-12-18] MEDS: DEXAMETHASONE SOD PHOSPHATE 4 MG/ML 1 ML VIAL IVP STA (14:51)
[2024-12-18] MEDS: HEPARIN SODIUM,PORCINE 5,000 UNIT/ML 1 ML VIAL SQ STA (14:51)
[2024-12-18] MEDS: droPERidol 2.5 MG/ML VIAL IVP ONE (14:52)
[2024-12-18] MEDS: LACTATED RINGERS 1,000 ML BAG IV STA (15:03)
[2024-12-18] MEDS ORDERED: HYDROmorphone (PF) 1 MG/ML ONE (15:06)
[2024-12-18] MEDS ORDERED: fentaNYL (PF) 50 MCG/ML 2 ML AMP ONE (15:06)
[2024-12-18] MEDS ORDERED: SUCCINYLCHOLINE CHLORIDE 200 MG/10 ML VIAL IV ONE (15:06)
[2024-12-18] MEDS ORDERED: NEOSTIGMINE 1 MG/ML 10 ML VIAL ONE (15:06)
[2024-12-18] MEDS ORDERED: LIDOCAINE 1% INJ 10MG/ML (20 ML MDV) ONE (15:06)
[2024-12-18] MEDS ORDERED: GLYCOPYRROLATE 0.2 MG/ML 2 ML VIAL ONE (15:06)
[2024-12-18] MEDS ORDERED: PROPOFOL 10 MG/ML 20 ML VIAL IV ONE (15:06)
[2024-12-18] MEDS ORDERED: PHENYLEPHRINE-0.9% NACL SYG 1,000 MCG/10 ML SYRINGE ONE (15:06)
[2024-12-18] MEDS ORDERED: MIDAZOLAM 2 MG/2 ML VIAL ONE (15:06)
[2024-12-18] MEDS ORDERED: ROCURONIUM 10 MG/ML (5 ML VIAL) IV ONE (15:06)
[2024-12-18] MEDS ORDERED: KETOROLAC 15 MG/ML 1 ML VIAL ONE (15:06)
[2024-12-18] MEDS: BUPIVACAINE (PF) 0.25% 30 ML VIAL SQ ONE (15:29)
--- NOTE | 2024-12-18 16:11 | P.PN ---
Subjective Progress Note Date: 12/18/24 Hospital course: Patient is a pleasant 59-year-old male with a past COPD not home oxygen dependent, GERD, anxiety with depression. He presented to the hospital on 12/16/2024 secondary to abdominal pain/discomfort accompanied by nausea and vomiting. Upon arrival to our facility, patient underwent evaluation in the emergency department.. Vital signs upon arrival show blood pressure 118/80, heart rate 116, respiratory rate 18, temp 97.7 F, and SpO2 of 98% on room air. EKG completed showing sinus tachycardia 103 bpm. Labs completed and reviewed. CBC showing leukocytosis with WBC count of 17.11. BMP showing elevated BUN of 21 and blood glucose of 123. Lactic acid was 1.2. Liver profile showed elevated total bili of 1.7 and ALT of 66. Troponin was negative at less than 0. 012. Lipase 23. CT abdomen and pelvis showing acute cholecystitis with a 4 mm calculus in the gallbladder neck, nearby reactive inflammatory changes involving the hepatic flexure and small amount of free fluid in the pelvis. Patient was admitted under services with consultation to gastroenterology to rule out choledocholithiasis and to general surgery for acute cholecystitis. Physical exam: Patient seen and fully evaluated at bedside this morning. He reports continued pain right upper quadrant but denies any further episodes of nausea or vomiting. He reports pain medication is controlling pain at this time. He is scheduled to undergo laparoscopic cholecystectomy later today with Dr. Burton. Vital signs reviewed and stable. General: Nontoxic, no distress and appears stated age. Derm: Skin warm and dry, normal coloration for ethnicity. Head: Atraumatic, normocephalic and symmetric. Eyes: EOM's intact, no lid lag, and anicteric sclera Mouth: no lip lesions, mucus membranes moist Cardiovascular: regular rate and rhythm with normal S1S2, no murmur, positive posterior tibial pulses bilaterally, and cap refill < 2 seconds. Lungs: Respirations even, regular, and unlabored on room air. Lungs CTA bilaterally, no rhonchi, no rales, no wheezing, and no accessory muscle usage. Abdominal: soft, tenderness upon palpation right upper quadrant, no guarding, no appreciable organomegaly Ext: ROM intact. No gross muscle atrophy, no edema, no contractures Neuro: Speech clear, face symmetrical and CN II-XII grossly intact with no noted focal neuro deficits Psych: Alert and oriented to person, place, time, and situation. Appropriate and pleasant affect. Assessment and Plan of Care: Acute cholecystitis Hyperbilirubinemia with transaminitis -General Surgery following, discussed plan of care in detail with general surgery PA. Patient to undergo laparoscopic cholecystectomy later today. -Gastroenterology following, discussed plan of care in detail with gastroenterology POLISH COMPOUNDER. -MRCP was completed showing findings of acute cholecystitis redemonstrated with suboptimal evaluation of cystic duct and portions of the common bile duct but visualized portions of the common bile duct are not dilated and no definitive internal gallstones and gallbladder neck. -Continue IV antibiotics with Zosyn 3.375 g every 8 hours. -Gentle IV fluid hydration with 0.9% normal saline at 130 cc/h, may discontinue once diet is advanced. -Continue symptomatic care and pain management Toradol 15 mg IVP every 6 hours as needed for pain and Zofran 4 mg IVP every 8 hours as needed for nausea or v omiting. -GI prophylaxis with Protonix 40 mg twice daily. Hypertension -Monitor vital signs and continue daily medication regimen with amlodipine 2.5 mg daily. Hyperlipidemia -At this time we continue atorvastatin 10 mg daily, if transaminitis worsens will hold. Anxiety with depression -Continue Wellbutrin XL 300 mg nightly, Celexa 40 mg nightly, and BuSpar 10 mg twice daily as needed for anxiety. Data and imaging reviewed: -Vital signs reviewed. Blood pressure 109/64, heart rate 80, respiratory rate 18, temp 98.5 F, and SpO2 of 96% on room air. Temperature high over the past 24 hours was 99.7 F -Morning labs reviewed. CBC showing improvement of leukocytosis with WBC count decreasing from 17.11 down to 11.35. Hemoglobin also decreasing but stable at 10.3. BMP unremarkable. Blood glucose 108. Liver profile showing hyperbilirubinemia with total bili 1.5, AST of 70, ALT of 99 and alkaline phosphatase of 262. CODE STATUS full code DVT prophylaxis: SCDs Discussed with: Patient, RN, gastroenterology POLISH COMPOUNDER, and general surgery PA Anticipated discharge date: Pending clinical course Anticipated discharge place: Home Patient was seen independently by Nurse Pracitioner. This document was prepared using [employer] dictation software. Please allow for errors in wheat combine driver, while rare they do occur. Oscar Abad NP rendered care for this patient independently, reviewed the find ings and plan as documented in the note above and agree with plan. I did not physically speak with or examine the patient on this date. Objective - Vital Signs Vital signs: Vital Signs Temp 98.5 F 12/18/24 06:58 Pulse 80 12/18/24 06:58 Resp 18 12/18/24 06:58 BP 109/64 12/18/24 06:58 Pulse Ox 96 12/18/24 06:58 FiO2 Intake & Output 12/17/24 12/18/24 12/18/24 18:59 06:59 18:59 Intake Total 250 Balance 250 Intake: Oral 250 Other: Voiding Method Toilet # Voids 3 1 - Labs CBC & Chem 7: 12/18/24 05:02 12/18/24 05:02 Labs: Abnormal Lab Results - Last 24 Hours (Table) 12/18/24 12/18/24 Range/Units 05:02 05:02 WBC 11.35 H (4.50-10.00) X 10*3/uL RBC 3.75 L (4.40-5.60) X 10*6/uL Hgb 10.3 L (13.0-17.0) g/dL Hct 32.2 L (39.6-50.0) % Immature Gran # 0.05 H (0.00-0.04) X 10*3/uL Neutrophils # 9.04 H (1.80-7.70) X 10*3/uL Lymphocytes # 0.47 L (0.90-5.00) X 10*3/uL Monocytes # 1.47 H (0.20-1.00) X 10*3/uL BUN/Creatinine Ratio 22.12 H (12.00-20.00) Ratio Calcium 8.1 L (8.7-10.3) mg/dL Total Bilirubin 1.5 H (0.3-1.2) mg/dL AST 70 H (14-35) U/L ALT 99 H (10-49) U/L Alkaline Phosphatase 262 H (41-126) U/L Total Protein 5.1 L (6.2-8.2) g/dL Albumin 3.0 L (3.8-4.9) g/dL Albumin/Globulin Ratio 1.43 L (1.60-3.17) Ratio Microbiology - Last 24 Hours (Table) 12/16/24 12:52 Blood Culture - Preliminary Blood
[2024-12-18] MEDS: LACTATED RINGERS 1,000 ML IV ONE (16:17)
[2024-12-18] MEDS: HYDROmorphone 0.5 MG/0.5 ML SYRINGE IVP PRN (17:18)
[2024-12-18] MEDS: METOCLOPRAMIDE 5 MG/ML 2 ML VIAL IVP STA (17:38)
[2024-12-18] MEDS: INDOCYANINE GREEN 25 MG VIAL IV STA (18:52)
--- NOTE | 2024-12-18 19:59 | P.OP ---
Date of Procedure: 12/18/24 Preoperative Diagnosis: Acute cholecystitis Postoperative Diagnosis: Acute purulent cholecystitis Procedure(s) Performed: Robotic cholecystectomy Anesthesia: SAVANNAH Surgeon: Nicole Burton Pathology: other (Gallbladder and contents) Condition: stable Disposition: floor Indications for Procedure: 59-year-old male presented to the emergency department with complaint of severe abdominal pain, fever and nausea and vomiting. On workup he is found to have concern for acute cholecystitis. Bilirubin was slightly elevated and MRCP was performed to confirm no clear evidence of choledocholithiasis. With MRCP showing no obvious evidence of this, plan is for robotic cholecystectomy. Risks, benefits and alternatives were provided to the patient. All questions answered prior to attending the operating suite. Operative Findings: Significantly inflamed gallbladder with turbid fluid within the right upper quadrant and lizz pus within the gallbladder lumen Description of Procedure: Patient was brought to the operating suite and placed in supine position on the operating table. Sedation provided by anesthesia and the patient underwent endotracheal intubation. He was then prepped and draped in regular sterile fashion. Infraumbilical incision was made and dissection was carried to the fascia. The fascia was incised and a millimeter trocar was placed. Pneumoperitoneum was achieved. 2 additional 8 mm trocars were placed in the right upper quadrant and 1 in the left upper quadrant. The patient was then positioned appropriately and was noted to have significant turbid fluid in the right upper quadrant and purulent material on the omentum. Instruments were placed and robot was docked. The omentum was then dissected free from the gallbladder and the gallbladder was noted to be significantly distended with purulent and exudative changes. The gallbladder was grasped and elevated superiorly and the laterally and drainage was immediately noted from the gallbladder of purulent material. Suction was used to clear the purulent material and fluid in the right upper quadrant. Dissection was then carried along the infundibulum towards the cystic duct. Attempt was made to evaluate anatomy using ICG, however the cystic duct and gallbladder were noted not to light up, likely secondary to the severe cholecystitis. 2 clips were placed proximally and 1 was placed distally on the cystic duct and the cystic duct was ligated. The cystic artery was then also clearly visualized and clip was placed proximally and distally and the cystic artery was ligated. Cautery was then used to dissect the gallbladder off of the liver bed. Significant care was taken during this process as the gallbladder was quite inflamed. Hemostasis was noted throughout this process. No evidence of biliary leak was noted. Gallbladder was then placed in an Endo Catch bag and removed from the abdomen from the infraumbilical incision site. Copious months irrigation was placed in the right upper quadrant and suction. Hemostasis continued to be maintained. Coagulant factor was placed on the liver bed at the site of dissection. Decision was made secondary to the significant purulent drainage and inflammation to leave JUDIE drain under the liver bed and this was secured from the lateral trocar site using 2-0 nylon suture. The infraumbilical fascial incision site was closed using 0 Vicryl suture under direct visualization and Caleb- Shelby device. Pneumoperitoneum was released and all ports removed from the abdomen. All incision sites were closed with 4-0 Vicryl subcuticular suture. Sterile dressing was applied. The patient was awakened in the operating suite and taken to postanesthesia care in stable condition.
[2024-12-18 22:43] LABS: Glucose,Whole Blood 142 mg/dL (70-110)
[2024-12-19] MEDS: HEPARIN SODIUM,PORCINE 5,000 UNIT/ML 1 ML VIAL SQ SCH (00:29)
[2024-12-19] MEDS: HYDROmorphone 0.5 MG/0.5 ML SYRINGE IVP PRN (00:34)
[2024-12-19] MEDS: HYDROcodone/APAP 5-325MG 1 EACH TAB PO PRN (03:36)
[2024-12-19 06:32] LABS: Glucose,Whole Blood 138 mg/dL (70-110)
[2024-12-19] MEDS: ONDANSETRON 4 MG/2 ML VIAL IVP PRN (07:49)
--- NOTE | 2024-12-19 09:53 | P.PN ---
Progress Note - Text Progress Note Date: 12/19/24 CHIEF COMPLAINT: Acute cholecystitis HISTORY OF PRESENT ILLNESS: Patient is POD #1 Cholecystectomy. No acute events overnight. Tolerating Clear Liquid Diet. Pain is controlled. Denies nausea. JUDIE is serosangenous PHYSICAL EXAM: VITAL SIGNS: Reviewed. GENERAL: Well-developed in no acute distress. HEENT: No sclera icterus. Extraocular movements grossly intact. Moist buccal mucosa. Head is atraumatic, normocephalic. ABDOMEN: Soft. Nondistended. Incisions C/D/I. JUDIE is serosangenous NEUROLOGIC: Alert and oriented. Cranial nerves II through XII grossly intact. ASSESSMENT: 1. Acute cholecystitis 2. Mildly elevated total bilirubin PLAN: - Advanced to Regular Diet - IV Fluids turned down to 75 cc/hr - Continue antibiotics - Continue supportive care - OOB, ambulate - AM labs Damian Travis DO [facility] [phone]
[2024-12-19] MEDS: SODIUM CHLORIDE 0.9% 1,000 ML IV SCH (10:04)
[2024-12-19 10:34] LABS: HCT 33.4 % (39.6-50.0); HGB 10.2 g/dL (13.0-17.0); MCH 26.7 pg (27.0-32.0); MCHC 30.5 g/dL (32.0-37.0); MCV 87.4 FL (80.0-97.0); Mean Platelet Volume 11.5 FL (9.5-12.2); NRBC Per 100 WBC 0 X 10*3/uL (0.00-0.01); Platelet Count 209 X 10*3/uL (140-440); RBC 3.82 X 10*6/uL (4.40-5.60); RDW 14.2 % (11.5-14.5)
[2024-12-19 11:21] LABS: ALT 92 U/L (10-49); AST 45 U/L (14-35); Albumin/Globulin Ratio 1.43 Ratio (1.60-3.17); Alkaline Phosphatase 281 U/L (41-126); BUN/Creat Ratio 22.43 Ratio (12.00-20.00); Blood Urea Nitrogen 15.7 mg/dL (9.0-27.0); Calcium 8.1 mg/dL (8.7-10.3); Carbon Dioxide 24.2 mmol/L (21.6-31.8); Chloride 104 mmol/L (96-109); Globulin 2.1 g/dL (1.6-3.3); Glucose 132 mg/dL (70-110); Magnesium 2.1 mg/dL (1.5-2.4); Potassium 4.4 mmol/L (3.5-5.5); Sodium 139 mmol/L (135-145); Total Protein 5.1 g/dL (6.2-8.2)
[2024-12-19 11:58] LABS: Glucose,Whole Blood 121 mg/dL (70-110)
--- NOTE | 2024-12-19 16:36 | P.PN ---
Subjective Progress Note Date: 12/19/24 Hospital course: Patient is a pleasant 59-year-old male with a past COPD not home oxygen dependent, GERD, anxiety with depression. He presented to the hospital on 12/16/2024 secondary to abdominal pain/discomfort accompanied by nausea and vomiting. Upon arrival to our facility, patient underwent evaluation in the emergency department.. Vital signs upon arrival show blood pressure 118/80, heart rate 116, respiratory rate 18, temp 97.7 F, and SpO2 of 98% on room air. EKG completed showing sinus tachycardia 103 bpm. Labs completed and reviewed. CBC showing leukocytosis with WBC count of 17.11. BMP showing elevated BUN of 21 and blood glucose of 123. Lactic acid was 1.2. Liver profile showed elevated total bili of 1.7 and ALT of 66. Troponin was negative at less than 0. 012. Lipase 23. CT abdomen and pelvis showing acute cholecystitis with a 4 mm calculus in the gallbladder neck, nearby reactive inflammatory changes involving the hepatic flexure and small amount of free fluid in the pelvis. Patient was admitted under services with consultation to gastroenterology to rule out choledocholithiasis and to general surgery for acute cholecystitis. Physical exam: Patient seen and fully evaluated at bedside this morning. He is post op day 1 and reports feeling well this morning. States he was even up to the chair. Patient was tolerating clear liquid diet without any reports of nausea or vomiting. Vital signs reviewed and stable. General: Nontoxic, no distress and appears stated age. Derm: Skin warm and dry, normal coloration for ethnicity. Head: Atraumatic, normocephalic and symmetric. Eyes: EOM's intact, no lid lag, and anicteric sclera Mouth: no lip lesions, mucus membranes moist Cardiovascular: regular rate and rhythm with normal S1S2, no murmur, positive posterior tibial pulses bilaterally, and cap refill < 2 seconds. Lungs: Respirations even, regular, and unlabored on room air. Lungs CTA bilaterally, no rhonchi, no rales, no wheezing, and no accessory muscle usage. Abdominal: soft, tenderness upon palpation right upper quadrant, no guarding, no appreciable organomegaly Ext: ROM intact. No gross muscle atrophy, no edema, no contractures Neuro: Speech clear, face symmetrical and CN II-XII grossly intact with no noted focal neuro deficits Psych: Alert and oriented to person, place, time, and situation. Appropriate and pleasant affect. Assessment and Plan of Care: Acute cholecystitis Hyperbilirubinemia with transaminitis -General Surgery following, took patient for laparoscopic cholecystectomy 12/18/2024. -Gastroenterology evaluated and clearing patient from their perspective. -MRCP was completed showing findings of acute cholecystitis redemonstrated with suboptimal evaluation of cystic duct and portions of the common bile duct but visualized portions of the common bile duct are not dilated and no definitive internal gallstones and gallbladder neck. -Continue IV antibiotics with Zosyn 3.375 g every 8 hours. -Gentle IV fluid hydration with 0.9% normal saline at 75 cc/h, may discontinue once diet is advanced. -Continue symptomatic care and pain management Toradol 15 mg IVP every 6 hours as needed for pain and Zofran 4 mg IVP every 8 hours as needed for nausea or vomiting. -GI prophylaxis with Protonix 40 mg twice daily. - Bowel regimen with MiraLAX 17 g nightly. Hypertension -Monitor vital signs and continue daily medication regimen with amlodipine 2.5 mg daily. Hyperlipidemia -At this time we continue atorvastatin 10 mg daily, if transaminitis worsens will hold. Anxiety with depression -Continue Wellbutrin XL 300 mg nightly, Celexa 40 mg nightly, and BuSpar 10 mg twice daily as needed for anxiety. Data and imaging reviewed: -Vital signs reviewed. Blood pressure 124/76, heart rate 87, respiratory rate 18, temp 97.8 F, and SpO2 of 95% on room air. -Morning labs reviewed. CBC showing resolution of leukocytosis with WBC count of 9.70 and stable hemoglobin of 10.2. BMP unremarkable. Blood glucose 132. Magnesium 2.1. Liver profile showing improved but continued transaminitis with AST of 45, ALT of 92 and alkaline phosphatase of 281. CODE STATUS full code DVT prophylaxis: SCDs Discussed with: Patient and RN Anticipated discharge date: Pending clinical course Anticipated discharge place: Home Patient was seen independently by Nurse Pracitioner. This document was prepared using [employer] dictation software. Please allow for errors in blanket folder, while rare they do occur. Oscar Abad NP rendered care for this patient independently, reviewed the findings and plan as documented in the note above and agree with plan. I did not physically speak with or examine the patient on this date. Objective - Vital Signs Vital signs: Vital Signs Temp 97.8 F 05/10/25 07:25 Pulse 87 12/19/24 07:25 Resp 18 12/19/24 07:25 BP 124/76 12/19/24 07:25 Pulse Ox 95 12/19/24 07:25 FiO2 Intake & Output 12/18/24 12/19/24 12/19/24 18:59 06:59 18:59 Intake Total 1800 Output Total 5 580 Balance 1795 -580 Weight 108.862 kg Intake: IV 1800 Output: Drainage 30 Right Abdomen 30 Urine 550 Estimated Blood Loss 5 Other: Voiding Method Urinal # Voids 2 - Labs CBC & Chem 7: 12/19/24 03:27 12/19/24 03:27 Labs: Abnormal Lab Results - Last 24 Hours (Table) 12/18/24 12/19/24 Range/Units 22:41 06:31 POC Glucose (mg/dL) 142 H 138 H (70-110) mg/dL Microbiology - Last 24 Hours (Table) 12/16/24 12:52 Blood Culture - Preliminary Blood
[2024-12-19 16:43] LABS: Glucose,Whole Blood 104 mg/dL (70-110)
[2024-12-19 20:14] LABS: Glucose,Whole Blood 111 mg/dL (70-110)
[2024-12-19] MEDS: polyethylene glycoL 3350 17 GM POWD.PACK PO SCH (21:14)
[2024-12-20 06:27] LABS: Glucose,Whole Blood 100 mg/dL (70-110)
[2024-12-20 10:04] LABS: ALT 92 U/L (10-49); AST 49 U/L (14-35); Albumin 2.9 g/dL (3.8-4.9); Albumin/Globulin Ratio 1.38 Ratio (1.60-3.17); Alkaline Phosphatase 296 U/L (41-126); BUN/Creat Ratio 17.12 Ratio (12.00-20.00); Basophils # (A) 0.02 X 10*3/uL (0.00-0.10); Basophils % (A) 0.3 %; Bilirubin, Conjugated 0.46 mg/dL (0.20-0.40); Bilirubin,Unconjugated 0.34 mg/dL (0.20-1.00); Blood Urea Nitrogen 13.7 mg/dL (9.0-27.0); Calcium 7.9 mg/dL (8.7-10.3); Carbon Dioxide 25.5 mmol/L (21.6-31.8); Chloride 103 mmol/L (96-109); Eosinophils % (A) 1.4 %; Globulin 2.1 g/dL (1.6-3.3); Glucose 99 mg/dL (70-110); HCT 31.8 % (39.6-50.0); HGB 10.1 g/dL (13.0-17.0); Lymphocytes # (A) 0.63 X 10*3/uL (0.90-5.00); MCH 27.4 pg (27.0-32.0); MCHC 31.8 g/dL (32.0-37.0); MCV 86.4 FL (80.0-97.0); Mean Platelet Volume 10.9 FL (9.5-12.2); Monocytes # (A) 0.98 X 10*3/uL (0.20-1.00); Monocytes % (A) 13.9 %; NRBC Per 100 WBC 0 X 10*3/uL (0.00-0.01); Neutrophils # (A) 5.18 X 10*3/uL (1.80-7.70); Neutrophils % (A) 73.7 %; Platelet Count 267 X 10*3/uL (140-440); Potassium 3.8 mmol/L (3.5-5.5); RBC 3.68 X 10*6/uL (4.40-5.60); RDW 14.3 % (11.5-14.5); Sodium 139 mmol/L (135-145); Total Bilirubin 0.8 mg/dL (0.3-1.2); WBC 7.03 X 10*3/uL (4.50-10.00)
[2024-12-20 11:38] LABS: Glucose,Whole Blood 108 mg/dL (70-110)
--- NOTE | 2024-12-20 13:13 | P.PN ---
Progress Note - Text Progress Note Date: 12/20/24 HISTORY OF PRESENT ILLNESS: Patient is POD #2 Cholecystectomy. No acute events overnight. Tolerating Diet. Pain is controlled. Denies nausea. JUDIE is bile tinged. PHYSICAL EXAM: VITAL SIGNS: Reviewed. GENERAL: Well-developed in no acute distress. HEENT: No sclera icterus. Extraocular movements grossly intact. Moist buccal mucosa. Head is atraumatic, normocephalic. ABDOMEN: Soft. Nondistended. Incisions C/D/I. JUDIE is serosangenous NEUROLOGIC: Alert and oriented. Cranial nerves II through XII grossly intact. ASSESSMENT: 1. Acute cholecystitis 2. Mildly elevated total bilirubin PLAN: - Regular Diet - IV Fluids - Continue antibiotics - Cultures positive for E. Coli - Continue supportive care - OOB, ambulate - AM labs Damian Travis [facility] [phone]
[2024-12-20] MEDS ORDERED: ALPRAZolam 0.5 MG TAB PO PRN (13:46)
--- NOTE | 2024-12-20 14:25 | P.PN ---
Subjective Progress Note Date: 12/20/24 Hospital course: Patient is a pleasant 59-year-old male with a past COPD not home oxygen dependent, GERD, anxiety with depression. He presented to the hospital on 12/16/2024 secondary to abdominal pain/discomfort accompanied by nausea and vomiting. Upon arrival to our facility, patient underwent evaluation in the emergency department.. Vital signs upon arrival show blood pressure 118/80, heart rate 116, respiratory rate 18, temp 97.7 F, and SpO2 of 98% on room air. EKG completed showing sinus tachycardia 103 bpm. Labs completed and reviewed. CBC showing leukocytosis with WBC count of 17.11. BMP showing elevated BUN of 21 and blood glucose of 123. Lactic acid was 1.2. Liver profile showed elevated total bili of 1.7 and ALT of 66. Troponin was negative at less than 0.012. Lipase 23. CT abdomen and pelvis showing acute cholecystitis with a 4 m m calculus in the gallbladder neck, nearby reactive inflammatory changes involving the hepatic flexure and small amount of free fluid in the pelvis. Patient was admitted under services with consultation to gastroenterology to rule out choledocholithiasis and to general surgery for acute cholecystitis. MRCP was completed showing findings of acute cholecystitis redemonstrated with suboptimal evaluation of cystic duct and portions of the common bile duct but visualized portions of the common bile duct are not dilated and no definitive internal gallstones and gallbladder neck. Patient underwent laparoscopic cholecystectomy 12/18/2024. Blood culture showing no growth to date. Wound culture obtained during surgery preliminarily positive for E. coli. Infectious disease consulted Physical exam: Patient seen and fully evaluated at bedside this morning. He is post op day 2 and reports feeling great. He states that he has had decreased output from JUDIE drain and feels eager to go home. Patient tolerating oral intake and denies having any nausea or vomiting. He reports passing flatus and states. Small bowel movement just prior to surgery team advancing him to regular diet but no further bowel movements since. Vital signs reviewed and stable. General: Nontoxic, no distress and appears stated age. Derm: Skin warm and dry, normal coloration for ethnicity. Head: Atraumatic, normocephalic and symmetric. Eyes: EOM's intact, no lid lag, and anicteric sclera Mouth: no lip lesions, mucus membranes moist Cardiovascular: regular rate and rhythm with normal S1S2, no murmur, positive posterior tibial pulses bilaterally, and cap refill < 2 seconds. Lungs: Respirations even, regular, and unlabored on room air. Lungs CTA bilaterally, no rhonchi, no rales, no wheezing, and no accessory muscle usage. Abdominal: soft, minimal tenderness around laparoscopic incision sites. JUDIE drain in place with tea colored drainage. Ext: ROM intact. No gross muscle atrophy, no edema, no contractures Neuro: Speech clear, face symmetrical and CN II-XII grossly intact with no noted focal neuro deficits Psych: Alert and oriented to person, place, time, and situation. Appropriate and pleasant affect. Assessment and Plan of Care: Acute cholecystitis status post laparoscopic cholecystectomy 12/18/2024. E. coli infection Hyperbilirubinemia with transaminitis -General Surgery following, took patient for laparoscopic cholecystectomy 12/18/2024. -Blood culture showing no growth to date. Wound culture obtained during surgery preliminarily positive for E. coli. -Infectious disease consulted, appreciate recommendation -Continue IV antibiotics with Zosyn 3.375 g every 8 hours. -Continue symptomatic care and pain management Toradol 15 mg IVP every 6 hours as needed for pain and Zofran 4 mg IVP every 8 hours as needed for nausea or vomiting. -GI prophylaxis with Protonix 40 mg twice daily. -Bowel regimen with MiraLAX 17 g nightly. Hypertension -Monitor vital signs and continue daily medication regimen with amlodipine 2.5 mg daily. Hyperlipidemia -At this time we continue atorvastatin 10 mg daily, if transaminitis worsens will hold. Anxiety with depression -Continue Wellbutrin XL 300 mg nightly, Celexa 40 mg nightly, and BuSpar 10 mg twice daily as needed for anxiety. Data and imaging reviewed: -Vital signs reviewed. Blood pressure 132/83, heart rate 94, respiratory rate 18, temp 99.0 F, and SpO2 of 95% on room air -Morning labs reviewed. Blood culture showing no growth to date. Wound culture obtained during surgery preliminarily positive for E. coli. CBC showing stable normocytic anemia with hemoglobin of 10.1. BMP unremarkable. Blood glucose was 100. Calcium 7.9 but with albumin of 2.9 corrected calcium of 8.8. Liver profile showing improving but continued transaminitis with AST of 49, ALT of 92, and alkaline phosphatase of 296. CODE STATUS full code DVT prophylaxis: SCDs Discussed with: Patient and RN Anticipated discharge date: Pending clinical course Anticipated discharge place: Home Patient was seen independently by Nurse Pracitioner. This document was prepared using [employer] dictation software. Please allow for errors in car runner, while rare they do occur. Oscar Abad [employer] rendered care for this patient independently, reviewed the findings and plan as documented in the note above and agree with plan. I did not physically speak with or examine the patient on this date. Objective - Vital Signs Vital signs: Vital Signs Temp 99.0 F 12/20/24 08:14 Pulse 94 12/20/24 08:14 Resp 18 12/20/24 08:14 BP 132/83 12/20/24 08:14 Pulse Ox 95 12/20/24 08:14 FiO2 Intake & Output 12/19/24 12/20/24 12/20/24 18:59 06:59 18:59 Intake Total 1620 Output Total 75 Balance -75 1620 Intake: Oral 1620 Output: Drainage 75 Right Abdomen 75 Other: Voiding Method Urinal # Voids 4 5 - Labs CBC & Chem 7: 12/20/24 06:21 12/20/24 06:21 Labs: Abnormal Lab Results - Last 24 Hours (Table) 12/19/24 12/19/24 12/19/24 Range/Units 03:27 03:27 11:56 RBC 3.82 L (4.40-5.60) X 10*6/uL Hgb 10.2 L (13.0-17.0) g/dL Hct 33.4 L (39.6-50.0) % MCH 26.7 L (27.0-32.0) pg MCHC 30.5 L (32.0-37.0) g/dL BUN/Creatinine Ratio 22.43 H (12.00-20.00) Ratio Glucose 132 H (70-110) mg/dL POC Glucose (mg/dL) 121 H (70-110) mg/dL Calcium 8.1 L (8.7-10.3) mg/dL AST 45 H (14-35) U/L ALT 92 H (10-49) U/L Alkaline Phosphatase 281 H (41-126) U/L Total Protein 5.1 L (6.2-8.2) g/dL Albumin 3.0 L (3.8-4.9) g/dL Albumin/Globulin Ratio 1.43 L (1.60-3.17) Ratio 12/19/24 Range/Units 20:13 RBC (4.40-5.60) X 10*6/uL Hgb (13.0-17.0) g/dL Hct (39.6-50.0) % MCH (27.0-32.0) pg MCHC (32.0-37.0) g/dL BUN/Creatinine Ratio (12.00-20.00) Ratio Glucose (70-110) mg/dL POC Glucose (mg/dL) 111 H (70-110) mg/dL Calcium (8.7-10.3) mg/dL AST (14-35) U/L ALT (10-49) U/L Alkaline Phosphatase (41-126) U/L Total Protein (6.2-8.2) g/dL Albumin (3.8-4.9) g/dL Albumin/Globulin Ratio (1.60-3.17) Ratio Microbiology - Last 24 Hours (Table) 12/18/24 16:40 Gram Stain - Preliminary Other - Other Wound Culture - Preliminary Escherichia coli 12/16/24 12:52 Blood Culture - Preliminary Blood
[2024-12-20 16:54] LABS: Glucose,Whole Blood 94 mg/dL (70-110)
[2024-12-20 20:28] LABS: Glucose,Whole Blood 111 mg/dL (70-110)
[2024-12-20] MEDS: MELATONIN 3 MG TABLET PO SCH (20:52)
[2024-12-21 06:19] LABS: Glucose,Whole Blood 99 mg/dL (70-110)
--- NOTE | 2024-12-21 07:34 | P.CONS ---
History of Present Illness - Reason for Consult Consult date: 12/20/24 Positive culture Requesting physician: Oscar Abad - Chief Complaint Abdominal pain x few days - History of Present Illness Patient is a 59-year-old male with a past medical history significant for hypertension hyperlipidemia osteoarthritis reflux presenting to the hospital 4 days ago for evaluation of abdominal pain and this patient has been diagnosed with cholecystitis the patient is status post robotic cholecystectomy completed on 12/18/2024 with operative findings of acute purulent cholecystitis operative culture completed which is currently growing E. coli patient has been treated with [facility] infectious disease was consulted today for further management of antibiotic therapy patient on presentation to the hospital was afebrile he did have 1 low-grade fever of 99.7 on 12/17/2024 and no fever have been called subsequently patient denies any headache or URI symptoms no chest pain shortness of breath or cough he did have pain to the right upper quadrant area mostly dull aching has decreased in intensity no nausea no vomiting patient did not have any bowel movement and no urinary symptoms, patient did have a white count of 11.72 on admission white count subsequent normalized creatinine 0.8 did have elevated liver enzymes blood culture negative abdominal culture with E. coli sensitivities pending Review of Systems Positive point and negatives has been mentioned in the HPI, complete review of systems was performed and all other systems are negative Past Medical History Past Medical History: Asthma, GERD/Reflux, Hyperlipidemia, Hypertension, Osteoarthritis (OA) Additional Past Medical History / Comment(s): GERD, recent difficulty for diarrhea. Occasional bleeding hemorrhoids, sciatic nerve pain, DDD (cervical), History of Any Multi-Drug Resistant Organisms: None Reported Past Surgical History: Orthopedic Surgery, Tonsillectomy Additional Past Surgical History / Comment(s): growth removed in scrotum at age 13, needle removed left foot, colonoscopy. RIGHT SHOULDER SURGERY Past Anesthesia/Blood Transfusion Reactions: No Reported Reaction Additional Past Anesthesia/Blood Transfusion Reaction / Comm: . Past Psychological History: Anxiety Smoking Status: Former smoker - Past Family History Father Family Medical History: Diabetes Mellitus, Renal Disease Additional Family Medical History / Comment(s): Obesity Mother Family Medical History: COPD Medications and Allergies Home Medications Medication Instructions Recorded Confirmed Type Citalopram Hydrobromide [CeleXA] 40 mg PO HS 08/22/16 12/16/24 History Simvastatin [Zocor] 20 mg PO DAILY 04/25/20 12/16/24 History amLODIPine BESYLATE [Norvasc] 2.5 mg PO DAILY 04/25/20 12/16/24 History Pantoprazole [Protonix] 40 mg PO BID 03/20/23 12/16/24 History Dicyclomine [Bentyl] 20 mg PO TID 03/22/23 12/16/24 History Budesonide/Formoterol Fumarate 2 puff INHALATION RT-BID 12/16/24 12/16/24 History [Symbicort 160-4.5 Mcg Inhaler] Celecoxib [CeleBREX] 200 mg PO BID PRN 12/16/24 12/16/24 History buPROPion XL [Wellbutrin XL] 300 mg PO HS 12/16/24 12/16/24 History busPIRone HCL 10 mg PO BID PRN 12/16/24 12/16/24 History polyethylene glycoL 3350 [Miralax] 17 gm PO HS 30 Days #30 packet 12/20/24 Rx Allergies Allergy/AdvReac Type Severity Reaction Status Date / Time No Known Allergies Allergy Verified 12/18/24 14:05 Physical Exam Vitals: Vital Signs Temp Pulse Resp BP Pulse Ox 12/20/24 14:15 98.3 F 95 18 135/85 95 12/20/24 08:14 99.0 F 94 18 132/83 95 12/20/24 00:32 98.9 F 94 15 113/72 95 12/19/24 19:59 98.5 F 91 16 112/74 95 Intake and Output 12/20/24 12/20/24 12/20/24 06:59 14:59 22:59 Intake Total 1620 Balance 1620 Intake: Oral 1620 Other: # Voids 5 GENERAL DESCRIPTION: Middle-age male lying in bed, no distress. No tachypnea or accessory muscle of respiration use. HEENT: Shows Pallor , no scleral icterus. Oral mucous membrane is dry. NECK: Trachea central, no thyromegaly. LUNGS: Unlabored breathing. Clear to auscultation anteriorly. No wheeze or crackle. HEART: S1, S2, regular rate and rhythm. No loud murmur ABDOMEN: Soft, mild tenderness , EXTREMITIES: No edema of feet. SKIN: No rash, no masses palpable. NEUROLOGICAL: The patient is awake, alert, oriented x3, mood and affect normal. Results CBC & Chem 7: 12/20/24 06:21 12/20/24 06:21 Labs: Abnormal Lab Results - Last 24 Hours (Table) 12/19/24 12/20/24 12/20/24 Range/Units 20:13 06:21 06:21 RBC 3.68 L (4.40-5.60) X 10*6/uL Hgb 10.1 L (13.0-17.0) g/dL Hct 31.8 L (39.6-50.0) % MCHC 31.8 L (32.0-37.0) g/dL Immature Gran # 0.12 H (0.00-0.04) X 10*3/uL Lymphocytes # 0.63 L (0.90-5.00) X 10*3/uL POC Glucose (mg/dL) 111 H (70-110) mg/dL Calcium 7.9 L (8.7-10.3) mg/dL Conjugated Bilirubin 0.46 H (0.20-0.40) mg/dL AST 49 H (14-35) U/L ALT 92 H (10-49) U/L Alkaline Phosphatase 296 H (41-126) U/L Total Protein 5.0 L (6.2-8.2) g/dL Albumin 2.9 L (3.8-4.9) g/dL Albumin/Globulin Ratio 1.38 L (1.60-3.17) Ratio Microbiology - Last 24 Hours (Table) 12/18/24 16:40 Gram Stain - Preliminary Other - Other Wound Culture - Preliminary Escherichia coli 12/16/24 12:52 Blood Culture - Preliminary Blood Assessment and Plan (1) Acute cholecystitis Current Visit: Yes Status: Acute Code(s): K81.0 - ACUTE CHOLECYSTITIS SNOMED Code(s): 46168830 (2) Leukocytosis Current Visit: Yes Status: Acute Code(s): D72.829 - ELEVATED WHITE BLOOD CELL COUNT, UNSPECIFIED SNOMED Code(s): 505548107 Plan: 1patient presented hospital with abdominal pain did have elevated liver enzymes has been diagnosed with acute cholecystitis status post cholecystectomy with evidence of purulent cholecystitis and abdominal culture now growing E. coli with sensitivities pending. 2patient with elevated white count related to acute cholecystitis. 3patient will be treated with Zosyn while waiting for the culture to finalize. We will follow on clinical condition and cultures to further adjust medication if needed Thank you for this consultation we will follow the patient along with you Dictation was produced using [employer] dictation software. please excuse any grammatical, word or spelling errors. Time with Patient: Greater than 30
[2024-12-21 08:20] LABS: ALT 83 U/L (10-49); AST 34 U/L (14-35); Albumin 2.8 g/dL (3.8-4.9); Albumin/Globulin Ratio 1.22 Ratio (1.60-3.17); Alkaline Phosphatase 313 U/L (41-126); BUN/Creat Ratio 12.14 Ratio (12.00-20.00); Blood Urea Nitrogen 8.5 mg/dL (9.0-27.0); Calcium 8.2 mg/dL (8.7-10.3); Chloride 103 mmol/L (96-109); Globulin 2.3 g/dL (1.6-3.3); Glucose 115 mg/dL (70-110); Sodium 139 mmol/L (135-145); Total Bilirubin 0.7 mg/dL (0.3-1.2); Total Protein 5.1 g/dL (6.2-8.2)
[2024-12-21 08:33] LABS: Basophils # (A) 0.05 X 10*3/uL (0.00-0.10); Basophils % (A) 0.7 %; Eosinophils # (A) 0.16 X 10*3/uL (0.04-0.35); Eosinophils % (A) 2.1 %; HCT 31.7 % (39.6-50.0); HGB 10.1 g/dL (13.0-17.0); Lymphocytes # (A) 0.68 X 10*3/uL (0.90-5.00); Lymphocytes % (A) 8.9 %; MCH 27.6 pg (27.0-32.0); MCHC 31.9 g/dL (32.0-37.0); MCV 86.6 FL (80.0-97.0); Mean Platelet Volume 11.3 FL (9.5-12.2); Monocytes # (A) 1.04 X 10*3/uL (0.20-1.00); Monocytes % (A) 13.6 %; NRBC Per 100 WBC 0 X 10*3/uL (0.00-0.01); Neutrophils # (A) 5.61 X 10*3/uL (1.80-7.70); Platelet Count 296 X 10*3/uL (140-440); RBC 3.66 X 10*6/uL (4.40-5.60); RDW 14.2 % (11.5-14.5); WBC 7.67 X 10*3/uL (4.50-10.00)
[2024-12-21 11:25] LABS: Glucose,Whole Blood 88 mg/dL (70-110)
--- NOTE | 2024-12-21 14:11 | P.PN ---
Subjective Progress Note Date: 12/21/24 SURGICAL PROGRESS NOTE CHIEF COMPLAINT: Acute cholecystitis HISTORY OF PRESENT ILLNESS: Patient is postop day #3 status post robotic cholecystectomy for acute purulent cholecystitis. Patient has been up and ambulating the hallway. He reports his pain is controlled. He is having flatus that started last night. Denies any nausea or vomiting. Afebrile. Preliminary abdominal culture with E. coli. WBC 7.67 Hgb 10.1 total bilirubin 0.7 AST down from 49-34 ALT 92 down to 83 alk phos 296 to 313 PHYSICAL EXAM: VITAL SIGNS: Reviewed. GENERAL: Well-developed in no acute distress. ABDOMEN: Soft. Nondistended. JUDIE drain bile tinged NEUROLOGIC: Alert and oriented. Cranial nerves II through XII grossly intact. ASSESSMENT: 1. Acute cholecystitis PLAN: -Continue regular diet -Continue antibiotics per ID -Encourage patient to ambulate -Continue pain management -JUDIE drain bile tinged. Bilirubin levels are normal. Continue to monitor JUDIE drain output. -Patient can be discharged from surgical standpoint when medically cleared. Patient to be discharged home with JUDIE drain. Physician Telecom Billing Analyst note has been reviewed by physician. Signing provider agrees with the documented findings, assessment, and plan of care. Objective - Vital Signs Vital signs: Vital Signs Temp 98.3 F 12/21/24 07:21 Pulse 79 12/21/24 07:21 Resp 18 12/21/24 07:21 BP 133/83 12/21/24 07:21 Pulse Ox 93 L 12/21/24 07:21 FiO2 Intake & Output 12/20/24 12/21/24 12/21/24 18:59 06:59 18:59 Intake Total 540 Output Total 1200 Balance -660 Intake: Oral 540 Output: Urine 1200 Other: Voiding Method Urinal # Voids 4 3 - Labs CBC & Chem 7: 12/21/24 02:53 12/21/24 02:53 Labs: Abnormal Lab Results - Last 24 Hours (Table) 12/20/24 12/21/24 12/21/24 Range/Units 20:27 02:53 02:53 RBC 3.66 L (4.40-5.60) X 10*6/uL Hgb 10.1 L (13.0-17.0) g/dL Hct 31.7 L (39.6-50.0) % MCHC 31.9 L (32.0-37.0) g/dL Immature Gran # 0.13 H (0.00-0.04) X 10*3/uL Lymphocytes # 0.68 L (0.90-5.00) X 10*3/uL Monocytes # 1.04 H (0.20-1.00) X 10*3/uL BUN 8.5 L (9.0-27.0) mg/dL Glucose 115 H (70-110) mg/dL POC Glucose (mg/dL) 111 H (70-110) mg/dL Calcium 8.2 L (8.7-10.3) mg/dL ALT 83 H (10-49) U/L Alkaline Phosphatase 313 H (41-126) U/L Total Protein 5.1 L (6.2-8.2) g/dL Albumin 2.8 L (3.8-4.9) g/dL Albumin/Globulin Ratio 1.22 L (1.60-3.17) Ratio Microbiology - Last 24 Hours (Table) 12/18/24 16:40 Gram Stain - Preliminary Other - Other Wound Culture - Preliminary Escherichia coli
[2024-12-21 16:21] LABS: Glucose,Whole Blood 110 mg/dL (70-110)
--- NOTE | 2024-12-21 16:44 | P.PN ---
Subjective Progress Note Date: 12/21/24 Hospital course: Patient is a pleasant 59-year-old male with a past COPD not home oxygen dependent, GERD, anxiety with depression. He presented to the hospital on 12/16/2024 secondary to abdominal pain/discomfort accompanied by nausea and vomiting. Upon arrival to our facility, patient underwent evaluation in the emergency department.. Vital signs upon arrival show blood pressure 118/80, heart rate 116, respiratory rate 18, temp 97.7 F, and SpO2 of 98% on room air. EKG completed showing sinus tachycardia 103 bpm. Labs completed and reviewed. CBC showing leukocytosis with WBC count of 17.11. BMP showing elevated BUN of 21 and blood glucose of 123. Lactic acid was 1.2. Liver profile showed elevated total bili of 1.7 and ALT of 66. Troponin was negative at less than 0.012. Lipase 23. CT abdomen and pelvis showing acute cholecystitis with a 4 m m calculus in the gallbladder neck, nearby reactive inflammatory changes involving the hepatic flexure and small amount of free fluid in the pelvis. Patient was admitted under services with consultation to gastroenterology to rule out choledocholithiasis and to general surgery for acute cholecystitis. MRCP was completed showing findings of acute cholecystitis redemonstrated with suboptimal evaluation of cystic duct and portions of the common bile duct but visualized portions of the common bile duct are not dilated and no definitive internal gallstones and gallbladder neck. Patient underwent laparoscopic cholecystectomy 12/18/2024. Blood culture showing no growth to date. Wound culture obtained during surgery preliminarily positive for E. coli. Infectious disease consulted Physical exam: Patient seen and fully evaluated at bedside this morning. He is post op day 3 and reports feeling well. He reports abdominal pain is controlled and states had a bowel movement this morning. He reports continued urination without any difficulties and states he has been ambulating in the halls. Patient's at bedside updated patient and his that we are awaiting final culture and sensitivity report and then will plan for discharge home once appropriate antibiotic coverage is identified. Vital signs reviewed and stable. General: Nontoxic, no distress and appears stated age. Derm: Skin warm and dry, normal coloration for ethnicity. Head: Atraumatic, normocephalic and symmetric. Eyes: EOM's intact, no lid lag, and anicteric sclera Mouth: no lip lesions, mucus membranes moist Cardiovascular: regular rate and rhythm with normal S1S2, no murmur, positive posterior tibial pulses bilaterally, and cap refill < 2 seconds. Lungs: Respirations even, regular, and unlabored on room air. Lungs CTA bilaterally, no rhonchi, no rales, no wheezing, and no accessory muscle usage. Abdominal: soft, nontender to palpation. Bowel Sounds x 4. Ext: ROM intact. No gross muscle atrophy, no edema, no contractures Neuro: Speech clear, face symmetrical and CN II-XII grossly intact with no noted focal neuro deficits Psych: Alert and oriented to person, place, time, and situation. Appropriate and pleasant affect. Assessment and Plan of Care: Acute cholecystitis status post laparoscopic cholecystectomy 12/18/2024. E. coli infection Hyperbilirubinemia with transaminitis -General Surgery following, took patient for laparoscopic cholecystectomy 12/18/2024. -Blood culture showing no growth to date. Wound culture obtained during surgery preliminarily positive for E. coli. -Infectious disease consulted, appreciate recommendation -Continue IV antibiotics with Zosyn 3.375 g every 8 hours. -Continue symptomatic care and pain management Toradol 15 mg IVP every 6 hours as needed for pain and Zofran 4 mg IVP every 8 hours as needed for nausea or vomiting. -GI prophylaxis with Protonix 40 mg twice daily. -Bowel regimen with MiraLAX 17 g nightly. Hypertension -Monitor vital signs and continue daily medication regimen with amlodipine 2.5 mg daily. Hyperlipidemia -At this time we continue atorvastatin 10 mg daily, if transaminitis worsens will hold. Anxiety with depression -Continue Wellbutrin XL 300 mg nightly, Celexa 40 mg nightly, and BuSpar 10 mg twice daily as needed for anxiety. Data and imaging reviewed: -Vital signs reviewed. Blood pressure 133/83, heart rate 88, respiratory rate 18, temp 98.3 F, and SpO2 of 93% on room air -Morning labs reviewed. Blood culture showing no growth to date. Wound culture obtained during surgery preliminarily positive for E. coli. CBC showing stable normocytic anemia with hemoglobin of 10.1. BMP unremarkable. Blood glucose was 115. Liver profile showing improving but continued transaminitis with AST of 34, ALT 83, alkaline phosphatase of 313. CODE STATUS Full code DVT prophylaxis: SCDs Discussed with: Patient, infectious disease physician, general surgery PA and RN Anticipated discharge date: Pending final culture and sensitivity Anticipated discharge place: Home Patient was seen independently by Nurse Pracitioner. This document was prepared using [employer] dictation software. Please allow for errors in automatic lathe operator, while rare they do occur. Oscar Abad NP rendered care for this patient independently, reviewed the fi ndings and plan as documented in the note above and agree with plan. I did not physically speak with or examine the patient on this date. Objective - Vital Signs Vital signs: Vital Signs Temp 98.3 F 12/21/24 07:21 Pulse 79 12/21/24 07:21 Resp 18 12/21/24 07:21 BP 133/83 12/21/24 07:21 Pulse Ox 93 L 12/21/24 07:21 FiO2 Intake & Output 12/20/24 12/21/24 12/21/24 18:59 06:59 18:59 Intake Total 540 Output Total 1200 Balance -660 Intake: Oral 540 Output: Urine 1200 Other: Voiding Method Urinal # Voids 4 3 - Labs CBC & Chem 7: 12/21/24 02:53 12/21/24 02:53 Labs: Abnormal Lab Results - Last 24 Hours (Table) 12/20/24 12/20/24 12/20/24 Range/Units 06:21 06:21 20:27 RBC 3.68 L (4.40-5.60) X 10*6/uL Hgb 10.1 L (13.0-17.0) g/dL Hct 31.8 L (39.6-50.0) % MCHC 31.8 L (32.0-37.0) g/dL Immature Gran # 0.12 H (0.00-0.04) X 10*3/uL Lymphocytes # 0.63 L (0.90-5.00) X 10*3/uL Monocytes # (0.20-1.00) X 10*3/uL BUN (9.0-27.0) mg/dL Glucose (70-110) mg/dL POC Glucose (mg/dL) 111 H (70-110) mg/dL Calcium 7.9 L (8.7-10.3) mg/dL Conjugated Bilirubin 0.46 H (0.20-0.40) mg/dL AST 49 H (14-35) U/L ALT 92 H (10-49) U/L Alkaline Phosphatase 296 H (41-126) U/L Total Protein 5.0 L (6.2-8.2) g/dL Albumin 2.9 L (3.8-4.9) g/dL Albumin/Globulin Ratio 1.38 L (1.60-3.17) Ratio 12/21/24 12/21/24 Range/Units 02:53 02:53 RBC 3.66 L (4.40-5.60) X 10*6/uL Hgb 10.1 L (13.0-17.0) g/dL Hct 31.7 L (39.6-50.0) % MCHC 31.9 L (32.0-37.0) g/dL Immature Gran # 0.13 H (0.00-0.04) X 10*3/uL Lymphocytes # 0.68 L (0.90-5.00) X 10*3/uL Monocytes # 1.04 H (0.20-1.00) X 10*3/uL BUN 8.5 L (9.0-27.0) mg/dL Glucose 115 H (70-110) mg/dL POC Glucose (mg/dL) (70-110) mg/dL Calcium 8.2 L (8.7-10.3) mg/dL Conjugated Bilirubin (0.20-0.40) mg/dL AST (14-35) U/L ALT 83 H (10-49) U/L Alkaline Phosphatase 313 H (41-126) U/L Total Protein 5.1 L (6.2-8.2) g/dL Albumin 2.8 L (3.8-4.9) g/dL Albumin/Globulin Ratio 1.22 L (1.60-3.17) Ratio Microbiology - Last 24 Hours (Table) 12/18/24 16:40 Gram Stain - Preliminary Other - Other Wound Culture - Preliminary Escherichia coli
[2024-12-21 20:49] LABS: Glucose,Whole Blood 113 mg/dL (70-110)
[2024-12-22 06:00] LABS: Glucose,Whole Blood 109 mg/dL (70-110)
[2024-12-22 08:57] VITALS: BP 120/73; PULSE 91; RESP 17; TEMP 98
--- NOTE | 2024-12-22 13:47 | P.PN ---
Subjective Progress Note Date: 12/22/24 SURGICAL PROGRESS NOTE CHIEF COMPLAINT: Acute cholecystitis HISTORY OF PRESENT ILLNESS: Patient is postop day #4 status post robotic cholecystectomy for acute purulent cholecystitis. Patient's pain is controlled. He has been up and ambulating. He is having bowel movements and flatus. Denies any nausea or vomiting. JUDIE drain 20 mL bile tinged output. Bilirubin levels are normal. abdominal Culture growing E. coli PHYSICAL EXAM: VITAL SIGNS: Reviewed. GENERAL: Well-developed in no acute distress. ABDOMEN: Soft. Nondistended. JUDIE drain bile tinged NEUROLOGIC: Alert and oriented. Cranial nerves II through XII grossly intact. ASSESSMENT: 1. Acute cholecystitis PLAN: -Patient can be discharged from surgical standpoint with JUDIE drain -Continue regular diet -Continue antibiotics per ID -Encourage patient to ambulate -Continue pain management Physician Explosive Ordnance Handler note has been reviewed by physician. Signing provider agrees with the documented findings, assessment, and plan of care. Objective - Vital Signs Vital signs: Vital Signs Temp 98.0 F 12/22/24 07:39 Pulse 91 12/22/24 07:39 Resp 17 12/22/24 07:39 BP 120/73 12/22/24 07:39 Pulse Ox 94 L 12/22/24 09:00 FiO2 Intake & Output 12/21/24 12/22/24 12/22/24 18:59 06:59 18:59 Output Total 1622 Balance -1622 Output: Drainage 22 Right Abdomen 22 Urine 1600 Other: # Voids 2 6 - Labs CBC & Chem 7: 12/21/24 02:53 12/21/24 02:53 Labs: Abnormal Lab Results - Last 24 Hours (Table) 12/21/24 Range/Units 20:43 POC Glucose (mg/dL) 113 H (70-110) mg/dL Microbiology - Last 24 Hours (Table) 12/18/24 16:40 Gram Stain - Final Other - Other Wound Culture - Final Escherichia coli 12/16/24 12:52 Blood Culture - Final Blood 12/18/24 16:40 Anaerobic Culture - Preliminary Other - Other
--- NOTE | 2024-12-22 14:31 | P.PN ---
Subjective Progress Note Date: 12/22/24 Principal diagnosis: Reason for follow-up is purulent cholecystitis Patient is a 59-year-old male with a past medical history significant for hypertension hyperlipidemia osteoarthritis reflux presenting to the hospital for evaluation of abdominal pain has been diagnosed with a purulent cholecystitis status post cholecystectomy. On today's evaluation that is 12/22/2024, the patient continues to be afebrile, the patient is on room air and breathing comfortably, the Pt denies having any chest pain or cough, the patient denies having any nausea or vomiting did have a bowel movement abdominal pain has decreased in intensity feeling better wants to go home. No new lab has been obtained today abdominal culture with E. coli that is a sensitive pathogen Objective - Vital Signs Vital signs: Vital Signs Temp 98.0 F 12/22/24 07:39 Pulse 91 12/22/24 07:39 Resp 17 12/22/24 07:39 BP 120/73 12/22/24 07:39 Pulse Ox 94 L 12/22/24 09:00 FiO2 Intake & Output 12/21/24 12/22/24 12/22/24 18:59 06:59 18:59 Output Total 1622 Balance -1622 Output: Drainage 22 Right Abdomen 22 Urine 1600 Other: # Voids 2 - Exam GENERAL DESCRIPTION: Middle-age male lying in bed in no distress RESPIRATORY SYSTEM: Unlabored breathing , decreased breath sounds at bases HEART: S1 S2 regular rate and rhythm , ABDOMEN: Soft , no tenderness EXTREMITIES: No edema feet - Labs CBC & Chem 7: 12/21/24 02:53 12/21/24 02:53 Labs: Abnormal Lab Results - Last 24 Hours (Table) 12/21/24 Range/Units 20:43 POC Glucose (mg/dL) 113 H (70-110) mg/dL Microbiology - Last 24 Hours (Table) 12/18/24 16:40 Gram Stain - Final Other - Other Wound Culture - Final Escherichia coli 12/16/24 12:52 Blood Culture - Final Blood 12/18/24 16:40 Anaerobic Culture - Preliminary Other - Other Assessment and Plan (1) Acute cholecystitis Status: Acute Code(s): K81.0 - ACUTE CHOLECYSTITIS SNOMED Code(s): 43877568 (2) Leukocytosis Status: Acute Code(s): D72.829 - ELEVATED WHITE BLOOD CELL COUNT, UNSPECIFIED SNOMED Code(s): 168689925 Plan: 1patient presented hospital with abdominal pain did have elevated liver enzymes has been diagnosed with acute cholecystitis status post cholecystectomy with evidence of purulent cholecystitis and abdominal culture now growing E. coli with sensitivities pending. 2patient with elevated white count related to acute cholecystitis that has subsequent normalized. 3patient abdominal cultures with E. coli that is a sensitive pathogen blood culture have been negative advised to finish therapy with a 10-day course of oral Augmentin discussed with the EVP SAL[employer] for admitting team Dictation was produced using [employer] dictation software. please excuse any grammatical, word or spelling errors.
--- NOTE | 2024-12-22 18:16 | P.DS ---
Providers Date of admission: 12/16/24 12:41 Expected date of discharge: 12/22/24 Attending physician: Duane Schultz Consults: 12/16/24 12:41 Consult Physician Urgent Consulting Provider: Nicole Burton Consult Reason/Comments: acute cholecystitis Do you want consulting provider notified?: Already Contacted Consult Physician Urgent Consulting Provider: Sheri Lozada Consult Reason/Comments: acute cholelithiasis, elevated liver enzymes Do you want consulting provider notified?: Yes 12/20/24 12:51 Consult Physician Routine Consulting Provider: Zaynab Maldonado Consult Reason/Comments: positive cultures Do you want consulting provider notified?: Yes Primary care physician: Zara Aliya [facility] Course: Discharge Diagnosis: Acute cholecystitis status post laparoscopic cholecystectomy 12/18/2024. Patient discharged with JUDIE drain in place. To follow-up with general surgery in 1 week.. E. coli infection. Blood culture positive for E. coli with no resistance reported. Patient received a course of IV antibiotics with Zosyn and per recommendations of infectious disease being discharged home on an additional 10- day course of Augmentin 875/125 mg tablets every 12 hours. Patient to follow-up outpatient with PCP in 1 to 2 days and with general surgeon in 1 week. Hyperbilirubinemia with transaminitis Hypertension. Monitor vital signs and continue daily medication regimen with amlodipine 2.5 mg daily. Hyperlipidemia. Continue atorvastatin 10 mg daily, if transaminitis worsens will hold. Anxiety with depression. Continue Wellbutrin XL 300 mg nightly, Celexa 40 mg nightly, and BuSpar 10 mg twice daily as needed for anxiety. Hospital Course: Patient is a pleasant 59-year-old male with a past COPD not home oxygen dependent, GERD, anxiety with depression. He presented to the hospital on 12/16/2024 secondary to abdominal pain/discomfort accompanied by nausea and vomiting. Upon arrival to our facility, patient underwent evaluation in the emergency department.. Vital signs upon arrival show blood pressure 118/80, heart rate 116, respiratory rate 18, temp 97.7 F, and SpO2 of 98% on room air. EKG completed showing sinus tachycardia 103 bpm. Labs completed and reviewed. CBC showing leukocytosis with WBC count of 17.11. BMP showing elevated BUN of 21 and blood glucose of 123. Lactic acid was 1.2. Liver profile showed elevated total bili of 1.7 and ALT of 66. Troponin was negative at less than 0.012. Lipase 23. CT abdomen and pelvis showing acute cholecystitis with a 4 mm calculus in the gallbladder neck, nearby reactive inflammatory changes involving the hepatic flexure and small amount of free fluid in the pelvis. Krystyna parrish was admitted under services with consultation to gastroenterology to rule out choledocholithiasis and to general surgery for acute cholecystitis. MRCP was completed showing findings of acute cholecystitis redemonstrated with suboptimal evaluation of cystic duct and portions of the common bile duct but visualized portions of the common bile duct are not dilated and no definitive internal gallstones and gallbladder neck. Patient underwent laparoscopic cholecystectomy 12/18/2024. Blood culture showing no growth to date. Wound culture obtained during surgery preliminarily positive for E. coli. Infectious disease consulted. Blood culture positive for E. coli with no resistance reported. Patient received a course of IV antibiotics with Zosyn and per recommendations of infectious disease being discharged home on an additional 10- day course of Augmentin 875/125 mg tablets every 12 hours. Patient to follow-up outpatient with PCP in 1 to 2 days and with general surgeon in 1 week. Physical exam: Vital signs reviewed and stable. General: Nontoxic, no distress and appears stated age. Derm: Skin warm and dry, normal coloration for ethnicity. Head: Atraumatic, normocephalic and symmetric. Eyes: EOM's intact, no lid lag, and anicteric sclera Mouth: no lip lesions, mucus membranes moist Cardiovascular: regular rate and rhythm with normal S1S2, no murmur, positive posterior tibial pulses bilaterally, and cap refill < 2 seconds. Lungs: Respirations even, regular, and unlabored on room air. Lungs CTA bilaterally, no rhonchi, no rales, no wheezing, and no accessory muscle usage. Abdominal: soft, nontender to palpation. Bowel Sounds x 4. Ext: ROM intact. No gross muscle atrophy, no edema, no contractures Neuro: Speech clear, face symmetrical and CN II-XII grossly intact with no noted focal neuro deficits Psych: Alert and oriented to person, place, time, and situation. Appropriate and pleasant affect. A total of 34 minutes of time were spent preparing this complex discharge summary. Pt was discharged on 12/22/2024 at 9:57 PM. Patient was seen independently by Nurse Practitioner. This document was prepared using [employer] dictation software. Please allow for errors in animal husbandry worker while rare they do occur. Oscar Abad VALVE INSERTER rendered care for this patient independently, reviewed the findings and plan as documented in the note above. I did not physically speak with or examine the patient on this date. Patient Condition at Discharge: Stable Plan - Discharge Summary Discharge Rx Participant: Yes New Discharge Prescriptions: New Amoxic-Pot Clav 875-125Mg [Augmentin 875-125] 1 tab PO BID 10 Days #20 tab HYDROcodone/APAP 5-325MG [[place] 5-325] 1 tab PO Q6HR PRN 3 Days #12 tab PRN Reason: Pain polyethylene glycoL 3350 [Miralax] 17 gm PO HS 30 Days #30 packet Continue Citalopram Hydrobromide [CeleXA] 40 mg PO HS Simvastatin [Zocor] 20 mg PO DAILY amLODIPine BESYLATE [Norvasc] 2.5 mg PO DAILY Dicyclomine [Bentyl] 20 mg PO TID Pantoprazole [Protonix] 40 mg PO BID busPIRone HCL 10 mg PO BID PRN PRN Reason: Anxiety buPROPion XL [Wellbutrin XL] 300 mg PO HS Celecoxib [CeleBREX] 200 mg PO BID PRN PRN Reason: Pain Budesonide/Formoterol Fumarate [Symbicort 160-4.5 Mcg Inhaler] 2 puff INHALATION RT-BID Discharge Medication List Citalopram Hydrobromide [CeleXA] 40 mg PO HS 08/22/16 [History] Simvastatin [Zocor] 20 mg PO DAILY 04/25/20 [History] amLODIPine BESYLATE [Norvasc] 2.5 mg PO DAILY 04/25/20 [History] Pantoprazole [Protonix] 40 mg PO BID 03/20/23 [History] Dicyclomine [Bentyl] 20 mg PO TID 03/22/23 [History] Budesonide/Formoterol Fumarate [Symbicort 160-4.5 Mcg Inhaler] 2 puff INHALATION RT-BID 12/16/24 [History] Celecoxib [CeleBREX] 200 mg PO BID PRN 12/16/24 [History] buPROPion XL [Wellbutrin XL] 300 mg PO HS 12/16/24 [History] busPIRone HCL 10 mg PO BID PRN 12/16/24 [History] polyethylene glycoL 3350 [Miralax] 17 gm PO HS 30 Days #30 packet 12/20/24 [Rx] Amoxic-Pot Clav 875-125Mg [Augmentin 875-125] 1 tab PO BID 10 Days #20 tab 12/22/24 [Rx] HYDROcodone/APAP 5-325MG [[place] 5-325] 1 tab PO Q6HR PRN 3 Days #12 tab 12/22/24 [Rx] Follow up Appointment(s)/Referral(s): Zara Pisano MD [Primary Care Provider] - 01/11/25 10:15 am Nicole Burton DO [Doctor of Osteopathic Medicine] - 12/29/24 8:45 am Patient Instructions/Handouts: Mark-Jiménez Drain Care (DC), Laparoscopic Cholecystectomy (DC) Activity/Diet/Wound Care/Special Instructions: Activity: As tolerated. Diet: Low-fat diet Special Instructions: Take all of your medications as directed and remember to keep all of your doctor's appointments and follow-up as needed. Thank you for allowing us to participate in your care, it was truly a pleasure having you for our patient!!! Discharge/Stand Alone Forms: Work/Release Restrictions Form Discharge Disposition: HOME SELF-CARE
--- NOTE | 2024-12-22 21:19 | P.PN ---
Subjective Progress Note Date: 12/21/24 Principal diagnosis: Reason for follow-up is purulent cholecystitis Patient is a 59-year-old male with a past medical history significant for hypertension hyperlipidemia osteoarthritis reflux presenting to the hospital for evaluation of abdominal pain has been diagnosed with a purulent cholecystitis status post cholecystectomy. On today's evaluation that is 12/21/2024,the patient remains to be afebrile, patient is on room air not requiring supplemental oxygen and denies any shortness of breath no chest pain or cough.Patient denies having any nausea or vomiting, abdominal pain has decreased in intensity and did have a small bowel movement. Patient white count 7.67, creatinine 0.7 abdominal culture with E. coli sensitivities pending blood culture negative Objective - Vital Signs Vital signs: Vital Signs Temp 98.3 F 12/21/24 07:21 Pulse 79 12/21/24 07:21 Resp 18 12/21/24 07:21 BP 133/83 12/21/24 07:21 Pulse Ox 93 L 12/21/24 07:21 FiO2 Intake & Output 12/20/24 12/21/24 12/21/24 18:59 06:59 18:59 Intake Total 540 Output Total 1200 Balance -660 Intake: Oral 540 Output: Urine 1200 Other: Voiding Method Urinal # Voids 4 3 - Exam GENERAL DESCRIPTION: Middle-age male lying in bed in no distress RESPIRATORY SYSTEM: Unlabored breathing , decreased breath sounds at bases HEART: S1 S2 regular rate and rhythm , ABDOMEN: Soft , no tenderness EXTREMITIES: No edema feet - Labs CBC & Chem 7: 12/21/24 02:53 12/21/24 02:53 Labs: Abnormal Lab Results - Last 24 Hours (Table) 12/20/24 12/21/24 12/21/24 Range/Units 20:27 02:53 02:53 RBC 3.66 L (4.40-5.60) X 10*6/uL Hgb 10.1 L (13.0-17.0) g/dL Hct 31.7 L (39.6-50.0) % MCHC 31.9 L (32.0-37.0) g/dL Immature Gran # 0.13 H (0.00-0.04) X 10*3/uL Lymphocytes # 0.68 L (0.90-5.00) X 10*3/uL Monocytes # 1.04 H (0.20-1.00) X 10*3/uL BUN 8.5 L (9.0-27.0) mg/dL Glucose 115 H (70-110) mg/dL POC Glucose (mg/dL) 111 H (70-110) mg/dL Calcium 8.2 L (8.7-10.3) mg/dL ALT 83 H (10-49) U/L Alkaline Phosphatase 313 H (41-126) U/L Total Protein 5.1 L (6.2-8.2) g/dL Albumin 2.8 L (3.8-4.9) g/dL Albumin/Globulin Ratio 1.22 L (1.60-3.17) Ratio Microbiology - Last 24 Hours (Table) 12/18/24 16:40 Gram Stain - Preliminary Other - Other Wound Culture - Preliminary Escherichia coli Assessment and Plan (1) Acute cholecystitis Status: Acute Code(s): K81.0 - ACUTE CHOLECYSTITIS SNOMED Code(s): 46512743 (2) Leukocytosis Status: Acute Code(s): D72.829 - ELEVATED WHITE BLOOD CELL COUNT, UNSPECIFIED SNOMED Code(s): 385743251 Plan: 1patient presented hospital with abdominal pain did have elevated liver enzymes has been diagnosed with acute cholecystitis status post cholecystectomy with evidence of purulent cholecystitis and abdominal culture now growing E. coli with sensitivities pending. 2patient with elevated white count related to acute cholecystitis that has dow bsequent normalized. 3patient will be treated with Zosyn while waiting for the sensitivity on the E. coli to be finalized to determine discharge antibiotics Dictation was produced using [employer] dictation software. please excuse any grammatical, word or spelling errors.
== END 2024-12-22 12:00 | disposition home or self-care (01) | DRG 854 ==
LOC: EC 08:50 → 4SSUR 12:41
PROVIDERS: ADMIT Student in an Organized Health Care Education/Training Program; ATTEND Student in an Organized Health Care Education/Training Program
PROC: 8E0W4CZ Robotic Assisted Procedure of Trunk Region, Percutaneous Endoscopic Approach (ICD-10-PCS; principal; 2024-12-18 15:20)
PROC: 0FT44ZZ Resection of Gallbladder, Percutaneous Endoscopic Approach (ICD-10-PCS; principal; 2024-12-18 15:20)
DX: A41.51 Sepsis due to Escherichia coli [E. coli] (principal); K80.00 Calculus of gallbladder with acute cholecystitis without obstruction; J44.9 Chronic obstructive pulmonary disease, unspecified; F32.A Depression, unspecified; I10 Essential (primary) hypertension; M50.30 Other cervical disc degeneration, unspecified cervical region; F41.9 Anxiety disorder, unspecified; J45.909 Unspecified asthma, uncomplicated; K21.9 Gastro-esophageal reflux disease without esophagitis; E78.5 Hyperlipidemia, unspecified; Z79.51 Long term (current) use of inhaled steroids; Z79.1 Long term (current) use of non-steroidal anti-inflammatories (NSAID); Z79.899 Other long term (current) drug therapy; Z87.891 Personal history of nicotine dependence
CPT/HCPCS: 36415; 74177; 74181; 76705; 80048; 80053; 80076; 81001; 83605; 83690; 83735; 84484; 85025; 85027; 87040; 87070; 87075; 87077; 87186; 87205; 88304; 93005; 94640; 94760; 96361; 96365; 96366; 96375; 99285